=== PATIENT | female | born 1970 | race Hispanic/Latino ===

== ENCOUNTER 2018-01-27 10:06 | Emergency (ER) | payer OTHER ==
--- NOTE | 2018-01-27 11:28 | RAD REPORT ---
EXAM DESCRIPTION: CT - Stone Protocol - 01/27/2018 10:55 am CLINICAL HISTORY: Abdominal pain. Nausea and diarrhea COMPARISON: May 2017 TECHNIQUE: Computed axial tomography of the abdomen pelvis was obtained without oral or IV contrast. Lack of IV and oral contrast limits evaluation of solid organs, bowel, and vessels. Coronal reformat sam images were obtained and reviewed. All CT scans are performed using dose optimization technique as appropriate and may include automated exposure control or mA/KV adjustment according to patient size. FINDINGS: A renal calculus is not seen. An ureteral calculus is not noted. A bladder calculus is not present. The liver, spleen, pancreas and adrenals appear grossly normal Diverticula stem from the colon without evidence of diverticulitis. The appendix appears normal The gallbladder is been removed. A small umbilical hernia is present. IMPRESSION: Negative for a genitourinary calculus
[2018-01-27 11:39] LABS: Absolute Lymphocytes (CBC) 2.1 K/uL (0.7-4.9); Absolute Monocytes 0.5 K/uL (0.1-1.3); Absolute Neutrophil 2.8 K/uL (1.8-8.0); Basophils % 0.9 % (0-1.3); Eosinophils % 1.7 % (0-4.4); Hematocrit 33.9 % (36.0-45.0); Lymphocytes % 37.7 % (15.3-44.8); MCH 27.4 pg (27.0-35.0); MCV 84.6 fL (80-100); MPV 8.9 fL (7.6-11.3); Monocytes % 9.1 % (3.3-12.3); RBC Red Blood Cell Count 4.01 M/uL (3.86-4.86)
[2018-01-27 11:55] LABS: ALT/SGPT 26 IU/L (10-60); AST/SGOT 29 IU/L (10-42); Bicarbonate 28 mEq/L (21-31); Glucose Level 112 mg/dL (65-120); Lipase 29 U/L (22-51); Potassium 3.5 mEq/L (3.6-5.0); Sodium Level 139 mEq/L (135-145)
[2018-01-27 11:58] LABS: Urine Blood 2+ (NEG); Urine Glucose NEGATIVE (NEG); Urine Protein TRACE (NEG); Urine Specific Gravity >1.030 (1.005-1.030); Urine pH 5.5 (5.0-7.0)
[2018-01-27 12:01] LABS: Alkaline Phosphatase 75 IU/L (42-121); BUN Blood Urea Nitrogen 12 mg/dL (6-20); Bilirubin Direct < 0.1 mg/dL (0-0.2); Bilirubin Total 0.6 mg/dL (0.3-1.2); Protein, Total 7.9 g/dL (6.0-8.3)
[2018-01-27 12:09] LABS: Urine Amorphous Sediment 3+ /HPF (NONE SEEN); Urine Bacteria NONE SEEN /HPF (<20); Urine Culture Reflex Order NOT NEEDED; Urine RBC <5 /HPF (NONE SEEN)
[2018-01-27] MEDS ORDERED: NA CHLORIDE 0.9% 1,000 ML ONE (12:20)
--- NOTE | 2018-01-27 13:15 | EDPHYS ---
Physician Documentation [facility] Name: Maria G Ndiaye Age: 47 yrs Sex: Female : 1970 Arrival Date: 01/27/2018 Time: 10:09 Bed 30 Private MD: out of town, doctor ED Physician Jarod Grullon HPI: 01/27 13:59 This 47 yrs old Female presents to ER via Ambulatory with complaints of gs Abdominal Swelling. 13:59 The patient presents with abdominal pain that is diffuse. Onset: The symptoms/episode gs began/occurred 2 day(s) ago. The symptoms do not radiate. Associated signs and symptoms: Pertinent positives: constipation. The symptoms are described as crampy. Modifying factors: The symptoms are alleviated by nothing, the symptoms are aggravated by nothing. Severity of pain: At its worst the pain was moderate in the emergency department the pain has improved mildly. The patient has experienced similar episodes in the past, a few times, and the symptoms today are exactly the same, to when the patient was apparently diagnosed with diverticulitis. 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 - Social history:: Smoking status: Patient/guardian denies using tobacco. - Ebola Screening: : No symptoms or risks identified at this time. ROS: 13:59 Abdomen/GI: Negative for nausea and vomiting. gs 13:59 All other systems are negative. Exam: 13:59 Head/Face: Normocephalic, atraumatic. Eyes: Pupils equal round and reactive to light, gs extra-ocular motions intact. Lids and lashes normal. Conjunctiva and sclera are non-icteric and not injected. Cornea within normal limits. Periorbital areas with no swelling, redness, or edema. ENT: Nares patent. No nasal discharge, no septal abnormalities noted. Tympanic membranes are normal and external auditory canals are clear. Oropharynx with no redness, swelling, or masses, exudates, or evidence of obstruction, uvula midline. Mucous membranes moist. Neck: Trachea midline, no thyromegaly or masses palpated, and no cervical lymphadenopathy. Supple, full range of motion without nuchal rigidity, or vertebral point tenderness. No Meningismus. Chest/axilla: Normal chest wall appearance and motion. Nontender with no deformity. No lesions are appreciated. Cardiovascular: Regular rate and rhythm with a normal S1 and S2. No gallops, murmurs, or rubs. Normal PMI, no JVD. No pulse deficits. Respiratory: Lungs have equal breath sounds bilaterally, clear to auscultation and percussion. No rales, rhonchi or wheezes noted. No increased work of breathing, no retractions or nasal flaring. Back: No spinal tenderness. No costovertebral tenderness. Full range of motion. Skin: Warm, dry with normal turgor. Normal color with no rashes, no lesions, and no evidence of cellulitis. MS/ Extremity: Pulses equal, no cyanosis. Neurovascular intact. Full, normal range of motion. Neuro: Awake and alert, GCS 15, oriented to person, place, time, and situation. Cranial nerves II-XII grossly intact. Motor strength 5/5 in all extremities. Sensory grossly intact. Cerebellar exam normal. Normal gait. 13:59 Constitutional: The patient appears alert, awake. 13:59 Abdomen/GI: Palpation: moderate abdominal tenderness, in all quadrants, rebound tenderness, is not appreciated. 15:30 ECG was reviewed by the Attending Physician. Vital Signs: 10:24 BP 118 / 79; Pulse 79; Resp 18 S; Temp 97.0(TE); Pulse Ox 99% on R/A; Weight 85.28 kg aa5 (R); Height 5 ft. 4 in. (162.56 cm) (R); Pain 0/10; 11:42 BP 142 / 88; Pulse 62; Resp 18; Pulse Ox 100% on R/A; aj 12:55 BP 153 / 86; Pulse 72; Resp 18; Pulse Ox 98% on R/A; aj 10:24 Body Mass Index 32.27 (85.28 kg, 162.56 cm) aa5 MDM: 10:35 Patient medically screened. 13:59 Differential diagnosis: bowel obstruction, diverticulitis, gastritis, non-specific abd gs pain. Data reviewed: vital signs, nurses notes. Response to treatment: the patient's symptoms have markedly improved after treatment, and as a result, I will discharge patient. 01/27 10:40 Order name: Hepatic Function; Complete Time: 12:11 gs 01/27 10:40 Order name: Basic Metabolic Panel; Complete Time: 12:11 gs 01/27 10:40 Order name: CBC with Diff; Complete Time: 12:11 gs 01/27 10:40 Order name: Lipase; Complete Time: 12:11 gs 01/27 10:40 Order name: Urine Microscopic Only; Complete Time: 12:11 gs 01/27 11:55 Order name: Urine Dipstick--Ancillary (enter results); Complete Time: 12:11 bd 01/27 10:40 Order name: IV Saline Lock; Complete Time: 11:30 gs 01/27 10:40 Order name: Labs collected and sent; Complete Time: 11:30 gs 01/27 10:40 Order name: Urine Dipstick-Ancillary (obtain specimen); Complete Time: 11:30 gs 01/27 10:40 Order name: EKG; Complete Time: 10:40 01/27 10:40 Order name: CT Stone Protocol; Complete Time: 11:36 gs 01/27 11:55 Order name: Urine --Ancillary (enter results); Complete Time: 12:11 bd EC:30 Rate is 67 beats/min. Rhythm is regular. CA interval is normal. QRS interval is gs prolonged. T waves are Normal. No ST changes noted. Clinical impression: Abnormal EKG without significant change. Interpreted by me. Administered Medications: 12:30 Drug: NS 0.9% 1000 ml Route: IV; Rate: 1 bolus; Site: right antecubital; juan 13:38 Follow up: Response: No adverse reaction; IV Status: Completed infusion; IV Intake: aj 1000ml Disposition: 01/27/18 13:14 Discharged to Home. Impression: Generalized abdominal pain. - Condition is Stable. - Discharge Instructions: Abdominal Pain, Adult. - Prescriptions for Miralax 17 gram/dose Oral - take 1 packet by ORAL route once daily dilute powder in 8 ounces of water or juice; 1 bottle. - Medication Reconciliation Form, Thank You Letter, Antibiotic Education, Prescription Opioid Use form. - Follow up: Private Physician; When: 2 - 3 days; Reason: Re-evaluation by your physician. Signatures: Dispatcher [employer] Lakia Paulson, RN Desirae Pabon RN RN aa5 Jarod Grullon MD MD gs Corrections: (The following items were deleted from the chart) 13:58 13:14 01/27/2018 13:14 Discharged to Home. Impression: Generalized abdominal pain. aj Condition is Stable. Forms are Medication Reconciliation Form, Thank You Letter, Antibiotic Education, Prescription Opioid Use. Follow up: Private Physician; When: 2 - 3 days; Reason: Re-evaluation by your physician. gs
--- NOTE | 2018-01-27 13:15 | ER ---
Nurse's Notes [facility] Name: Maria G Ndiaye Age: 47 yrs Sex: Female : 1970 Arrival Date: 01/27/2018 Time: 10:09 Bed 30 Private MD: out of town, doctor Diagnosis: Generalized abdominal pain Presentation: 01/27 10:20 Presenting complaint: Patient states: "I feel bloated and I don't know if it's another aa5 diverticulosis attack". Pt states "I also feel short of breath on and off". Pt reports nausea and diarrhea, denies vomiting. Transition of care: patient was not received from another setting of care. Onset of symptoms was January 2018. Risk Assessment: Do you want to hurt yourself or someone else? Patient reports no desire to harm self or others. Initial Sepsis Screen: Does the patient meet any 2 criteria? No. Patient's initial sepsis screen is negative. Does the patient have a suspected source of infection? No. Patient's initial sepsis screen is negative. Care prior to arrival: None. 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 - Social history:: Smoking status: Patient/guardian denies using tobacco. - Ebola Screening: : No symptoms or risks identified at this time. Screenin:14 Abuse screen: Denies threats or abuse. Denies injuries from another. Nutritional aj screening: No deficits noted. Tuberculosis screening: No symptoms or risk factors identified. Fall Risk None identified. Assessment: 11:13 Reassessment: Attempted to assess patient. Patient was speaking on her phone with aj someone, I stated I would return when he finished her conversation. 11:27 General: Appears in no apparent distress. comfortable, Behavior is calm, cooperative, aj appropriate for age. Pain: Denies pain. Neuro: Level of Consciousness is awake, alert, obeys commands, Oriented to person, place, time, situation, Appropriate for age. Respiratory: Airway is patent Respiratory effort is even, unlabored, Respiratory pattern is regular, symmetrical. GI: Abdomen is non-distended, obese, Bowel sounds present X 4 quads. Abd is soft and non tender Reports bloating. Derm: Skin is intact, is healthy with good turgor, Skin is pink, warm \\T\\ dry. normal. 13:37 Reassessment: Patient appears in no apparent distress at this time. No changes from aj previously documented assessment. Patient and/or family updated on plan of care and expected duration. Pain level reassessed. Patient is alert, oriented x 3, equal unlabored respirations, skin warm/dry/pink. Patient states feeling better. Vital Signs: 10:24 BP 118 / 79; Pulse 79; Resp 18 S; Temp 97.0(TE); Pulse Ox 99% on R/A; Weight 85.28 kg aa5 (R); Height 5 ft. 4 in. (162.56 cm) (R); Pain 0/10; 11:42 BP 142 / 88; Pulse 62; Resp 18; Pulse Ox 100% on R/A; aj 12:55 BP 153 / 86; Pulse 72; Resp 18; Pulse Ox 98% on R/A; aj 10:24 Body Mass Index 32.27 (85.28 kg, 162.56 cm) aa5 ED Course: 10:09 Patient arrived in ED. mr 10:09 out of town, doctor is Private Physician. mr 10:21 Triage completed. aa5 10:21 Arm band placed on. aa5 10:29 Jarod Grullon MD is Attending Physician. gs 10:51 CT completed. Patient tolerated procedure well. Patient moved to CT via wheelchair. sw 10:54 CT Stone Protocol In Process Unspecified. EDMS 11:01 Lakia Powell, RN is Primary Nurse. aj 11:27 Patient has correct armband on for positive identification. aj 11:27 Inserted saline lock: 20 gauge in right antecubital area, using aseptic technique. aj Blood collected. 11:46 EKG done, by polysomnographic technologist. reviewed by Jarod Grullon MD. at1 13:37 No provider procedures requiring assistance completed. IV discontinued, intact, aj bleeding controlled, No redness/swelling at site. Pressure dressing applied. Administered Medications: 12:30 Drug: NS 0.9% 1000 ml Route: IV; Rate: 1 bolus; Site: right antecubital; aj 13:38 Follow up: Response: No adverse reaction; IV Status: Completed infusion; IV Intake: aj 1000ml Intake: 13:38 IV: 1000ml; Total: 1000ml. juan Outcome: 13:14 Discharge ordered by . bari 13:37 Discharged to home ambulatory. aj 13:37 Condition: good 13:37 Discharge instructions given to patient, family, Instructed on discharge instructions, follow up and referral plans. medication usage, Demonstrated understanding of instructions, follow-up care, medications, Prescriptions given X 1. 13:58 Patient left the ED. aj Signatures: Dispatcher [employer] EDLakia Lea, RN Dodie Espino Audri, RN RN aa5 Lakia fowler, department operations manager EKG Tat1 Radha Tarango Gregory, MD MD gs
--- NOTE | 2018-01-27 13:41 | EKG ---
Test Date: 2018-01-27 Test Time: 11:32:41 Entry Level Administrative Assistant: EUGENIA MEASUREMENT RESULTS: Intervals: Rate: 67 IL: 142 QRSD: 112 QT: 386 QTc: 407 Wayne: P: 31 IL: 142 QRS: 45 T: 22 INTERPRETIVE STATEMENTS: Normal sinus rhythm Normal ECG Compared to ECG 09/16/2017 21:49:05 Incomplete right bundle-branch block no longer present T-wave abnormality no longer present Electronically Signed On 01-27-18 13:40:30 CDT by Gama Sheldon
== END 2018-01-27 13:58 | disposition home or self-care (01) ==
LOC: ER 10:06
DX: R10.84 Generalized abdominal pain (principal); I10 Essential (primary) hypertension
CPT/HCPCS: 36415; 74176; 76377; 80048; 80076; 81003; 81015; 81025; 83690; 85025; 93005; 96360; 99284; J7030

== ENCOUNTER 2019-10-27 17:16 | Emergency (ER) | payer OTHER, SELFPAY ==
[2019-10-27 18:51] LABS: Absolute Lymphocytes (CBC) 2.4 K/uL (0.7-4.9); Basophils % 0.7 % (0-1.3); Hematocrit 35.2 % (36.0-45.0); MPV 8.5 fL (7.6-11.3)
[2019-10-27 18:55] LABS: Protime INR 0.96
--- NOTE | 2019-10-27 19:09 | RAD REPORT ---
EXAM DESCRIPTION: Jessica Single View10/27/2019 6:58 pm CLINICAL HISTORY: sob COMPARISON: 2018 FINDINGS: The lungs appear clear of acute infiltrate. The heart is normal size IMPRESSION: No acute abnormalities displayed
[2019-10-27 19:10] LABS: ALT/SGPT 31 U/L (12-78); AST/SGOT 17 U/L (15-37); Albumin 3.5 g/dL (3.4-5.0); Alkaline Phosphatase 98 U/L (45-117); BUN Blood Urea Nitrogen 15 mg/dL (7-18); Bicarbonate 28 mmol/L (21-32); Bilirubin Direct < 0.1 mg/dL (0-0.2); Bilirubin Total 0.2 mg/dL (0.2-1.0); Glucose Level 114 mg/dL (74-106); Magnesium 2.3 mg/dL (1.8-2.4); NT PRO-BNP 24 pg/mL (<125); Potassium 3.6 mmol/L (3.5-5.1); Protein, Total 8.2 g/dL (6.4-8.2); Sodium Level 141 mmol/L (136-145); Troponin (Emerg Dept Use Only) < 0.02 ng/mL (0.0-0.045)
--- NOTE | 2019-10-27 19:25 | EDPHYS ---
Physician Documentation [facility] Name: Maria G Ndiaye Age: 48 yrs Sex: Female : 1970 Arrival Date: 10/27/2019 Time: 17:18 Bed 18 Private MD: ED Physician Evert Buitrago HPI: 10/26 20:17 This 48 yrs old Female presents to ER via Ambulatory with complaints of kb Shortness Of Breath. 20:17 The patient has shortness of breath at rest. Onset: The symptoms/episode began/occurred kb 4 week(s) ago. Duration: The symptoms are continuous. The patient's shortness of breath is aggravated by nothing, is alleviated by nothing. Associated signs and symptoms: The patient has no apparent associated signs or symptoms. Severity of symptoms: At their worst the symptoms were mild moderate in the emergency department the symptoms are unchanged. The patient has experienced similar episodes in the past. The patient has not recently seen a physician. Pt reports shortness of breath for 4 weeks. States "I have anxiety so I kept thinking it was due to that.". 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 - Social history:: Smoking status: Patient denies any tobacco usage or history of. ROS: 20:14 Constitutional: Negative for fever, chills, and weight loss, ENT: Negative for injury, kb pain, and discharge, Neck: Negative for injury, pain, and swelling, Cardiovascular: Negative for chest pain, palpitations, and edema, Abdomen/GI: Negative for abdominal pain, nausea, vomiting, diarrhea, and constipation, Back: Negative for injury and pain, : Negative for injury, bleeding, discharge, and swelling, MS/Extremity: Negative for injury and deformity, Skin: Negative for injury, rash, and discoloration, Neuro: Negative for headache, weakness, numbness, tingling, and seizure. 20:14 Respiratory: Positive for shortness of breath. Exam: 20:14 Constitutional: This is a well developed, well nourished patient who is awake, alert, kb and in no acute distress. Head/Face: Normocephalic, atraumatic. ENT: Nares patent. No nasal discharge, no septal abnormalities noted. Tympanic membranes are normal and external auditory canals are clear. Oropharynx with no redness, swelling, or masses, exudates, or evidence of obstruction, uvula midline. Mucous membranes moist. Neck: Trachea midline, no thyromegaly or masses palpated, and no cervical lymphadenopathy. Supple, full range of motion without nuchal rigidity, or vertebral point tenderness. No Meningismus. Chest/axilla: Normal chest wall appearance and motion. Nontender with no deformity. No lesions are appreciated. Cardiovascular: Regular rate and rhythm with a normal S1 and S2. No gallops, murmurs, or rubs. Normal PMI, no JVD. No pulse deficits. Respiratory: Lungs have equal breath sounds bilaterally, clear to auscultation and percussion. No rales, rhonchi or wheezes noted. No increased work of breathing, no retractions or nasal flaring. Abdomen/GI: Soft, non-tender, with normal bowel sounds. No distension or tympany. No guarding or rebound. No evidence of tenderness throughout. Skin: Warm, dry with normal turgor. Normal color with no rashes, no lesions, and no evidence of cellulitis. MS/ Extremity: Pulses equal, no cyanosis. Neurovascular intact. Full, normal range of motion. Neuro: Awake and alert, GCS 15, oriented to person, place, time, and situation. Cranial nerves II-XII grossly intact. Motor strength 5/5 in all extremities. Sensory grossly intact. Cerebellar exam normal. Normal gait. Vital Signs: 17:31 BP 139 / 81; Pulse 79; Resp 19 S; Temp 97.1(O); Pulse Ox 97% on R/A; Weight 94.35 kg ca1 (R); Height 5 ft. 4 in. (162.56 cm) (R); Pain 0/10; 18:49 BP 158 / 87; Pulse 76; Resp 16 S; Pulse Ox 99% on R/A; jl7 17:31 Body Mass Index 35.70 (94.35 kg, 162.56 cm) ca1 MDM: 17:59 Patient medically screened. kb 20:14 Data reviewed: vital signs, nurses notes. Data interpreted: Pulse oximetry: on room air kb is 99 %. Interpretation: normal. Counseling: I had a detailed discussion with the patient and/or guardian regarding: the historical points, exam findings, and any diagnostic results supporting the discharge/admit diagnosis, lab results, radiology results, the need for outpatient follow up, a family practitioner, to return to the emergency department if symptoms worsen or persist or if there are any questions or concerns that arise at home. 10/26 18:38 Order name: Basic Metabolic Panel; Complete Time: 19:12 kb 10/26 18:38 Order name: CBC with Diff; Complete Time: 18:56 kb 10/26 18:38 Order name: LFT's; Complete Time: 19:12 kb 10/26 18:38 Order name: Magnesium; Complete Time: 19:12 kb 10/26 18:38 Order name: NT PRO-BNP; Complete Time: 19:12 kb 10/26 18:38 Order name: PT-INR; Complete Time: 19:12 kb 10/26 18:01 Order name: EKG - Nurse/Tech; Complete Time: 18:01 [facility] 10/26 18:01 Order name: EKG; Complete Time: 18:02 [facility] 10/26 18:38 Order name: Troponin (emerg Dept Use Only); Complete Time: 19:12 kb 10/26 18:38 Order name: XRAY Chest (1 view); Complete Time: 19:12 kb 10/26 18:38 Order name: Cardiac monitoring; Complete Time: 18:49 kb 10/26 18:38 Order name: IV Saline Lock; Complete Time: 18:49 kb 10/26 18:38 Order name: Labs collected and sent; Complete Time: 18:49 kb 10/26 18:38 Order name: Flu; Complete Time: 19:12 kb 10/26 18:38 Order name: O2 Per Protocol; Complete Time: 18:49 kb 10/26 18:38 Order name: O2 Sat Monitoring; Complete Time: 18:49 kb Administered Medications: No medications were administered Disposition: 10/27 10:48 Co-signature as Attending Physician, Evert Buitrago MD I agree with the assessment and kdr plan of care. Disposition: 10/27/19 19:24 Discharged to Home. Impression: Influenza due to certain identified influenza viruses. - Condition is Stable. - Discharge Instructions: Influenza, Adult, [id number]. - Work release form, Medication Reconciliation Form, Thank You Letter, Antibiotic Education, Prescription Opioid Use form. - Follow up: Emergency Department; When: As needed; Reason: Worsening of condition. Follow up: Private Physician; When: 2 - 3 days; Reason: Recheck today's complaints, Continuance of care, Re-evaluation by your physician. Signatures: Dispatcher [employer] EDMS Joselyn Hutchinson, CURBSTONE SETTER-C CURBSTONE SETTER-Evert Castelan MD MD kdr Leal, Jahala RN RN jl7 Sahara Mendez RN RN ea Anna Gordon RN RN ca1 Corrections: (The following items were deleted from the chart) 10/26 19:41 19:24 10/27/2019 19:24 Discharged to Home. Impression: Influenza due to certain ea identified influenza viruses. Condition is Stable. Forms are Medication Reconciliation Form, Thank You Letter, Antibiotic Education, Prescription Opioid Use. Follow up: Emergency Department; When: As needed; Reason: Worsening of condition. Follow up: Private Physician; When: 2 - 3 days; Reason: Recheck today's complaints, Continuance of care, Re-evaluation by your physician. kb
--- NOTE | 2019-10-27 19:25 | ER ---
Nurse's Notes [facility] Name: Maria G Ndiaye Age: 48 yrs Sex: Female : 1970 Arrival Date: 10/27/2019 Time: 17:18 Bed 18 Private MD: Diagnosis: Influenza due to certain identified influenza viruses Presentation: 10/26 17:31 Chief complaint: Patient states: SOB started about an hour ago. Reports SOB for 3-4 ca1 weeks, thought it was just anxiety but today was different. Denies cough and congestion, fever and sore throat. Reports back pains, general body weakness and nausea. Coronavirus screen: The patient has NOT traveled to a country currently being monitored by the [facility] within the last 14 days. The patient has NOT had contact with any known and/or suspected case of coronavirus. Ebola Screen: Patient negative for fever greater than or equal to 101.5 degrees Fahrenheit, and additional compatible Ebola Virus Disease symptoms Patient denies exposure to infectious person. Patient denies travel to an Ebola-affected area in the 21 days before illness onset. No symptoms or risks identified at this time. Initial Sepsis Screen: Does the patient meet any 2 criteria? No. Patient's initial sepsis screen is negative. Does the patient have a suspected source of infection? No. Patient's initial sepsis screen is negative. Risk Assessment: Do you want to hurt yourself or someone else? Patient reports no desire to harm self or others. Onset of symptoms was October 27, 2019. 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 - Social history:: Smoking status: Patient denies any tobacco usage or history of. Screenin:49 Abuse screen: Denies threats or abuse. Denies injuries from another. Nutritional jl7 screening: No deficits noted. Tuberculosis screening: No symptoms or risk factors identified. Fall Risk IV access (20 points). Total Chiu Fall Scale indicates No Risk (0-24 pts). Assessment: 18:00 General: Appears in no apparent distress. uncomfortable, Behavior is calm, cooperative, jl7 appropriate for age. Pain: Complains of pain in sore throat. Neuro: Level of Consciousness is awake, alert, obeys commands, Oriented to person, place, time, situation. Cardiovascular: Patient's skin is warm and dry. Rhythm is sinus rhythm. Respiratory: Airway is patent Respiratory effort is even, unlabored, Respiratory pattern is regular, symmetrical, Breath sounds are clear bilaterally. Derm: Skin is pink, warm \T\ dry. 19:10 General: Appears in no apparent distress. Behavior is calm, cooperative, appropriate ea for age. Pain: Denies pain. Neuro: Level of Consciousness is awake, alert, obeys commands, Oriented to person, place, time, situation. Cardiovascular: Patient's skin is warm and dry. Respiratory: Airway is patent Respiratory effort is even, unlabored, Respiratory pattern is regular, symmetrical. Derm: Skin is pink, warm \T\ dry. Vital Signs: 17:31 BP 139 / 81; Pulse 79; Resp 19 S; Temp 97.1(O); Pulse Ox 97% on R/A; Weight 94.35 kg ca1 (R); Height 5 ft. 4 in. (162.56 cm) (R); Pain 0/10; 18:49 BP 158 / 87; Pulse 76; Resp 16 S; Pulse Ox 99% on R/A; jl7 17:31 Body Mass Index 35.70 (94.35 kg, 162.56 cm) ca1 ED Course: 17:18 Patient arrived in ED. mr 17:34 Triage completed. ca1 17:36 Arm band placed on right wrist. ca1 17:39 Tien Correia, RN is Primary Nurse. jl7 17:44 EKG done, by ED staff, reviewed by Evert Buitrago MD. 3 17:58 Joselyn Hutchinson FNP-C is PHCP. kb 17:58 Evert Buitrago MD is Attending Physician. kb 18:00 Patient has correct armband on for positive identification. Placed in gown. Bed in low jl7 position. Call light in reach. Side rails up X 1. front desk monitor on. Pulse ox on. NIBP on. 18:43 Initial lab(s) drawn, by me, sent to lab. Flu and/or RSV swab sent to lab. Inserted jl7 saline lock: 20 gauge in right antecubital area, using aseptic technique. Blood collected. 18:58 XRAY Chest (1 view) In Process Unspecified. EDMS 19:15 IV discontinued, intact, bleeding controlled, No redness/swelling at site. Pressure ea dressing applied. 19:39 No provider procedures requiring assistance completed. ea Administered Medications: No medications were administered Outcome: 19:24 Discharge ordered by MD. kb 19:40 Discharged to home ambulatory. ea 19:40 Condition: stable 19:40 Discharge instructions given to patient, Instructed on discharge instructions, follow up and referral plans. Demonstrated understanding of instructions, follow-up care. 19:41 Patient left the ED. ea Signatures: Dispatcher [employer] EDMS Joselyn Hutchinson, ASSOCIATE OF SCIENCE IN NURSING-C ASSOCIATE OF SCIENCE IN NURSING-Ckb EnochSruthi CorreiaTien RN RN jl7 Tosha Rivera 3 Sahara Mendez, COLETTE RN Anna Hodges, RN RN ca1
[2019-10-27 20:04] VITALS: TEMP 97.1
[2019-10-27 20:06] VITALS: BP 158/87; O2SAT 99
--- NOTE | 2019-10-28 11:39 | EKG ---
Test Date: 2019-10-27 Test Time: 17:44:28 Test Preparer: ASHLEY MEASUREMENT RESULTS: Intervals: Rate: 77 MN: 142 QRSD: 118 QT: 368 QTc: 416 Leonard: P: 42 MN: 142 QRS: 38 T: 20 INTERPRETIVE STATEMENTS: Normal sinus rhythm Incomplete right bundle branch block Borderline ECG Compared to ECG 01/27/2018 11:32:41 Incomplete right bundle-branch block now present Electronically Signed On 10-28-19 11:36:57 PHYSIOTHERAPY ASSISTANT by Gama Sheldon
== END 2019-10-27 19:41 | disposition home or self-care (01) ==
LOC: ER 17:16
DX: J10.89 Influenza due to other identified influenza virus with other manifestations (principal); I10 Essential (primary) hypertension; F32.9 Major depressive disorder, single episode, unspecified
CPT/HCPCS: 36415; 71045; 80048; 80076; 83735; 83880; 84484; 85025; 85610; 87804; 93005; 99284

== ENCOUNTER 2020-03-20 01:46 | Emergency (ER) | payer SELFPAY ==
--- OUTSIDE RECORDS SUMMARY | 2020-03-20 01:49 | XMS REPORT | Continuity of Care Document ---
:1970 Author Organization [facility] Address [address] [place] [address] Care Team Providers Name Role Phone PHYSICIAN Primary Care Physician Unavailable Allergies, Adverse Reactions, Alerts No allergy information available. Medications Medication Status Dose Units Route Sig Qty Days Start End Instruct ions Date Date Ondansetron Active 1 ORAL Every 6 10 February Hcl Hours As , Needed 2020 as 9:24pm needed for Nausea/V omiting Problems No problem information available. Procedures Procedure Date Performed Status X-ray of chest, single view March 16, 2020 completed Relevant Diagnostic Tests and/or Laboratory Data Laboratory Results Test Date/Time Result Interpretation Reference Result Perfo rming Range Comment Site White Blood Count March 16, 5.9 4.0-11.5 M [facility], 104 2019 5:30pm [facility] [address] Red Blood Count March 16, 4.35 3.80-5.20 [facility], 104 2019 5:30pm [facility] [address] Hemoglobin March 16, 12.3 10.5-15.7 [facility], 10 4 2019 5:30pm [facility] [address] Hematocrit March 16, 38.0 34.0-50.0 [facility], 10 4 2019 5:30pm [facility] [address] Mean Corpuscular March 16, 87.4 86-100 MR , 104 Volume 2019 5:30pm [facility] [address] Mean Corpuscular March 16, 28.3 26.2-33.4 MR , 104 Hemoglobin 2019 5:30pm [facility] [address] Mean Corpuscular March 16, 32.4 30-34 [facility], 104 [facility] Hemoglobin Concent 2019 5:30pm [place] [address] Red Cell March 16, 13.3 12.0-15.5 [facility], 104 Distribution Width 2019 5:30pm [place] [address] Platelet Count March 16, 468 165-450 [facility] , 104 [facility] 2019 5:30pm [place] [address] Mean Platelet March 16, 9.8 9.4-12.6 [facility], 104 [facility] Volume 2020 5:30pm [place] [address] Neutrophils (%) March 16, 57.9 44.4-80.1 [facility], 104 [facility] (Auto) 2019 5:30pm [place] [address] Immature March 16, 0.5 0.0-0.4 [facility], 104 [facility] Granulocyte % 2019 5:30pm [place] [address] (Auto) Lymphocytes (%) March 16, 31.8 10.0-50.0 [facility], 104 [facility] (Auto) 2019 5:30pm [place] [address] Monocytes (%) March 16, 9.0 3.6-12.0 [facility], 104 [facility] (Auto) 2019 5:30pm [place] [address] Eosinophils (%) March 16, 0.5 0.0-5.4 [facility], 104 [facility] (Auto) 2019 5:30pm [place] [address] Basophils (%) March 16, 0.3 0.1-1.2 [facility], 104 [facility] (Auto) 2019 5:30pm [place] [address] Neutrophils # March 16, 3.43 1.56-6.13 [facility], 104 [facility] (Auto) 2020 5:30pm [place] [address] Absolute Immature March 16, 0.0 0.0-0.03 [facility], 104 [facility] Granulocyte (auto 2020 5:30pm [place] [address] Lymphocytes # March 16, 1.9 1.18-3.74 [facility], 104 [facility] (Auto) 2020 5:30pm [place] [address] Monocytes # (Auto) March 16, 0.53 0.24-0.86 [facility], 104 [facility] 2019 5:30pm [place] [address] Eosinophils # March 16, 0.03 0.04-0.36 [facility], 104 (Auto) 2019 5:30pm [place] [address] Basophils # (Auto) March 16, 0.02 0.01-0.08 [facility], 104 2019 5:30pm [place] [address] Nucleated Red March 16, 0 0-0.2 [facility], 104 Blood Cells % 2019 5:30pm [place] [address] Nucleated Red March 16, 0 0 [facility], Blood Cells # 2019 5:30pm [place] [address] Urine Color March 16, YELLOW [facility], 1 04 2019 5:35pm [place] [address] Urine Appearance March 16, CLEAR CLEAR [facility], 104 2019 5:35pm [facility] [address] Urine Glucose (UA) March 16, NEGATIVE NEGATIVE [facility], 104 2019 5:35pm [facility] [address] Urine Bilirubin March 16, NEGATIVE NEGATIVE [facility], 104 2019 5:35pm [facility] [address] Urine Ketones March 16, 2+(MODERA NEGATIVE [facility], 104 2019 5:35pm TE) [facility] [address] Urine Specific March 16, 1.015 1.003-1.03 [facility], 104 2019 5:35pm [address] [facility] [address] Urine Blood March 16, TRACE NEGATIVE [facility], 1 04 2019 5:35pm [facility] [address] Urine pH March 16, 5.500 5-9 [facility], 104 2019 5:35pm [facility] [address] Urine Protein March 16, TRACE NEGATIVE [facility], 104 2019 5:35pm [place] [address] Urine Urobilinogen March 16, 2.0-3.0 0.2-1.0 [facility], 104 2019 5:35pm [facility] [address] Urine Nitrate March 16, NEGATIVE NEGATIVE [facility], 2019 5:35pm [facility] [address] Urine Leukocyte March 16, 2+ NEGATIVE [facility], 104 2019 5:35pm [place] [address] Urine RBC March 16, 1-5 0-5 [facility], 104 2019 5:35pm [place] [address] Urine WBC Maria Guadalupe 23rd, 1-5 0-5 [facility], 104 2019 5:35pm [place] [address] Urine Epithelial March 16, 1-5 0-5 MR , 104 ST Cells 2019 5:35pm [place] [address] Urine Bacteria March 16, None [facility] , 104 2019 5:35pm Detected Detect [facility] [address] Urine Casts March 16, 2-[address] [facility], 1 04 2019 5:35pm Detect [facility] [address] Urine Culture March 16, YES [facility], 104 ST Reflexed 2020 5:35pm [place] [address] Random Glucose March 16, 114 74-106 [facility] , 104 2019 5:30pm [place] [address] Blood Urea March 16, 12 6-20 [facility], 10 4 Nitrogen 2019 5:30pm [facility] [address] Serum Osmolality March 16, 280 280-300 MR , 104 2019 5:30pm [facility] [address] Creatinine March 16, 0.9 0.50-0.90 [facility], 10 4 2019 5:30pm [place] [address] Glomerular March 16, > 60.[address] [facility], 104 Filtration Rate 2020 5:30pm [facility] [address] Calc REPORTED IN mL/min/1.73 m2.Normal GFR: >60mL/minMo derately decreased GFR: 30-59 mL/minSever landy decreased GFR: 15-29 mL/minKidne y Failure (or Dialysis): <15 mL/minThe calculated eGFR is not valid for patients younger than 18 years or older than 75 years. BUN/Creatinine March 16, 13.3 12-20 [facility] , 104 Ratio 2020 5:30pm [place] [address] Sodium Level March 16, 140 135-145 [facility], 104 2019 5:30pm [place] [address] Potassium Level March 16, 3.3 3.5-5.2 [facility] , 104 2019 5:30pm [place] [address] Chloride Level March 16, 102 98-108 [facility] , 104 2019 5:30pm [facility] [address] Carbon Dioxide March 16, 24 21-32 [facility] , 104 Level 2020 5:30pm [place] [address] Anion Gap March 16, 17.3 12-20 [facility], 104 2019 5:30pm [facility] [address] Calcium Level March 16, 9.6 8.6-10.0 [facility], 104 2019 5:30pm [facility] [address] Total Protein March 16, 8.2 6.6-8.7 [facility], 104 2019 5:30pm [facility] [address] Albumin March 16, 4.1 3.5-5.2 [facility], 104 2019 5:30pm [facility] [address] Globulin March 16, 4.1 [facility], 104 2019 5:30pm [facility] [address] Albumin/Globulin March 16, 1.0 >1.0 [facility], 104 Ratio 2020 5:30pm [facility] [address] Total Bilirubin March 16, 0.7 0.0-1.2 [facility], 104 2019 5:30pm [facility] [address] Aspartate Amino March 16, 122 15-32 [facility], 104 Transf (AST/SGOT) 2020 5:30pm [facility] [address] Alanine March 16, 127 0-33 [facility], 104 Aminotransferase 2019 5:30pm [facility] [address] (ALT/SGPT) Lipase March 16, 50 13-60 [facility], 104 2019 5:30pm [facility] [address] Total Alkaline March 16, 140 35-105 [facility] , 104 Phosphatase 2019 5:30pm [facility] [address] Health Concerns Health Concerns may be documented in an alternate section. Chief Complaint and Reason for Visit Chief Complaint Abdominal/GI/Nausea/Vomiting Reason for Visit [id number] Encounters Encounter Location(s) Arrival/Admit Date Discharge/Depart Date Provider(s) Departed [place] March 16, 2020 March 16, 2020 [facility] Emergency Room [facility] 4:41pm 9:50pm BRENTON Harris MD Ctr Assessments No Assessments Information Available Functional Status No Functional Status information available Goals Goals may be documented in an alternate section. Immunizations No Immunization Information Available Mental Status No Mental Status Information Available Medical Equipment No Medical Equipment Information available Insurance Providers Guarantor Maria G Eldridge Address [address] [place] [id number] Contact Info. Home Phone: Payer Policy Id Coverage Id Subscriber's Subscriber Id Effective E xpiration Name Date Date Self Pay Senthil, Maria G Insurance Plan of Treatment stop Tylenol, reeval in 5d by PCP, Rx ondansetron, return for worse SOB, abd or chest pain Future Tests Future scheduled test information is unavailable Pending Tests Test Name Date ordered Urine Culture March 16, 2020 5:35pm Future Visits Future appointment information is unavailable Referrals to Other Providers Reason for Referral Start Provider Provider Contact Provider Address Referral Date Information PHYSICIAN, NO Future Procedures Future procedure information is unavailable Future Medications Future medication information is unavailable Patient Instructions Viral Respiratory Infection, Easy-To-Chelsie d Fatty Liver Disease Social History Smoking Status Status Date of Observation Never smoked tobacco (finding) March 16, 2020 5:03pm Assigned Sex Female Vital Signs Vital Reading Result Collection Date/Time Weight 197 [lb_av] March 16, 2020 5:03 pm BMI (Body Mass Index) 33.8 kg/m2 March 16, 2020 5: 03pm
[2020-03-20 03:47] LABS: Absolute Lymphocytes (CBC) 1.9 K/uL (0.7-4.9); Basophils % 0.9 % (0-1.3); Lymphocytes % 22.7 % (15.3-44.8); RBC Red Blood Cell Count 3.86 M/uL (3.86-4.86)
[2020-03-20 03:51] LABS: Protime INR 0.99
[2020-03-20 04:16] LABS: ALT/SGPT 107 U/L (12-78); AST/SGOT 63 U/L (15-37); Albumin 3.5 g/dL (3.4-5.0); Alkaline Phosphatase 125 U/L (45-117); BUN Blood Urea Nitrogen 8 mg/dL (7-18); Bicarbonate 28 mmol/L (21-32); Bilirubin Direct 0.1 mg/dL (0-0.2); Bilirubin Total 0.5 mg/dL (0.2-1.0); CKMB Creatine Kinase MB < 1.0 ng/mL (0.3-3.6); Creatine Phosphokinase 65 U/L (26-192); Glucose Level 145 mg/dL (74-106); Lipase 259 U/L (73-393); NT PRO-BNP 26 pg/mL (<125); Sodium Level 142 mmol/L (136-145); Troponin (Emerg Dept Use Only) < 0.02 ng/mL (0.0-0.045)
[2020-03-20 04:19] LABS: Potassium 2.7 mmol/L (3.5-5.1)
--- NOTE | 2020-03-20 05:17 | ER ---
Nurse's Notes [facility] Name: Maria G Ndiaye Age: 49 yrs Sex: Female : 1970 Arrival Date: 03/20/2020 Time: 01:47 Bed 17 Private MD: Diagnosis: Coronavirus infection, unspecified Presentation: 03/20 02:28 Chief complaint: Patient states: Tested COVID Positive 03/08/20; States not feeling lp1 better, continued cough, fatigue, pain with breathing. Coronavirus screen: Prior COVID test collected on: 03/08/20. Ebola Screen: No symptoms or risks identified at this time. Initial Sepsis Screen: Does the patient meet any 2 criteria? No. Patient's initial sepsis screen is negative. Does the patient have a suspected source of infection? No. Patient's initial sepsis screen is negative. Risk Assessment: Do you want to hurt yourself or someone else? Patient reports no desire to harm self or others. Onset of symptoms was March 20, 2020. 02:28 Method Of Arrival: Ambulatory lp1 02:28 Acuity: CECILIA 3 lp1 Triage Assessment: 05:00 Respiratory: Onset: The symptoms/episode began/occurred gradually, the patient has mild lp1 shortness of breath. 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 lp1 Historical: - Allergies: 02:32 Ciprofloxacin; lp1 - Home Meds: 02:32 Seroquel 25 mg Oral tab 1 tab daily [Active]; Zoloft 25 mg Oral tab 1 tab once daily lp1 [Active]; Wellbutrin SR 150 mg Oral TbER 1 tab once daily [Active]; omeprazole 20 mg Oral cpDR 1 cap once daily [Active]; losartan 50 mg Oral tab 1 tab once daily [Active]; Flagyl 500 mg Oral tab 1 tab every 6 hours [Active]; azithromycin 500 mg Oral tab 1 tab once daily [Active]; amlodipine 5 mg tab 1 tab once daily [Active]; Albuterol Inhl [Active]; - PMHx: 02:32 Anemia; Depression; Diverticulitis; Hypertension; lp1 - PSHx: 02:32 Tubal ligation; Cholecystectomy; lp1 - Immunization history:: Adult Immunizations up to date. - Social history:: Smoking status: . Screenin:33 Abuse screen: Denies threats or abuse. Denies injuries from another. Nutritional lp1 screening: No deficits noted. Tuberculosis screening: No symptoms or risk factors identified. Fall Risk None identified. Assessment: 03:00 General: Appears in no apparent distress. Behavior is calm, cooperative, appropriate lp1 for age. Pain: Complains of pain in back. Neuro: Level of Consciousness is awake, alert, obeys commands, Oriented to person, place, time, situation. Cardiovascular: Patient's skin is warm and dry. Respiratory: Reports shortness of breath cough that is Airway is patent Respiratory effort is even, unlabored, Breath sounds are clear bilaterally. GI: No signs and/or symptoms were reported involving the gastrointestinal system. : No signs and/or symptoms were reported regarding the genitourinary system. EENT: No signs and/or symptoms were reported regarding the EENT system. Derm: Skin is pink, warm \T\ dry. Musculoskeletal: No deficits noted. 05:34 Reassessment: Verbal order from Dr. Yancey for Xanax 1mg PO. lp1 Vital Signs: 02:28 BP 139 / 75; Pulse 82; Resp 18; Temp 98.3(O); Pulse Ox 100% on R/A; Weight 86.18 kg lp1 (R); Height 5 ft. 4 in. (162.56 cm); 04:00 BP 139 / 75; Pulse 65; Resp 18; Pulse Ox 99% on R/A; lp1 05:18 BP 121 / 68; Pulse 76; Resp 18; Pulse Ox 100% on R/A; ds4 02:28 Body Mass Index 32.61 (86.18 kg, 162.56 cm) lp1 ED Course: 01:47 Patient arrived in ED. ds1 02:19 Isaias Yancey MD is Attending Physician. tw4 02:30 Triage completed. lp1 02:30 Arm band placed on. lp1 02:44 XRAY CXR (1 view) In Process Unspecified. EDMS 03:30 Inserted saline lock: 20 gauge in left antecubital area, using aseptic technique. Blood ds4 collected. 04:00 Patient has correct armband on for positive identification. lp1 04:20 Notified ED physician of a critical lab result(s). potassium of 2.7. jd3 05:18 Blood Culture Adult (2) Sent. ds4 05:33 Ros Buchanan, RN is Primary Nurse. lp1 05:56 No provider procedures requiring assistance completed. IV discontinued, No lp1 redness/swelling at site. Pressure dressing applied. Administered Medications: 05:30 Drug: Decadron - Dexamethasone 10 mg Route: IVP; Site: left antecubital; lp1 05:55 Follow up: Response: No adverse reaction; Medication administered at discharge. lp1 05:30 Drug: AZITHromycin 500 mg Route: PO; lp1 05:55 Follow up: Response: No adverse reaction; Medication administered at discharge. lp1 05:30 Drug: Potassium Effervescent Tablet 50 mEq Route: PO; lp1 05:55 Follow up: Response: No adverse reaction; Medication administered at discharge. lp1 05:45 Drug: XANax Tablet 1 mg Route: PO; lp1 05:55 Follow up: Response: Medication administered at discharge. lp1 Outcome: 05:16 Discharge ordered by . tw4 05:56 Discharged to home ambulatory, with family. lp1 05:56 Condition: good 05:56 Discharge instructions given to patient, Instructed on discharge instructions, follow up and referral plans. medication usage, Demonstrated understanding of instructions, follow-up care, medications, Prescriptions given X 3. 06:01 Patient left the ED. lp1 Signatures: Dispatcher [employer] EDMD GravesMayte pardo ds1 Ros Buchanan, RN RN lp1 Gil Smith ds4 Enio Donato RN RN jIsaias Sosa MD MD tw4
--- NOTE | 2020-03-20 05:17 | EDPHYS ---
Physician Documentation [facility] Name: Maria G Ndiaye Age: 49 yrs Sex: Female : 1970 Arrival Date: 03/20/2020 Time: 01:47 Bed 17 Private MD: ED Physician Isaias Yancey HPI: 03/20 02:53 This 49 yrs old Female presents to ER via Ambulatory with complaints of tw4 Covid+, Breathing Difficulty. 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 lp1 Historical: - Allergies: 02:32 Ciprofloxacin; lp1 - Home Meds: 02:32 Seroquel 25 mg Oral tab 1 tab daily [Active]; Zoloft 25 mg Oral tab 1 tab once daily lp1 [Active]; Wellbutrin SR 150 mg Oral TbER 1 tab once daily [Active]; omeprazole 20 mg Oral cpDR 1 cap once daily [Active]; losartan 50 mg Oral tab 1 tab once daily [Active]; Flagyl 500 mg Oral tab 1 tab every 6 hours [Active]; azithromycin 500 mg Oral tab 1 tab once daily [Active]; amlodipine 5 mg tab 1 tab once daily [Active]; Albuterol Inhl [Active]; - PMHx: 02:32 Anemia; Depression; Diverticulitis; Hypertension; lp1 - PSHx: 02:32 Tubal ligation; Cholecystectomy; lp1 - Immunization history:: Adult Immunizations up to date. - Social history:: Smoking status: . ROS: 05:39 Constitutional: Negative for fever, chills, and weight loss, Eyes: Negative for injury, tw4 pain, redness, and discharge, Cardiovascular: Negative for chest pain, palpitations, and edema, Abdomen/GI: Negative for abdominal pain, nausea, vomiting, diarrhea, and constipation, Back: Negative for injury and pain, MS/Extremity: Negative for injury and deformity, Skin: Negative for injury, rash, and discoloration, Neuro: Negative for headache, weakness, numbness, tingling, and seizure. 05:39 Respiratory: Positive for shortness of breath. Exam: 05:50 Constitutional: This is a well developed, well nourished patient who is awake, alert, tw4 and in no acute distress. Head/Face: Normocephalic, atraumatic. Chest/axilla: Normal chest wall appearance and motion. Nontender with no deformity. No lesions are appreciated. Cardiovascular: Regular rate and rhythm with a normal S1 and S2. No gallops, murmurs, or rubs. Normal PMI, no JVD. No pulse deficits. Respiratory: Lungs have equal breath sounds bilaterally, clear to auscultation and percussion. No rales, rhonchi or wheezes noted. No increased work of breathing, no retractions or nasal flaring. Abdomen/GI: Soft, non-tender, with normal bowel sounds. No distension or tympany. No guarding or rebound. No evidence of tenderness throughout. Back: No spinal tenderness. No costovertebral tenderness. Full range of motion. Skin: Warm, dry with normal turgor. Normal color with no rashes, no lesions, and no evidence of cellulitis. MS/ Extremity: Pulses equal, no cyanosis. Neurovascular intact. Full, normal range of motion. Neuro: Awake and alert, GCS 15, oriented to person, place, time, and situation. Cranial nerves II-XII grossly intact. Motor strength 5/5 in all extremities. Sensory grossly intact. Cerebellar exam normal. Normal gait. Vital Signs: 02:28 BP 139 / 75; Pulse 82; Resp 18; Temp 98.3(O); Pulse Ox 100% on R/A; Weight 86.18 kg lp1 (R); Height 5 ft. 4 in. (162.56 cm); 04:00 BP 139 / 75; Pulse 65; Resp 18; Pulse Ox 99% on R/A; lp1 05:18 BP 121 / 68; Pulse 76; Resp 18; Pulse Ox 100% on R/A; ds4 02:28 Body Mass Index 32.61 (86.18 kg, 162.56 cm) lp1 MDM: 02:26 Patient medically screened. tw4 05:51 Differential diagnosis: Bronchitis CHF exacerbation, pneumonia, pulmonary edema, tw4 reactive airway disease. Antibiotic administration: The patient is discharged and will get outpatient antibiotics. Data reviewed: vital signs, nurses notes. Data reviewed: lab test result(s), cardiac enzymes, CBC, electrolytes, hepatic panel, EKG, radiologic studies, plain films. Data interpreted: Pulse oximetry: Interpretation: normal. Test interpretation: by ED physician or midlevel provider: plain radiologic studies. Counseling: I had a detailed discussion with the patient and/or guardian regarding: the historical points, exam findings, and any diagnostic results supporting the discharge/admit diagnosis. Special discussion: I discussed with the patient/guardian in detail that at this point there is no indication for admission to the hospital. It is understood, however, that if the symptoms persist or worsen the patient needs to return immediately for re-evaluation. 03/20 02:21 Order name: Blood Culture Adult (2) 03/20 02:21 Order name: BMP; Complete Time: 04:20 03/20 04:20 Interpretation: Normal except: K 2.7; GLUC 145; GFR 72. 03/20 02:21 Order name: CBC with Diff; Complete Time: 04:20 03/20 04:21 Interpretation: Normal except: HGB 11.3; HCT 33.0; PLT 540. 03/20 02:21 Order name: Ckmb; Complete Time: 04:20 03/20 04:21 Interpretation: Within normal limits: CKMB < 1.0. 03/20 02:21 Order name: CPK; Complete Time: 04:20 03/20 04:21 Interpretation: Within normal limits: CPK 65. 03/20 02:21 Order name: D-Dimer; Complete Time: 04:20 03/20 04:21 Interpretation: Abnormal: D-DIMER 4014. 03/20 02:21 Order name: XRAY CXR (1 view) 03/20 02:21 Order name: Hepatic Function; Complete Time: 04:20 03/20 04:21 Interpretation: Abnormal: AST 63; ALT 107; ALK 125; GLOB 4.5; A/G 0.8. 03/20 02:21 Order name: Lipase; Complete Time: 04:20 03/20 04:21 Interpretation: Within normal limits: LIP 259. 03/20 02:21 Order name: Magnesium; Complete Time: 04:20 03/20 04:21 Interpretation: Within normal limits: MG 2.0. 03/20 02:21 Order name: NT PRO-BNP; Complete Time: 04:20 03/20 04:21 Interpretation: Within normal limits: NT PRO-BNP 26. 03/20 02:21 Order name: PT-INR; Complete Time: 04:20 03/20 04:22 Interpretation: Within normal limits: PT 11.7. 03/20 02:21 Order name: Ptt, Activated; Complete Time: 04:20 03/20 04:22 Interpretation: Within normal limits: PTT 31.8. 03/20 02:21 Order name: Troponin (emerg Dept Use Only); Complete Time: 04:20 03/20 04:22 Interpretation: Within normal limits: TROPED < 0.02. 03/20 02:21 Order name: EKG; Complete Time: 02:22 03/20 02:21 Order name: Cardiac monitoring; Complete Time: 03:33 03/20 02:21 Order name: EKG - Nurse/Tech; Complete Time: 04:31 03/20 02:21 Order name: IV Saline Lock; Complete Time: 03:33 03/20 02:21 Order name: Labs collected and sent; Complete Time: 03:33 03/20 02:21 Order name: O2 Per Protocol; Complete Time: 03:34 03/20 02:21 Order name: O2 Sat Monitoring; Complete Time: 03:34 EC:50 Rate is 65 beats/min. Rhythm is regular. QRS [place] is Normal. CA interval is normal. QRS tw4 interval is normal. QT interval is normal. No Q waves. T waves are Inverted in leads III, V2, V3. No ST changes noted. Clinical impression: NSR w/ Non-specific ST/T Changes. Interpreted by me. Reviewed by me. Administered Medications: 05:30 Drug: Decadron - Dexamethasone 10 mg Route: IVP; Site: left antecubital; lp1 05:55 Follow up: Response: No adverse reaction; Medication administered at discharge. lp1 05:30 Drug: AZITHromycin 500 mg Route: PO; lp1 05:55 Follow up: Response: No adverse reaction; Medication administered at discharge. lp1 05:30 Drug: Potassium Effervescent Tablet 50 mEq Route: PO; lp1 05:55 Follow up: Response: No adverse reaction; Medication administered at discharge. lp1 05:45 Drug: XANax Tablet 1 mg Route: PO; lp1 05:55 Follow up: Response: Medication administered at discharge. lp1 Disposition: 03/20/20 05:16 Discharged to Home. Impression: Coronavirus infection, unspecified. - Condition is Stable. - Discharge Instructions: Upper Respiratory Infection, Adult. - Prescriptions for Zithromax Z- Adam 250 mg Oral Tablet - take 1 tablet by ORAL route as directed for 5 days Day 1 - take two (2) tablets one time. Day 2, 3, 4 , 5 take one (1) tablet once daily.; 6 tablet. Medrol (Adam) 4 mg Oral Tablets, Dose Pack - take 1 tablet by ORAL route as directed - follow package instructions; 1 packet. Albuterol Sulfate 90 mcg/actuation - inhale 1-2 puff by INHALATION route every 4-6 hours; 1 Inhaler. - Medication Reconciliation Form, Thank You Letter, Antibiotic Education, Prescription Opioid Use form. - Follow up: Private Physician; When: Upon discharge from the Emergency Department; Reason: Recheck today's complaints, Continuance of care, Re-evaluation by your physician. - Problem is new. - Symptoms have improved. Signatures: Dispatcher [employer] EDRos Ling RN RN lp1 Isaias Yancey MD MD tw4 Corrections: (The following items were deleted from the chart) 06:01 05:16 03/20/2020 05:16 Discharged to Home. Impression: Coronavirus infection, lp1 unspecified. Condition is Stable. Forms are Medication Reconciliation Form, Thank You Letter, Antibiotic Education, Prescription Opioid Use. Follow up: Private Physician; When: Upon discharge from the Emergency Department; Reason: Recheck today's complaints, Continuance of care, Re-evaluation by your physician. Problem is new. Symptoms have improved. tw4
[2020-03-20] MEDS ORDERED: POTASSIUM 25 MEQ EFFERV TAB ONE (05:35)
[2020-03-20] MEDS ORDERED: AZITHROMYCIN 250 MG TAB ONE (05:35)
[2020-03-20] MEDS ORDERED: dexAMETHasone 10 MG/ML VIAL ONE (05:35)
[2020-03-20] MEDS ORDERED: ALPRAZOLAM 1 MG TABLET ONE (05:56)
--- NOTE | 2020-03-20 05:56 | EKG ---
Test Date: 2020-03-20 Test Time: 03:47:57 Hand Scraper: SUSHIL MEASUREMENT RESULTS: Intervals: Rate: 65 IN: 134 QRSD: 116 QT: 404 QTc: 420 [place]: P: 11 IN: 134 QRS: 25 T: 5 INTERPRETIVE STATEMENTS: Normal sinus rhythm Nonspecific T wave abnormality Abnormal ECG Compared to ECG 10/27/2019 17:44:28 T-wave abnormality now present Incomplete right bundle-branch block no longer present Electronically Signed On 03-20-20 05:56:22 CDT by Gama Sheldon
[2020-03-20 06:08] VITALS: TEMP 98.3
[2020-03-20 06:11] VITALS: BP 121/68; O2SAT 100
--- NOTE | 2020-03-20 08:19 | RAD REPORT ---
EXAM DESCRIPTION: RAD - Chest Single View - 03/20/2020 2:43 am CLINICAL HISTORY: SOB, positive COVID test March 08, continued cough, fatigue and pain COMPARISON: Portable October 26 TECHNIQUE: AP portable chest image was obtained 03/20/2020 2:43 am . FINDINGS: Lung volumes are slightly decreased from prior imaging. No peripheral airspace opacificati on. No focal consolidation, failure or volume overload finding. Lung parenchyma not clearly different from comparison. Heart and vasculature are normal. No measurable pleural effusion and no pneumothorax. No acute bony abnormality seen. No acute aortic findings suspected. IMPRESSION: No acute cardiopulmonary process. No new or progressive finding from the October 26 comparison study.
== END 2020-03-20 06:01 | disposition home or self-care (01) ==
LOC: ER 01:46
DX: U07.1 COVID-19 (principal); I10 Essential (primary) hypertension; F32.9 Major depressive disorder, single episode, unspecified; Z88.1 Allergy status to other antibiotic agents
CPT/HCPCS: 36415; 71045; 80048; 80076; 82550; 82553; 83690; 83735; 83880; 84484; 85025; 85379; 85610; 85730; 87040; 93005; 96374; 99284; J1100

== ENCOUNTER 2021-03-31 16:50 | Emergency (ER) | payer SELFPAY ==
[2021-03-31 17:51] LABS: Urine Blood Trace-intact (Negative); Urine Glucose Negative (Negative); Urine Protein Negative (Negative); Urine Specific Gravity 1.015 (1.005-1.030)
[2021-03-31 19:00] LABS: Urine Specific Gravity/Preg 1.015 (1.005-1.030)
[2021-03-31 19:35] LABS: Absolute Lymphocytes (CBC) 3.5 K/uL (0.7-4.9); Basophils % 0.8 % (0-1.3); Hematocrit 37.6 % (36.0-45.0); Lymphocytes % 52.5 % (15.3-44.8); MPV 8.8 fL (7.6-11.3)
[2021-03-31 19:53] LABS: ALT/SGPT 30 U/L (12-78); AST/SGOT 19 U/L (15-37); Albumin 3.8 g/dL (3.4-5.0); Alkaline Phosphatase 98 U/L (45-117); BUN Blood Urea Nitrogen 9 mg/dL (7-18); Bicarbonate 29 mmol/L (21-32); Bilirubin Direct 0.1 mg/dL (0-0.2); Bilirubin Total 0.3 mg/dL (0.2-1.0); Glucose Level 90 mg/dL (74-106); Lipase 115 U/L (73-393); Potassium 3.2 mmol/L (3.5-5.1); Protein, Total 8.3 g/dL (6.4-8.2); Sodium Level 143 mmol/L (136-145)
--- NOTE | 2021-03-31 20:19 | RAD REPORT ---
EXAM DESCRIPTION: CTAbdomen Pelvis W Contrast - 03/31/2021 8:11 pm CLINICAL HISTORY: Abdominal pain. PAIN COMPARISON: Abdomen Pelvis W Contrast dated 06/15/2017; Abdomen Pelvis W Contrast dated 7 TECHNIQUE: Biphasic CT imaging of the abdomen and pelvis was performed with 100 ml non-ionic IV cont rast. All CT scans are performed using dose optimization technique as appropriate and may include automated exposure control or mA/KV adjustment according to patient size. FINDINGS: The lung bases are clear. No focal liver lesions are identified. Cholecystectomy. Adrenal glands unremarkable. The pancreas is unremarkable. Subcentimeter right renal lesion which is likely a cyst. No stones or hydronephrosis. D iverticulosis without diverticulitis. Normal appendix. No retroperitoneal lymphadenopathy. No adrenal lesions. No suspicious bony findings. IMPRESSION: No acute intra-abdominal or pelvic finding. Normal appendix. Prior cholecystectomy.
--- NOTE | 2021-03-31 21:06 | EDPHYS ---
Physician Documentation [facility] Name: Maria G Ndiaye Age: 50 yrs Sex: Female : 1970 Arrival Date: 03/31/2021 Time: 16:51 Bed 12 Private MD: ED Physician Michael Garcia HPI: 03/31 20:59 This 50 yrs old Female presents to ER via Ambulatory with complaints of pkl Constipation. 20:59 The patient represents for recheck after previously being evaluated for. pkl 21:00 The patient represents for recheck after previously being evaluated for having pkl difficulty having bowel movement for 1 week. 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 ms4 Historical: - Allergies: 17:00 KNDA; kg - Home Meds: 17:00 Cipro 500 mg Oral tab 1 tab 2 times per day [Active]; metronidazole 500 mg Oral tab 1 kg tab once daily [Active]; losartan 100 mg oral tab 1 tab once daily [Active]; Seroquel 25 mg Oral tab 1 tab daily [Active]; Klonopin 1 mg oral tab 1 tab [Active]; - PMHx: 17:00 Anemia; Depression; Diverticulitis; Hypertension; kg - PSHx: 17:00 Ligation of fallopian tube; Cholecystectomy; kg - Immunization history:: Adult Immunizations up to date, Client reports receiving the 2nd dose of the Covid vaccine, Moderna Client reports receiving the 1st dose of the Covid vaccine, Moderna Client reports receiving the 2nd dose of the Covid vaccine, Date received: December 25, 2020. - Social history:: Smoking status: Patient denies any tobacco usage or history of. ROS: 21:00 Eyes: Negative for injury, pain, redness, and discharge, ENT: Negative for injury, pkl pain, and discharge, Neck: Negative for injury, pain, and swelling, Cardiovascular: Negative for chest pain, palpitations, and edema, Respiratory: Negative for shortness of breath, cough, wheezing, and pleuritic chest pain. 21:00 Abdomen/GI: Positive for difficulty having bowel movement. 21:00 Back: Negative for acute changes. 21:00 : Negative for urinary symptoms. 21:00 MS/extremity: Negative for acute changes. 21:00 Skin: Negative for rash. 21:00 Neuro: Negative for altered mental status, loss of consciousness. Exam: 21:00 Head/Face: Normocephalic, atraumatic. Eyes: Pupils equal round and reactive to light, pkl extra-ocular motions intact. Lids and lashes normal. Conjunctiva and sclera are non-icteric and not injected. Cornea within normal limits. Periorbital areas with no swelling, redness, or edema. ENT: Nares patent. No nasal discharge, no septal abnormalities noted. Tympanic membranes are normal and external auditory canals are clear. Oropharynx with no redness, swelling, or masses, exudates, or evidence of obstruction, uvula midline. Mucous membranes moist. Neck: Trachea midline, no thyromegaly or masses palpated, and no cervical lymphadenopathy. Supple, full range of motion without nuchal rigidity, or vertebral point tenderness. No Meningismus. Chest/axilla: Normal chest wall appearance and motion. Nontender with no deformity. No lesions are appreciated. Cardiovascular: Regular rate and rhythm with a normal S1 and S2. No gallops, murmurs, or rubs. Normal PMI, no JVD. No pulse deficits. Respiratory: Lungs have equal breath sounds bilaterally, clear to auscultation and percussion. No rales, rhonchi or wheezes noted. No increased work of breathing, no retractions or nasal flaring. Abdomen/GI: Soft, non-tender, with normal bowel sounds. No distension or tympany. No guarding or rebound. No evidence of tenderness throughout. Back: No spinal tenderness. No costovertebral tenderness. Full range of motion. Skin: Warm, dry with normal turgor. Normal color with no rashes, no lesions, and no evidence of cellulitis. MS/ Extremity: Pulses equal, no cyanosis. Neurovascular intact. Full, normal range of motion. Neuro: Awake and alert, GCS 15, oriented to person, place, time, and situation. Cranial nerves II-XII grossly intact. Motor strength 5/5 in all extremities. Sensory grossly intact. Cerebellar exam normal. Normal gait. Vital Signs: 17:12 BP 137 / 86; Pulse 75; Resp 20; Temp 97.7(TE); Pulse Ox 100% on R/A; Weight 89.81 kg kg (R); Height 5 ft. 4 in. (162.56 cm) (R); Pain 0/10; 21:14 BP 140 / 77; Pulse 61; Resp 18; Temp 98.1; Pulse Ox 97% ; Pain 2/10; ms4 17:12 Body Mass Index 33.99 (89.81 kg, 162.56 cm) kg MDM: 19:12 Patient medically screened. pkl 21:00 Data reviewed: vital signs, nurses notes, lab test result(s), radiologic studies, CT pkl scan. ED course: Discussed lab and CT Scan results with patient. Advised to follow up with PCP in 2 to 3 days. Patient understood instructions. 03/31 17:51 Order name: Urine Dipstick-Ancillary; Complete Time: 19:27 EDMS 03/31 18:09 Order name: Urine --Ancillary (enter results) eb 03/31 18:10 Order name: Urine --Ancillary; Complete Time: 19:27 EDMS 03/31 19:22 Order name: Basic Metabolic Panel; Complete Time: 20:39 kg 03/31 19:22 Order name: CBC with Diff; Complete Time: 20:39 kg 03/31 19:22 Order name: Hepatic Function; Complete Time: 20:39 kg 03/31 19:22 Order name: Lipase; Complete Time: 20:39 kg 03/31 19:22 Order name: IV Saline Lock; Complete Time: 19:22 kg 03/31 19:22 Order name: Labs collected and sent; Complete Time: 19:22 kg 03/31 19:23 Order name: CT Abd/Pelvis - IV Contrast Only; Complete Time: 20:39 kg Administered Medications: 21:02 Drug: K-Dur (potassium chloride) 40 mEq Route: PO; ms4 21:02 Follow up: Response: No adverse reaction ms4 Disposition Summary: 03/31/21 21:06 Discharge Ordered Location: Home pkl Problem: new pkl Symptoms: are unchanged pkl Condition: Stable pkl Diagnosis - Change in bowel movement habit pkl Followup: pkl - With: Private Physician - When: 2 - 3 days - Reason: Re-evaluation by your physician Forms: - Medication Reconciliation Form pkl - Thank You Letter pkl - Antibiotic Education pkl - Prescription Opioid Use pkl Signatures: Dispatcher [facility] Michael Garcia MD MD pkl Leonora Hernandez, RN RN kg Stevan, Vee, RN RN ms4
--- NOTE | 2021-03-31 21:06 | ER ---
Nurse's Notes [facility] Name: Maria G Ndiaye Age: 50 yrs Sex: Female : 1970 Arrival Date: 03/31/2021 Time: 16:51 Bed 12 Private MD: Diagnosis: Change in bowel movement habit Presentation: 03/31 17:12 Chief complaint: Patient states: Pt stated, "I'm been having diarrhea with the urge to kg push and lots of gas since Friday." Pt had tele doc visit and her Dr. started her on cipro and flagyl since Friday with no relief. Pt stated shes been doing MiraLax and fleet enema as well. Coronavirus screen: Client denies travel out of the [place] in the last 14 days. At this time, unable to obtain information related to travel outside the [place] At this time, the client does not indicate any symptoms associated with coronavirus-19. Ebola Screen: Patient negative for fever greater than or equal to 101.5 degrees Fahrenheit, and additional compatible Ebola Virus Disease symptoms Patient denies exposure to infectious person. Patient denies travel to an Ebola-affected area in the 21 days before illness onset. Initial Sepsis Screen: Does the patient meet any 2 criteria? No. Patient's initial sepsis screen is negative. Does the patient have a suspected source of infection? No. Patient's initial sepsis screen is negative. Risk Assessment: Do you want to hurt yourself or someone else? Patient reports no desire to harm self or others. Onset of symptoms was March 26, 2021. 17:12 Method Of Arrival: Ambulatory kg 17:12 Acuity: CECILIA 3 kg Triage Assessment: 17:00 General: Appears in no apparent distress. distressed, Behavior is calm, cooperative, kg appropriate for age, quiet. Pain: Denies pain. GI: Reports constipation, diarrhea, Pt stated, " I'm having diarrhea with the urge to push since Friday.". 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 ms4 Historical: - Allergies: 17:00 KNDA; kg - Home Meds: 17:00 Cipro 500 mg Oral tab 1 tab 2 times per day [Active]; metronidazole 500 mg Oral tab 1 kg tab once daily [Active]; losartan 100 mg oral tab 1 tab once daily [Active]; Seroquel 25 mg Oral tab 1 tab daily [Active]; Klonopin 1 mg oral tab 1 tab [Active]; - PMHx: 17:00 Anemia; Depression; Diverticulitis; Hypertension; kg - PSHx: 17:00 Ligation of fallopian tube; Cholecystectomy; kg - Immunization history:: Adult Immunizations up to date, Client reports receiving the 2nd dose of the Covid vaccine, Moderna Client reports receiving the 1st dose of the Covid vaccine, Moderna Client reports receiving the 2nd dose of the Covid vaccine, Date received: December 25, 2020. - Social history:: Smoking status: Patient denies any tobacco usage or history of. Screenin:58 Abuse screen: Denies threats or abuse. Denies injuries from another. Nutritional ms4 screening: No deficits noted. Tuberculosis screening: No symptoms or risk factors identified. Fall Risk None identified. Assessment: 20:57 Reassessment: Patient appears in no apparent distress at this time. No changes from ms4 previously documented assessment. Patient and/or family updated on plan of care and expected duration. Pain level reassessed. General: Appears in no apparent distress. Pain: Denies pain. Neuro: No deficits noted. Cardiovascular: No deficits noted. Respiratory: No deficits noted. GI: Bowel sounds present X 4 quads. Abd is soft and non tender X 4 quads. Reports lower abdominal pain, cramping, gaseousness. : No deficits noted. Vital Signs: 17:12 BP 137 / 86; Pulse 75; Resp 20; Temp 97.7(TE); Pulse Ox 100% on R/A; Weight 89.81 kg kg (R); Height 5 ft. 4 in. (162.56 cm) (R); Pain 0/10; 21:14 BP 140 / 77; Pulse 61; Resp 18; Temp 98.1; Pulse Ox 97% ; Pain 2/10; ms4 17:12 Body Mass Index 33.99 (89.81 kg, 162.56 cm) kg ED Course: 16:51 Patient arrived in ED. as 17:16 Triage completed. kg 19:12 Michael Garcia MD is Attending Physician. pkl 20:11 CT Abd/Pelvis - IV Contrast Only In Process Unspecified. EDMS 20:58 No provider procedures requiring assistance completed. ms4 21:15 IV discontinued, intact, bleeding controlled, No redness/swelling at site. ms4 21:15 Patient has correct armband on for positive identification. ms4 21:16 Arm band placed on Patient placed in an exam room. ms4 Administered Medications: 21:02 Drug: K-Dur (potassium chloride) 40 mEq Route: PO; ms4 21:02 Follow up: Response: No adverse reaction ms4 Outcome: 21:06 Discharge ordered by . milady 21:15 Discharged to home ambulatory. ms4 21:15 Condition: stable 21:15 Discharge instructions given to patient, Instructed on discharge instructions, Demonstrated understanding of instructions, follow-up care. 21:16 Patient left the ED. ms4 Signatures: Dispatcher [employer] EDMS Michael Garcia MD MD pkl Martinez, Amelia as Graham, Kristen, RN RN kg Vee Calles RN RN ms4
[2021-03-31] MEDS ORDERED: POTASSIUM CL SA 10 MEQ TAB PO ONE (21:27)
[2021-03-31 21:42] VITALS: BP 140/77; TEMP 98.1; O2SAT 97
== END 2021-03-31 21:16 | disposition home or self-care (01) ==
LOC: ER 16:50
DX: K59.00 Constipation, unspecified (principal); I10 Essential (primary) hypertension; F32.9 Major depressive disorder, single episode, unspecified
CPT/HCPCS: 36415; 74177; 80048; 80076; 81003; 81025; 83690; 85025; 99283; Q9967

== ENCOUNTER 2022-06-22 05:35 | Emergency (ER) | payer SELFPAY ==
--- OUTSIDE RECORDS SUMMARY | 2022-06-22 05:38 | XMS REPORT | Continuity of Care Document ---
:1970 Author Organization [facility] t Address [address] [place] [address] [address]. [address] [place] [address] Care Team Providers Name Role Phone Unavailable Unavailable Unavailable Payers Payer Name Policy Type Policy Number Effective Date Expiration Date S ource SELF-PAY CI [id number] Problems This patient has no known problems. Allergies, Adverse Reactions, Alerts This patient has no known allergies or adverse reactions. Medications This patient has no known medications. Procedures This patient has no known procedures. Encounters Start End Encounter Admission Attending Care Care Encounter Source Date/Time Date/Time Type Type Clinicians Facility Department ID 2021-09-25 Outpatient IBNS IB[facility] [id number] [facility] 12:28:10 [id number] Andrew 2021-09-25 Outpatient IBNS [facility] [id number] [facility] 12:21:21 [id number] Andrew Results This patient has no known results.
[2022-06-22] MEDS ORDERED: ONDANSETRON 4 MG/2 ML VIAL ONE (05:55)
[2022-06-22] MEDS ORDERED: FAMOTIDINE 20 MG/2 ML VIAL IV ONE (05:55)
[2022-06-22] MEDS ORDERED: NA CHLORIDE 0.9% 1,000 ML ONE (05:55)
[2022-06-22 06:02] LABS: Urine Blood 2+ (Negative); Urine Glucose Negative (Negative); Urine Protein 1+ (Negative); Urine Specific Gravity >=1.030 (1.005-1.030)
[2022-06-22 06:17] LABS: Absolute Lymphocytes (CBC) 4.4 K/uL (0.7-4.9); Hematocrit 36.3 % (36.0-45.0); Lymphocytes % 44.8 % (15.3-44.8); MCV 86.9 fL (80-100); MPV 8.1 fL (7.6-11.3); RBC Red Blood Cell Count 4.19 M/uL (3.86-4.86)
[2022-06-22] MEDS ORDERED: MAGNES/ALUMIN/SIMET 30ML UCUP ONE (06:22)
[2022-06-22 06:34] LABS: Albumin 3.8 g/dL (3.4-5.0); Bilirubin Total 0.5 mg/dL (0.2-1.0); Potassium 3.3 mmol/L (3.5-5.1); Protein, Total 8.5 g/dL (6.4-8.2)
--- NOTE | 2022-06-22 07:19 | RAD REPORT ---
EXAM DESCRIPTION: CT - Abdomen Pelvis W Contrast - 06/22/2022 6:57 am CLINICAL HISTORY: Abdominal pain, acute, nonlocalized COMPARISON: Abdomen Pelvis W Contrast dated 03/31/2021 TECHNIQUE: Biphasic, helical CT imaging of the abdomen and pelvis was performed following 100 ml non -ionic IV contrast. No oral contrast given. All CT scans are performed using dose optimization technique as appropriate and may include automated exposure control or mA/KV adjustment according to patient size. FINDINGS: No suspicious findings in the lung bases. The liver, spleen, and pancreas show no suspicious findings. Cholecystectomy clips are present. No bi liary tree dilatation. Symmetric renal function is seen with no hydronephrosis or suspicious renal mass. No pyelonephritis o r acute parenchymal process. No bladder abnormalities. No adrenal abnormalities. Uterus and ovaries s how no suspicious findings. No dilated bowel loops or bowel wall thickening. Patient has a mild victoria diverticulosis more prominent on the left. No acute diverticulitis findings. Mild mucosal level inflammatory changes can be presen t an occult on CT imaging. No free air, free fluid or inflammatory stranding. No hernia, mass or bul ky lymphadenopathy. Disc and bone degenerative changes are present. Disc bulge changes are present at the lower 2 lumbar disc levels. Spinal stenosis is suspected. Follow-up outpatient MRI imaging could be performed if the patient is symptomatic. Facet degenerative changes are also present. IMPRESSION: Contrast enhanced CT abdomen and pelvis showing no acute or emergent finding. Nonacute findings are detailed in the body of the report, not significantly different from prior imag ing.
--- NOTE | 2022-06-22 07:31 | ER ---
Nurse's Notes [facility] Name: Maria G Ndiaye Age: 51 yrs Sex: Female : 1970 Arrival Date: 06/22/2022 Time: 05:39 Bed 18 Private MD: Diagnosis: Upper abdominal pain, unspecified Presentation: 06/22 05:49 Chief complaint: Patient states: I have a sudden ballon like pain, started about 20 aa9 minutes ago. Coronavirus screen: Vaccine status: Patient reports receiving the 2nd dose of the covid vaccine. Ebola Screen: No symptoms or risks identified at this time. Initial Sepsis Screen: Does the patient meet any 2 criteria? No. Patient's initial sepsis screen is negative. Does the patient have a suspected source of infection? No. Patient's initial sepsis screen is negative. Risk Assessment: Do you want to hurt yourself or someone else? Patient reports no desire to harm self or others. Onset of symptoms was June 22, 2022. 05:49 Method Of Arrival: Wheelchair aa9 05:49 Acuity: CECILIA 3 aa9 Triage Assessment: 05:51 General: Appears uncomfortable, obese, Behavior is cooperative, anxious. Pain: aa9 Complains of pain in left upper quadrant Pain does not radiate. Pain currently is 3 out of 10 on a pain scale. Quality of pain is described as "ballon like" Pain began 30 min ago. Noted to be grimacing, moaning. Neuro: Level of Consciousness is awake, alert, obeys commands, Oriented to person, place, time, situation. Cardiovascular: Patient's skin is warm and dry. Respiratory: Airway is patent Trachea midline Respiratory effort is even, unlabored. GI: Abdomen is obese, Bowel sounds present X 4 quads. GI: Patient currently denies diarrhea, nausea, vomiting. : No signs and/or symptoms were reported regarding the genitourinary system. Derm: No signs and/or symptoms reported regarding the dermatologic system. 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 - Social history:: Smoking status: Patient denies any tobacco usage or history of. Screenin:52 Abuse screen: Denies threats or abuse. Denies injuries from another. Nutritional aa9 screening: No deficits noted. Tuberculosis screening: No symptoms or risk factors identified. Fall Risk None identified. Assessment: 06:16 General: Appears uncomfortable, obese, Behavior is calm, cooperative, appropriate for aa9 age. Pain: Complains of pain in left upper quadrant. Neuro: Level of Consciousness is awake, alert, obeys commands, Oriented to person, place, time, situation. Cardiovascular: Patient's skin is warm and dry. Respiratory: Airway is patent Respiratory effort is even, unlabored. GI: Abdomen is obese, Abd is soft and non tender in right upper quadrant, right lower quadrant and left lower quadrant Abdomen is tender to palpation in left upper quadrant. GI: Patient currently denies diarrhea, nausea, vomiting. : No signs and/or symptoms were reported regarding the genitourinary system. EENT: No signs and/or symptoms were reported regarding the EENT system. Derm: No signs and/or symptoms reported regarding the dermatologic system. 07:30 Reassessment: Patient appears in no apparent distress at this time. Patient and/or jl7 family updated on plan of care and expected duration. Pain level reassessed. Patient is alert, oriented x 3, equal unlabored respirations, skin warm/dry/pink. Patient states feeling better. Vital Signs: 05:49 BP 158 / 69; Pulse 70; Resp 18 S; Pulse Ox 97% on R/A; Weight 97.52 kg (R); Height 5 aa9 ft. 5 in. (165.10 cm) (R); Pain 3/10; 06:15 BP 155 / 66; Pulse 72; Resp 18 S; Pulse Ox 97% on R/A; aa9 06:25 BP 160 / 75; Pulse 71; Resp 17 S; Pulse Ox 98% on R/A; aa9 06:40 BP 169 / 77; Pulse 78; Resp 16 S; Temp 97.8(O); Pulse Ox 97% on R/A; aa9 07:40 BP 145 / 74; Pulse 69; Resp 15; Pulse Ox 100% ; jl7 05:49 Body Mass Index 35.78 (97.52 kg, 165.10 cm) aa9 ED Course: 05:39 Patient arrived in ED. bp1 05:40 Tod Valle MD is Attending Physician. bs3 05:41 Marilyn Doss, RN is Primary Nurse. aa9 05:50 Triage completed. aa9 05:52 Arm band placed on. aa9 06:01 Inserted saline lock: 20 gauge in right antecubital area, using aseptic technique. aa9 Blood collected. 06:03 Patient has correct armband on for positive identification. Placed in gown. Bed in low mm9 position. Call light in reach. Side rails up X 1. Warm blanket given. Pulse ox on. NIBP on. 06:04 EKG done, by ED staff, reviewed by Tod Valle MD. mm9 06:14 CBC with Diff Sent. aa9 06:14 CMP Sent. aa9 06:14 Lipase Sent. aa9 06:17 No provider procedures requiring assistance completed. aa9 06:22 CBC with Diff Sent. aa9 06:22 CMP Sent. aa9 06:22 Lipase Sent. aa9 06:56 Attending Physician role handed off by Tod Valle MD kdr 06:56 Evert Buitrago MD is Attending Physician. kdr 06:59 CT Abd/Pelvis - IV Contrast Only In Process Unspecified. EDMS 07:40 IV discontinued, intact, bleeding controlled, No redness/swelling at site. Pressure jl7 dressing applied. Administered Medications: 06:15 Drug: Pepcid (famotidine) 20 mg Route: IVP; Site: right antecubital; aa9 06:24 Follow up: Response: No adverse reaction aa9 06:15 Drug: Zofran (Ondansetron) 4 mg Route: IVP; Site: right antecubital; aa9 06:24 Follow up: Response: No adverse reaction aa9 06:16 Drug: NS 0.9% 1000 ml Route: IV; Rate: 1 bolus; Site: right antecubital; aa9 07:20 Follow up: Response: No adverse reaction; IV Status: Completed infusion; IV Intake: jl7 1000ml 06:24 Drug: Maalox (aluminum hydroxide, magnesium hydroxide, simethicone) Suspension (200 aa9 mg-200 mg-20 mg/5 mL) 30 ml Route: PO; 06:41 Follow up: Response: No adverse reaction aa9 Medication: 06:17 VIS not applicable for this client. aa9 Intake: 07:20 IV: 1000ml; Total: 1000ml. jl7 Outcome: 07:30 Discharge ordered by . kdr 07:40 Discharged to home ambulatory. jl7 07:40 Condition: stable 07:40 Discharge instructions given to patient, Instructed on discharge instructions, follow up and referral plans. medication usage, Demonstrated understanding of instructions, follow-up care, medications, Prescriptions given X 2. 07:42 Patient left the ED. jl7 Signatures: Dispatcher [employer] EDMS Evert Buitrago MD MD kdr Tien Correia RN RN jl7 Randa Lechuga Aylin, RN RN aa9 Tod Valle MD MD bs3 Dodie Shelton mm9 Corrections: (The following items were deleted from the chart) 06:15 06:14 Zofran (Ondansetron) 4 mg IVP in left antecubital aa9 aa9 06:15 06:14 Pepcid (famotidine) 20 mg IVP in left antecubital aa9 aa9 06:15 06:14 NS 0.9% 1000 ml IV at 1 bolus in left antecubital aa9 aa9 06:46 06:40 BP 169 / 77; Pulse 78bpm; Resp 16bpm; Spontaneous; Pulse Ox 97% RA; aa9 aa9
--- NOTE | 2022-06-22 07:31 | EDPHYS ---
Physician Documentation [facility] Name: Maria G Ndiaye Age: 51 yrs Sex: Female : 1970 Arrival Date: 06/22/2022 Time: 05:39 Bed 18 Private MD: ED Physician Evert Buitrago HPI: 06/22 05:49 This 51 yrs old Female presents to ER via Unassigned with complaints of bs3 Abdominal Pain. 05:49 Onset: The symptoms/episode began/occurred acutely, just prior to arrival. The symptoms bs3 do not radiate. Associated signs and symptoms: none. The symptoms are described as sharp. 51yo hx of constipation, diverticultiis, cholecystectomy, tubal ligation, depression pw luq pain, sharp in nature, non radiating for 30 minutes, never had it before, feels like fullness in her abdomen, +flatus, no associated cp, sob, nausea, vomiting, not ripping or tearing, didn't take anything for it. No aggrevating or alleviated factors, moderate in intensity. . 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 - Social history:: Smoking status: Patient denies any tobacco usage or history of. ROS: 05:50 Constitutional: Negative for fever, chills Eyes: Negative for injury, pain, redness, bs3 and discharge. 05:50 All other systems are negative. Exam: 05:50 Constitutional: This is a well developed, well nourished patient who is awake, alert, bs3 and in no acute distress. Head/Face: Normocephalic, atraumatic. Eyes: Pupils equal round and reactive to light, extra-ocular motions intact. Lids and lashes normal. ENT: mmm, no posterior phyarngeal erythema Neck: Trachea midline, no thyromegaly, no neck stiffness Chest/axilla: Normal chest wall appearance and motion. Nontender with no deformity. No lesions are appreciated. Cardiovascular: Regular rate and rhythm with a normal S1 and S2. symmetric pulses in upper extremities Respiratory: Lungs have equal breath sounds bilaterally, clear to auscultation, no respiratory distress Abdomen/GI: soft, non distended, pt points to luq, no peritoneal signs, no guarding Back: No spinal tenderness. No costovertebral tenderness. Full range of motion. Skin: Warm, dry with normal turgor. Normal color with no rashes, no lesions, and no evidence of cellulitis. MS/ Extremity: Pulses equal, no cyanosis. Neurovascular intact. Full, normal range of motion. equal symmetric pulses in b/l upper extremities. Neuro: Awake and alert, GCS 15, oriented to person, place, time, and situation. Cranial nerves II-XII grossly intact. Motor strength 5/5 in all extremities. Sensory grossly intact. Psych: Awake, alert, with orientation to person, place and time. Behavior, mood, and affect are within normal limits. Vital Signs: 05:49 BP 158 / 69; Pulse 70; Resp 18 S; Pulse Ox 97% on R/A; Weight 97.52 kg (R); Height 5 aa9 ft. 5 in. (165.10 cm) (R); Pain 3/10; 06:15 BP 155 / 66; Pulse 72; Resp 18 S; Pulse Ox 97% on R/A; aa9 06:25 BP 160 / 75; Pulse 71; Resp 17 S; Pulse Ox 98% on R/A; aa9 06:40 BP 169 / 77; Pulse 78; Resp 16 S; Temp 97.8(O); Pulse Ox 97% on R/A; aa9 07:40 BP 145 / 74; Pulse 69; Resp 15; Pulse Ox 100% ; jl7 05:49 Body Mass Index 35.78 (97.52 kg, 165.10 cm) aa9 MDM: 05:40 Patient medically screened. bs3 05:52 Data reviewed: vital signs, nurses notes, old medical records. ED course: 51yo f hx of bs3 htn pw LUQ pain for 30min, will eval for sbo, perforation, atypical diverticulitis, pancreatitis, screen for acs with ecg, will tx with gi cocktail, possible pud, gastritis, doubt dissection given pain description, normal symmetric pulses. Will do serial exams. . 06:03 ED course: eccg nsr [address] elevation or depression qtc 438 incomplete rbbb. bs3 06:42 ED course: pt reassessed, feeling better, labs notable for no leukocytosis, normal bs3 lft/lipase, signed out pending reassessment and CT. 06:44 ED course: ua +blood, small leuk, doubt uti, will see large stone with CT with IV bs3 contrast. 07:32 ED course: Patient continues to be pain-free in the ED. I discussed all laboratory kdr results and CT results with her and explained the information provided in that data. We noted that she had some suspicion of possible urinary tract infection with the urine however, she was pain-free and without any symptoms of urinary tract infection. I discussed with her the fact that often times this is a result of skin contamination. Further she should have her urine rechecked in about a week with her primary care physician. We discussed also the need for gastroenterology follow-up. She was given the name of local providers. She was stable and totally comfortable at the time of discharge and was happy with the care provided the plan for discharge and follow-up. 06/22 05:48 Order name: CBC with Diff; Complete Time: 06:33 bs3 06/22 05:48 Order name: CMP; Complete Time: 06:40 bs3 06/22 05:48 Order name: Lipase; Complete Time: 06:40 bs3 06/22 05:48 Order name: CT Abd/Pelvis - IV Contrast Only; Complete Time: 07:21 bs3 06/22 06:03 Order name: Urine Dipstick-Ancillary; Complete Time: 06:22 EDMS 06/22 06:44 Interpretation: UBLD 2+; abnormal blood, leuk. bs3 06/22 05:48 Order name: IV Saline Lock; Complete Time: 06:14 bs3 06/22 05:48 Order name: Labs collected and sent; Complete Time: 06:14 bs3 06/22 05:48 Order name: Urine Dipstick-Ancillary (obtain specimen); Complete Time: 06:01 bs3 06/22 05:48 Order name: EKG - Nurse/Tech; Complete Time: 05:48 bs3 Administered Medications: 06:15 Drug: Pepcid (famotidine) 20 mg Route: IVP; Site: right antecubital; aa9 06:24 Follow up: Response: No adverse reaction aa9 06:15 Drug: Zofran (Ondansetron) 4 mg Route: IVP; Site: right antecubital; aa9 06:24 Follow up: Response: No adverse reaction aa9 06:16 Drug: NS 0.9% 1000 ml Route: IV; Rate: 1 bolus; Site: right antecubital; aa9 07:20 Follow up: Response: No adverse reaction; IV Status: Completed infusion; IV Intake: jl7 1000ml 06:24 Drug: Maalox (aluminum hydroxide, magnesium hydroxide, simethicone) Suspension (200 aa9 mg-200 mg-20 mg/5 mL) 30 ml Route: PO; 06:41 Follow up: Response: No adverse reaction aa9 Disposition Summary: 06/22/22 07:30 Discharge Ordered Location: Home kdr Problem: new kdr Symptoms: are resolved kdr Condition: Stable kdr Diagnosis - Upper abdominal pain, unspecified kdr Followup: bs3 - With: Private Physician - When: 2 - 3 days - Reason: Re-evaluation by your physician Discharge Instructions: - Discharge Summary Sheet bs3 - Abdominal Pain, Adult, [id number] bs3 Forms: - Medication Reconciliation Form kdr - Thank You Letter kdr - Work release form [email or web address] Prescriptions: - Ibuprofen 600 mg Oral Tablet - take 1 tablet by ORAL route every 6 hours As needed take with food; 12 tablet; kdr Refills: 0, Product Selection Permitted - Pepcid 20 mg Oral Tablet - take 1 tablet by ORAL route once daily for 10 days; 10 tablet; Refills: 0, kdr Product Selection Permitted Signatures: Dispatcher [employer] Evert Anand MD MD kdr Marilyn Doss, RN RN aa9 Tod Valle MD MD bs3 Tien Correia RN jl7
[2022-06-22 08:11] VITALS: TEMP 97.8
[2022-06-22 08:12] VITALS: BP 145/74; O2SAT 100
--- NOTE | 2022-06-24 16:04 | EKG ---
Test Date: 2022-06-22 Test Time: 06:01:11 Carroter: SHAKA MEASUREMENT RESULTS: Intervals: Rate: 70 SC: 146 QRSD: 118 QT: 406 QTc: 438 [place]: P: 49 SC: 146 QRS: 53 T: 42 INTERPRETIVE STATEMENTS: Normal sinus rhythm Incomplete right bundle branch block Borderline ECG Compared to ECG 03/20/2020 03:47:57 Incomplete right bundle-branch block now present T-wave abnormality no longer present Electronically Signed On 06-24-22 15:59:14 CDT by Samuel Trujillo
== END 2022-06-22 07:42 | disposition home or self-care (01) ==
LOC: ER 05:35
DX: R10.12 Left upper quadrant pain (principal)
CPT/HCPCS: 36415; 74177; 80053; 81003; 83690; 85025; 93005; 96361; 96374; 96375; 99284; J2405; J7030; Q9967

== ENCOUNTER 2023-03-20 16:12 | Emergency (ER) | payer OTHER, SELFPAY ==
--- OUTSIDE RECORDS SUMMARY | 2023-03-20 16:14 | XMS REPORT | Continuity of Care Document ---
:1970 Author Organization [facility] t Address [address] [place] [address] [address] [place] [address] Care Team Providers Name Role Phone Unavailable Unavailable Unavailable Payers Payer Name Policy Type Policy Number Effective Date Expiration Date S ource SELF-PAY CI [id number] Problems This patient has no known problems. Allergies, Adverse Reactions, Alerts This patient has no known allergies or adverse reactions. Medications This patient has no known medications. Procedures This patient has no known procedures. Encounters Start End Encounter Admission Attending Care Care Encounter Source Date/Time Date/Time Type Type Clinicians Facility Department ID 2021-09-25 Outpatient IBNS IBNS [id number] Pancho 12:28:10 [id number] Andrew 2021-09-25 Outpatient IBNS IBNS [id number]- [facility]ancho 12:21:21 [id number] Andrew Results This patient has no known results.
[2023-03-20 17:26] LABS: Absolute Lymphocytes (CBC) 2.3 K/uL (0.7-4.9); Hematocrit 37.7 % (36.0-45.0); Lymphocytes % 25.5 % (15.3-44.8); MCV 85.8 fL (80-100); MPV 8.6 fL (7.6-11.3); RBC Red Blood Cell Count 4.39 M/uL (3.86-4.86); Specific Gravity 1.008 (1.005-1.030)
[2023-03-20 17:28] LABS: Specific Gravity 1.008 (1.005-1.030); Urine Bacteria None Seen /HPF (<20); Urine Bilirubin NEGATIVE (Negative); Urine Blood 1+ (Negative); Urine Clarity Turbid (Clear); Urine Color Light-Yellow (Yellow); Urine Glucose NEGATIVE (Negative); Urine Mucus 1+ /HPF (None Seen); Urine Protein NEGATIVE (Negative); Urine Urobilinogen Normal (Normal); Urine pH 5.5 (5.0-7.0)
[2023-03-20] MEDS ORDERED: NA CHLORIDE 0.9% 1,000 ML ONE (17:40)
[2023-03-20 17:45] LABS: Albumin 3.7 g/dL (3.4-5.0); Bilirubin Total 0.4 mg/dL (0.2-1.0); Protein, Total 8.4 g/dL (6.4-8.2); Troponin High Sensitivity 6.9 pg/mL (<58.9)
--- NOTE | 2023-03-20 17:52 | RAD REPORT ---
EXAM DESCRIPTION: CTAbdomen Pelvis W Contrast - 03/20/2023 5:28 pm CLINICAL HISTORY: ABD PAIN COMPARISON: Abdomen Pelvis W Contrast dated 06/22/2022; Abdomen Pelvis W Contrast dated 03/31/2021 ; Abdomen Pelvis W Contrast dated 06/15/2017; Abdomen Pelvis W Contrast dated 05/11/2017 TECHNIQUE: CT of the abdomen and pelvis was performed with IV contrast. All CT scans are performed using dose optimization technique as appropriate and may include automated exposure control or mA/KV adjustment according to patient size. FINDINGS: Lower chest: No acute abnormality. Liver: No acute abnormality or suspicious lesions. Biliary: No biliary ductal dilatation. Cholecystectomy. Stomach: No significant focal abnormality. Duodenum: No significant focal abnormality. Pancreas: No significant abnormality. Spleen: No significant abnormality. Adrenal: No suspicious lesions. Kidney/ureter: No hydronephrosis. No renal calculi. Too small to characterize and/or benign appearing renal lesions are noted. Retroperitoneum: No retroperitoneal adenopathy. Vascular: No aneurysm. Bowel: Diverticulosis without diverticulitis. Normal appendix . Peritoneum: No ascites or free air. Bladder: Grossly unremarkable. Reproductive: No adnexal masses. Bones: No acute fracture. Other: n/a IMPRESSION: No acute intra-abdominal or pelvic finding.
--- NOTE | 2023-03-20 18:08 | ER ---
Nurse's Notes [facility] Name: Maria G Ndiaye Age: 52 yrs Sex: Female : 1970 Arrival Date: 03/20/2023 Time: 16:12 Bed 8 Private MD: Diagnosis: Abdominal pain, melena Presentation: 03/20 16:17 Chief complaint: Patient states: upper abd pain, nausea, and constipation x 4 days ago. aa5 Coronavirus screen: nausea. Ebola Screen: Patient denies travel to an Ebola-affected area in the 21 days before illness onset. Initial Sepsis Screen: Does the patient meet any 2 criteria? HR > 90 bpm. Does the patient have a suspected source of infection? No. Patient's initial sepsis screen is negative. Risk Assessment: Do you want to hurt yourself or someone else? Patient reports no desire to harm self or others. Onset of symptoms was February 2023. 16:17 Method Of Arrival: Ambulatory aa5 16:17 Acuity: CECILIA 3 aa5 Triage Assessment: 17:36 General: Appears in no apparent distress. comfortable, Behavior is calm, cooperative. 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 - Social history:: Smoking status: Patient denies any tobacco usage or history of. Screenin:29 [facility] ED Fall Risk Assessment (Adult) History of falling in the last 3 months, cm10 including since admission No falls in past 3 months (0 pts) Confusion or Disorientation No (0 pts) Intoxicated or Sedated No (0 pts) Impaired Gait No (0 pts) Mobility Assist Device Used No (0 pt) Altered Elimination No (0 pt) Score/Fall Risk Level 0 - 2 = Low Risk Oriented to surroundings, Maintained a safe environment, Hourly rounding (assess needs \T\ fall precautionary measures) done. Abuse screen: Denies threats or abuse. Denies injuries from another. Nutritional screening: No deficits noted. Tuberculosis screening: No symptoms or risk factors identified. Assessment: 17:16 Pain: Complains of pain in epigastric area Pain radiates to back Pain currently is 8 cm10 out of 10 on a pain scale. Quality of pain is described as dull, Also complains of constipation, nausea. Neuro: No deficits noted. Level of Consciousness is awake, alert, obeys commands, Oriented to person, place, time, situation. Respiratory: No deficits noted. Airway is patent Respiratory effort is even, unlabored, Respiratory pattern is regular, symmetrical. GI: Bowel sounds Abd is soft and non tender X 4 quads. Vital Signs: 16:17 BP 171 / 84; Pulse 99; Resp 18 S; Temp 97.3(TE); Pulse Ox 98% on R/A; Weight 95.25 kg aa5 (R); Height 5 ft. 4 in. (R); 17:30 BP 158 / 82; Pulse 92; Resp 16; Pulse Ox 98% ; cm10 18:00 BP 153 / 74; Pulse 92; Resp 18; Pulse Ox 99% on R/A; cm10 18:00 BP 165 / 78; Pulse 95; Resp 18; Pulse Ox 99% on R/A; cm10 16:17 Body Mass Index 36.05 (95.25 kg, 162.56 cm) aa5 ED Course: 16:13 Patient arrived in ED. am2 16:16 Aleksandar Dobson MD is Attending Physician. sp3 16:17 Arm band placed on. aa5 16:18 Triage completed. aa5 16:22 Anat Shelton, RN is Primary Nurse. cm10 16:30 Radiology exam delayed due to IV insertion attempt and/or patient not having nj appropriate IV at this time. 16:30 Radiology exam delayed due to lab results not completed at this time. (BUN/Creatinine). nj 16:30 Radiology exam delayed due to Patient in the lobby at this time. nj 16:50 Radiology exam delayed due to lab results not completed at this time. IV insertion jj2 attempt and/or patient not having appropriate IV at this time. 17:13 CBC with Diff Sent. cm10 17:13 CMP Sent. cm10 17:13 Initial lab(s) drawn, by ky, sent to lab. Inserted saline lock: 20 gauge in right cm10 antecubital area, using aseptic technique. Blood collected. 17:13 Inserted Inserted by Anat Shelton RN. cm10 17:14 Lipase Sent. cm10 17:14 Test, Urine Sent. cm10 17:14 Urinalysis w/ reflexes Sent. cm10 17:14 Troponin High Sensitivity Sent. cm10 17:29 Patient has correct armband on for positive identification. Placed in gown. Bed in low cm10 position. Call light in reach. Side rails up X2. Provided Education on: N/A. Pulse ox on. NIBP on. Door closed. Noise minimized. Warm blanket given. 17:30 CT Abd/Pelvis - IV Contrast Only In Process Unspecified. EDMS 18:08 Radha Floyd MD is Referral Physician. sp3 18:52 No provider procedures requiring assistance completed. IV discontinued, intact, cm10 bleeding controlled, No redness/swelling at site. Pressure dressing applied. Administered Medications: 17:35 Drug: NS 0.9% IV 1000 ml Route: IV; Rate: 1 bolus; Site: right antecubital; cm10 18:53 Follow up: Response: No adverse reaction; IV Status: Completed infusion; IV Intake: cm10 500ml Medication: 17:29 VIS not applicable for this client. cm10 Intake: 18:53 IV: 500ml; Total: 500ml. cm10 Outcome: 18:08 Discharge ordered by . sp3 18:53 Discharged to home ambulatory. cm10 18:53 Condition: good 18:53 Discharge instructions given to patient, Instructed on discharge instructions, follow up and referral plans. Demonstrated understanding of instructions, follow-up care. 18:53 Patient left the ED. cm10 Signatures: Dispatcher [employer] EDMA Dorian Fuchs jj2 Desirae Esparza, RN RN aa5 Maciej Koroma Amanda am2 Aleksandar Dobson MD MD sp3 Anat Shelton RN RN cm10 Corrections: (The following items were deleted from the chart) 16:19 16:18 Allergies: KNDA; aa5 aa5 16:19 16:18 Allergies: NKDA; aa5 aa5 16:43 16:42 Radiology exam delayed due to lab results not completed at this time. nj (BUN/Creatinine) in 16:43 16:43 Radiology exam delayed due to IV insertion attempt and/or patient not having nj appropriate IV at this time. nj 17:29 17:13 Initial lab(s) drawn, by me, sent to lab. cm10 cm10
--- NOTE | 2023-03-20 18:09 | EDPHYS ---
Physician Documentation [facility] Name: Maria G Ndiaye Age: 52 yrs Sex: Female : 1970 Arrival Date: 03/20/2023 Time: 16:12 Bed 8 Private MD: ED Physician Aleksandar Dobson HPI: 03/20 16:28 This 52 yrs old Female presents to ER via Ambulatory with complaints of sp3 Abdominal Pain, Nausea, General Weakness, Constipation. 16:28 52-year-old female with history of anemia, prior diverticulitis, status sp3 postcholecystectomy presents to the ED with epigastric pain x2 days extending into the back. Patient had similar symptoms in June for which she had a CT scan of the abdomen pelvis and full lab work which was normal. She has not seen a GI specialist for any endoscopy or colonoscopy in the past. She presents today with the epigastric pain along with generalized weakness. She states that her stools have been "dark". She denies any headache, syncope, chest pain, upper back pain, vomiting or diarrhea, rash, bleeding at any site, travel history, poor food intake, known sick contacts, or any other signs or symptoms on ROS at this time.. 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 - Social history:: Smoking status: Patient denies any tobacco usage or history of. ROS: 16:29 Constitutional: Negative for fever, chills, and weight loss, Eyes: Negative for injury, sp3 pain, redness, and discharge, ENT: Negative for injury, pain, and discharge, Neck: Negative for injury, pain, and swelling, Cardiovascular: Negative for chest pain, palpitations, and edema, Respiratory: Negative for shortness of breath, cough, wheezing, and pleuritic chest pain, Back: Negative for injury and pain, MS/Extremity: Negative for injury and deformity, Skin: Negative for injury, rash, and discoloration, Neuro: Negative for headache, weakness, numbness, tingling, and seizure, Psych: Negative for depression, anxiety, suicide ideation, homicidal ideation, and hallucinations, Allergy/Immunology: Negative for hives, rash, and allergies, Endocrine: Negative for neck swelling, polydipsia, polyuria, polyphagia, and marked weight changes. 16:29 All other systems are negative. Exam: 16:30 Constitutional: This is a well developed, well nourished patient who is awake, alert, sp3 and in no acute distress. Head/Face: Normocephalic, atraumatic. Eyes: Pupils equal round and reactive to light, extra-ocular motions intact. Lids and lashes normal. Conjunctiva and sclera are non-icteric and not injected. Cornea within normal limits. Periorbital areas with no swelling, redness, or edema. Neck: Trachea midline, no thyromegaly or masses palpated, and no cervical lymphadenopathy. Supple, full range of motion without nuchal rigidity, or vertebral point tenderness. No Meningismus. Chest/axilla: Normal chest wall appearance and motion. Nontender with no deformity. No lesions are appreciated. Cardiovascular: Regular rate and rhythm with a normal S1 and S2. No gallops, murmurs, or rubs. Normal PMI, no JVD. No pulse deficits. Respiratory: Lungs have equal breath sounds bilaterally, clear to auscultation and percussion. No rales, rhonchi or wheezes noted. No increased work of breathing, no retractions or nasal flaring. Back: No spinal tenderness. No costovertebral tenderness. Full range of motion. Skin: Warm, dry with normal turgor. Normal color with no rashes, no lesions, and no evidence of cellulitis. MS/ Extremity: Pulses equal, no cyanosis. Neurovascular intact. Full, normal range of motion. Neuro: Awake and alert, GCS 15, oriented to person, place, time, and situation. Cranial nerves II-XII grossly intact. Motor strength 5/5 in all extremities. Sensory grossly intact. Cerebellar exam normal. Normal gait. 16:30 Abdomen/GI: Patient with epigastric pain to palpation mild in nature. There are no peritoneal signs, rebound or guarding. Surgical abdomen is absent.. 18:09 ECG was reviewed by the Attending Physician. EKG demonstrates normal sinus rhythm at 94 sp3 bpm with normal intervals, normal QRS, normal axis, nonspecific diffuse ST/T-segment's without evidence of acute ischemia. Vital Signs: 16:17 BP 171 / 84; Pulse 99; Resp 18 S; Temp 97.3(TE); Pulse Ox 98% on R/A; Weight 95.25 kg aa5 (R); Height 5 ft. 4 in. (R); 17:30 BP 158 / 82; Pulse 92; Resp 16; Pulse Ox 98% ; cm10 18:00 BP 153 / 74; Pulse 92; Resp 18; Pulse Ox 99% on R/A; cm10 18:00 BP 165 / 78; Pulse 95; Resp 18; Pulse Ox 99% on R/A; cm10 16:17 Body Mass Index 36.05 (95.25 kg, 162.56 cm) aa5 MDM: 16:27 Patient medically screened. sp3 16:30 Data reviewed: vital signs, nurses notes, old medical records, lab test result(s), EKG, sp3 radiologic studies. ED course: 52-year-old female with epigastric pain. Differential diagnosis includes gastritis, peptic ulcer disease, pancreatitis, constipation, functional abdominal pain, among others. Clinically I am not highly suspicious for vascular pathology including aortic dissection or aneurysm, COMPLEX COMMERCIAL LITIGATION PARALEGAL pathology, pathology including kidney stone, UTI or pyelonephritis. Will assess patient with laboratory values, urine analysis, CT scan of the abdomen and pelvis and general observation.. 18:07 ED course: Laboratory values all within normal limits including CBC. CT scan sp3 demonstrates no significant findings. We will safely discharge patient home with GI follow-up.. 03/20 16:28 Order name: CBC with Diff; Complete Time: 18:07 3 03/20 16:28 Order name: CMP; Complete Time: 18:07 sp3 03/20 16:28 Order name: Lipase; Complete Time: 18:07 sp3 03/20 16:28 Order name: Test, Urine; Complete Time: 18:07 sp3 03/20 16:28 Order name: Urinalysis w/ reflexes; Complete Time: 18:07 sp3 03/20 16:28 Order name: Troponin High Sensitivity; Complete Time: 18:07 sp3 03/20 16:28 Order name: CT Abd/Pelvis - IV Contrast Only; Complete Time: 18:07 sp3 03/20 16:28 Order name: EKG; Complete Time: 16:28 sp3 03/20 16:28 Order name: IV Saline Lock; Complete Time: 17:14 sp3 03/20 16:28 Order name: Labs collected and sent; Complete Time: 17:14 sp3 03/20 16:28 Order name: EKG - Nurse/Tech; Complete Time: 17:53 sp3 Administered Medications: 17:35 Drug: NS 0.9% IV 1000 ml Route: IV; Rate: 1 bolus; Site: right antecubital; cm10 18:53 Follow up: Response: No adverse reaction; IV Status: Completed infusion; IV Intake: cm10 500ml Disposition Summary: 03/20/23 18:08 Discharge Ordered Location: Home sp3 Condition: Stable sp3 Diagnosis - Abdominal pain, melena sp3 Followup: sp3 - With: Radha Floyd MD - When: Upon discharge from the Emergency Department - Reason: Recheck today's complaints Discharge Instructions: - Discharge Summary Sheet sp3 - Abdominal Pain, Adult sp3 Forms: - Medication Reconciliation Form sp3 - Thank You Letter sp3 - Antibiotic Education sp3 - Prescription Opioid Use sp3 - Patient Portal Instructions sp3 Signatures: Dispatcher [employer] EDMS Desirae Esparza RN RN aa5 Aleksandar Dobson MD MD sp3 Anat Shelton RN RN cm10 Corrections: (The following items were deleted from the chart) 16:19 16:18 Allergies: KNDA; aa5 aa5 16:19 16:18 Allergies: NKDA; aa5 aa5
[2023-03-20 19:16] VITALS: BP 165/78; TEMP 97.3; O2SAT 99
--- NOTE | 2023-03-21 13:25 | EKG ---
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
== END 2023-03-20 18:53 | disposition home or self-care (01) ==
LOC: ER 16:12
DX: R10.13 Epigastric pain (principal); K92.1 Melena; I10 Essential (primary) hypertension; Z88.1 Allergy status to other antibiotic agents
CPT/HCPCS: 93005; 85025; 81001; 36415; 81025; 82565; 84484; 83690; 80053; 74177; 96360; 99284; Q9967; J7030

== ENCOUNTER → 2023-09-29 | Emergency (ER) | payer OTHER ==
[~2023-09-29] MED LIST: DIAZEPAM 5 MG TABLET ONE; HYDROCODONE/APAP 5/325 MG TAB ONE
--- OUTSIDE RECORDS SUMMARY | 2023-09-29 14:24 | XMS REPORT | Continuity of Care Document ---
Author Name Unknown Address [address] [place] [address] [facility] Address [address] [place] [address] Care Team Providers Care Otolaryngology Teacher Name Role Phone PCP, PATIENT DOES NOT HAVE A Primary Care Physic paul Unavailable Hardy Cross NP Attending Clinician [phone] Nicolasa Kay MD Attending Clinician [phone] NICOLASA KAY Attending Clinician Unavailable HARDY CROSS Admitting Clinician Unavailab le Payers Payer Name Policy Type Policy Number Effective Date Expirati on Date Source SELF-PAY CI [id number] Allergies, Adverse Reactions, Alerts Allergy Name Allergy Type Status Severity Reaction(s) Onset Date Inactive Date Treating Clinician Comments Source Cephalex in Propensi ty to adverse reaction s Active Other - See comments 05-12 00:00: 00 Patients states "I feel crazy in the head" [facility] CEPHALEX IN DRUG INGREDI Active Other-Cmnt 05-12 00:00: 00 [facility] NO KNOWN ALLERGIE S Drug Class Active [facility] Social History Social Habit Start Date Stop Date Quantity Comments Source Gender identity [facility] Sex Assigned At 1970 00:00:00 1970 00:00:00 [facility] Smoking Status Start Date Stop Date Source Tobacco smoking consumption unknown [facility] Medications Ordered Medication Name Filled Medication Name Start Date Stop Date Current Medication? Ordering Clinician Indication Dosage Frequency Signature (SIG) Comments Components Source iopamidol (ISOVUE 370-500 mL) injection 80 mL 05-12 09:30: 00 05-12 09:30 :00 No [id number] 80mL 80 mL, Intravenou s, ONCE, 1 dose, On Fri05/12/23 at 0430, Routine [facility] NaCl 0.9% (NS) bolus infusion 1,000 mL 05-12 08:30: 00 05-12 09:48 :00 No 1000mL at 999 mL/hr, 1,000 mL, IV Infusion, ONCE, 1 dose, On Fri05/12/23 at 0330, ARNULFO [facility] Vital Signs Vital Name Observation Time Observation Value Comments S ource Systolic blood pressure 2023-05-12 09:40:00 165 mm[Hg] [facility] Diastolic blood pressure 2023-05-12 09:40:00 90 mm[Hg] [facility] Heart rate 2023-05-12 09:40:00 74 /min [facility] Oxygen saturation in Arterial blood by Pulse oximetry 2023-05-12 09:40:00 98 /min [facility] Respiratory rate 2023-05-12 09:00:00 17 /min [facility] Body temperature 2023-05-12 05:46:[address] [facility] Body height 2023-05-12 05:46:00 162.6 cm [facility] Body weight 2023-05-12 05:46:00 95.255 kg [facility] BMI 2023-05-12 05:46:00 36.05 kg/m2 [facility] Procedures Procedure Date / Time Performed Performing Clinicia n Source URINALYSIS 2023-05-12 08:20:00 Hardy Cross Un [facility] EKG-12 LEAD 2023-05-12 07:45:18 Hardy Cross Un [facility] TROPONIN I 2023-05-12 06:01:00 Hardy Cross Un [facility] COMP. METABOLIC PANEL ([id number]) 2023-05-12 06:01:[address] [facility] CBC WITH DIFF 2023-05-12 06:01:00 [facility] D-DIMER 2023-05-12 06:01:00 Hardy Cross [facility] N-TERMINAL PRO-BNP 2023-05-12 06:01:[address] [facility] COVID-19 (ID NOW RAPID TESTING) 2023-05-12 06:01:[address] [facility] NOTICE OF PRIVACY PRACTICES 2023-05-12 05:39:31 Doctor Unassigned, [place] [facility] CONSENT/REFUSAL FOR DIAGNOSIS AND TREATMENT 2023-05-12 05:38:30 Doctor Unassigned, [place] [facility] Encounters Start Date/Time End Date/Time Encounter Type Admission Type Attending Clinicians Care Facility Care Department Encounter ID Source 2021-09-25 12:28:10 Outpatient IBNS IBNS [id number] - [id number] Pancho Andrew 2021-09-25 12:21:21 Outpatient IBNS IBNS [id number] - [id number] Pancho Andrew 2023-05-12 00:48:00 2023-05-12 04:50:00 Emergency Hardy Cross [place] [facility] [id number] [facility] 2023-05-12 00:48:00 2023-05-12 04:50:00 Emergency X NICOLASA KAY [facility] ERT [id number] [facility] Results Test Description Test Time Test Comments Results Result Co mments Source [facility] [id number] 07:32:05* Test Item Value Reference Range Interpretation Comme nts NT-proBNP (test code = 00474-5) <=125 Lab Interpretation (test cod e = 38380-8) Normal [facility] [id number] 07:26:54* Test Item Value Reference Range Interpretation Comme nts WBC (test code = 6690-2) 10.83 See_Comment [Automated messa ge] The system which generated this result transmitted reference range: 4.30 - 11.10 10*3/?L. The reference range was not used to interpret this result as normal/abnormal. RBC (test code = 789-8) 4.11 See_Comment [Automated messa ge] The system which generated this result transmitted reference range: 3.93 - 5.25 10*6/?L. The reference range was not used to interpret this result as normal/abnormal. HGB (test code = 718-7) 12.1 g/dL 11.6-15.0 HCT (test code = 4544-3) 36.8 % 35.7-45.2 MCV (test code = 787-2) 89.5 fL 80.6-95.5 MCH (test code = 785-6) 29.4 pg 25.9-32.8 MCHC (test code = 786-4) 32.9 g/dL 31.6-35.1 RDW-SD (test code = 19905-2) 43.3 fL 39.0-49.9 RDW-CV (test code = 788-0) 13.3 % 12.0-15.5 PLT (test code = 777-3) 420 See_Comment H [Automated messa ge] The system which generated this result transmitted reference range: 166 - 358 10*3/?L. The reference range was not used to interpret this result as normal/abnormal. MPV (test code = 35765-6) 11.2 fL 9.5-12.9 NRBC/100 WBC (test code = 8000414082) 0.0 See_Comment [Automated me ssage] The system which generated this result transmitted reference range: 0.0 - 10.0 /100 WBCs. The reference range was not used to interpret this result as normal/abnormal. NRBC x10^3 (test code = 4622776688) See_Comment [Automated messa ge] The system which generated this result transmitted reference range: 10*3/?L. The reference range was not used to interpret this result as normal/abnormal. GRAN MAT (NEUT) % (test code = 770-8) 45.6 % IMM GRAN % (test code = 0010342769) 0.40 % LYMPH % (test code = 736-9) 43.7 % MONO % (test code = 5905-5) 7.8 % EOS % (test code = 713-8) 1.9 % BASO % (test code = 706-2) 0.6 % GRAN MAT x10^3(ANC) (test code = 1901634318) 4.95 10*3/uL 1.88-7.09 IMM GRAN x10^3 (test code = 9525366991) 0.04 10*3/uL 0.00-0.06 LYMPH x10^3 (test code = 731-0) 4.73 10*3/uL 1.32-3.29 H MONO x10^3 (test code = 742-7) 0.84 10*3/uL 0.33-0.92 EOS x10^3 (test code = 711-2) 0.21 10*3/uL 0.03-0.39 BASO x10^3 (test code = 704-7) 0.06 10*3/uL 0.01-0.07 Lab Interpretation (test code = 47943-4) Abnormal [facility]JER[facility]ITALNICOLA [id number] 07:09:13* Test Item Value Reference Range Interpretation Comme nts TROPONIN I (test code = 7922070767) 0.003 ng/mL <=0.034 TAMELA (test code = TAMELA) Reference (Normal) Range (defined by the 99th percentile reference limit): <= 0.034 ng/mL Note: Cardiac troponin begins to rise 3-4 hours after the onset of ischemia. Repeat in 4-6 hours if the sample was drawn within 3-4 hours of the onset of the symptom and found normal. Diagnosis of myocardial injury is made with acute changes in cTn concentrations with at least one serial sample above the 99th percentile upper reference limit (URL), taken together with the patient's clinical presentation. Biotin has been reported to cause a negative bias, interpret results relative to patient's use of biotin. Lab Interpretation (test code = 25175-2) Normal [facility]. METABOLIC PANEL (36264)2023-05-12 07:09:12* Test Item Value Reference Range Interpretation Comme nts NA (test code = 2342544270) 140 mmol/L 135-145 K (test code = 9017456275) 3.5 mmol/L 3.5-5.0 CL (test code = 2432400947) 106 mmol/L 98-108 CO2 TOTAL (test code = 2377317446) 27 mmol/L 23-31 AGAP (test code = 5052488657) 7 2-16 BUN (test code = 9753585830) 17 mg/dL 7-23 GLUCOSE (test code = 7284020955) 122 mg/dL 70-110 H CREATININE (test code = 6961918054) 0.62 mg/dL 0.50-1.04 TOTAL BILI (test code = 1210815880) 0.2 mg/dL 0.1-1.1 CALCIUM (test code = 9345364334) 9.2 mg/dL 8.6-10.6 T PROTEIN (test code = 6128444446) 7.8 g/dL 6.3-8.2 ALBUMIN (test code = 4568845288) 4.0 g/dL 3.5-5.0 ALK PHOS (test code = 1694620949) 106 U/L 34-122 ALTv (test code = 1742-6) 28 U/L 5-35 AST(SGOT) (test code = 3223765356) 27 U/L 13-40 eGFR (test code = 4421455211) 100.3 mL/min/1.73m2 TAMELA (test code = TAMELA) Association of Glomerular Filtration Rate (GFR) and Staging of Kidney Disease* + --+ --+ ------+| GFR (mL/min/1.73 m2) ?| With Kidney Damage ?| ?Without Kidney Damage+ --------+ --------+ +| ?>90 ?| ?Stage one ?| ? Normal ?+ ---+ ---+ -------+| ?60-89 ?| ?Stage two ?| ? Decreased GFR ? + --+ --+ ------+| ?30-59 ?| ?Stage three ?| ? Stage three ? + --+ --+ ------+| ?15-29 ?| ?Stage four ? | ? Stage four ?+ ---+ ---+ -------+| ?<15 (or dialysis) ? ?| ?Stage five ? | ? Stage five ?+ ---+ ---+ -------+ *Each stage assumes the associated GFR level has been in effect for at least three months. ?Stages 1 to 5, with or without kidney disease, indicate chronic kidney disease. Notes: Determination of stages one and two (with eGFR >59mL/min/1.73 m2) requires estimation of kidney damage for at least three months as defined by structural or functional abnormalities of the kidney, manifested by either:Pathological abnormalities or Markers of kidney damage (including abnormalities in the composition of the blood or urine or abnormalities in imaging tests). Lab Interpretation (test code = 44818-0) Abnormal [facility] Notes Date/Time Note Provider Source 2023-05-12 04:49:07 uMnP6JyMn1Q7g0QgMsWQ HEQ176dRtxFNgEv MhaNhuypJ3xZbSySfyr3yH03BYfNR8973-9 04:49:07 Awake, alert oriented X4, respiratory even and unlabored,skin w/d color appropriate for race, moves all ext well, pt encouraged to follow up with pcp and or return as neededPt given printed and verbal discharge instructions regarding SOB,Thrombocytosis, thrombocytosis, weakness, Elevated d-dimer, Multinodular thyroid , patient verbralized understanding and signature obtained, patient denies any other concerns. Advised to seek medical attention for new/prolonged/worsening of symptoms, No adverse reaction to meds given in ER noted upon dischargePt [facility] 79928-1Suepzhmdu department GzvtCG1615-67-83P60:50:13[facility] department NoteTXT1.2.840.844118.1.13.104.2.7. 2.318077|[id number] for patient [id number] J Hoot RN[id number] 8BKGWDWJDQEYCITYTRSAVCP2261-86-14Q2 4:50:131.2.840.859438.1.72.3.15|1.2 .840.934767.1.13.104.2.7.2.727879_1 [id number] Vianca Roman RN [facility] 2023-05-12 00:45:55 yS0R6nffaJPDd+chUJAX 9DMAYk2oOpPIWZ6 uK2T67ORU59mEmCjQxSmNo0/vB7Cc1720-1 05-12T00:45:55 Patient arrived ambulatory c/o of shortness of breath that comes and goes the past three weeks with generalized weakness. 71717-3Oxcflqmch department Triage emvnCW3477-53-69L53:47:37[facility] Triage noteTXT1.2.840.338280.1.13.104.2.7. 2.124549|[id number] for patient ywjv21642-0Egiewicoj department Note[id number] 5AAKUFJAWVHBFUPWARZSIGA5526-08-22I9 0:47:371.2.840.966649.1.72.3.15|1.2 .840.545300.1.13.104.2.7.2.727879_1 [id number] [facility]
[2023-09-29 15:02] LABS: Hematocrit 36.6 % (36.0-45.0); Lymphocytes % 32.3 % (15.3-44.8); MCV 87.3 fL (80-100); MPV 8.6 fL (7.6-11.3); Platelets 432 thou/uL (152-406); RBC Red Blood Cell Count 4.19 M/uL (3.86-4.86)
[2023-09-29 15:20] LABS: Magnesium 2.2 mg/dL (1.6-2.4); Potassium 3.6 mEq/L (3.5-5.1); Troponin High Sensitivity 4.6 pg/mL (<58.9)
--- NOTE | 2023-09-29 17:25 | RAD REPORT ---
EXAM DESCRIPTION: CT - Angio Aorta For Dissection - 09/29/2023 3:41 pm CLINICAL HISTORY: back pain COMPARISON: Abdomen Pelvis W Contrast dated 03/20/2023 TECHNIQUE: Thin axial CT images of the chest, abdomen, and pelvis were obtained during administratio n of 150mL Isovue 370 IV contrast. Sagittal and coronal reconstructions as well as maximal intensity projection reconstruction were generated and reviewed per an aortic angiography protocol. All CT scans are performed using dose optimization technique as appropriate and may include automated exposure control or mA/KV adjustment according to patient size. FINDINGS: Aorta is normal in diameter with no dissection or other acute aortic findings. Reconstruct ion images show no significant findings. Pulmonary arteries are normal as well. No mass or infiltrate in the lung parenchyma. No pleural thickening, pleural effusion or pneumothorax . No abnormal mediastinal or hilar mass or lymphadenopathy seen. No chest wall mass or abnormal axillar y lymphadenopathy. Celiac, SMA and renal arteries show no suspicious findings. Status post cholecystectomy. Solid abdomi nal viscera and bowel show no significant findings. No mass or abnormal lymphadenopathy. IMPRESSION: No acute abnormalities on CT angiogram of the aorta. No other significant findings on chest, abdomen, and pelvis examination.
--- NOTE | 2023-09-29 17:27 | RAD REPORT ---
EXAM DESCRIPTION: CHARLIChest Single View09/29/2023 2:42 pm CLINICAL HISTORY: back pain COMPARISON: Chest Single View dated 03/20/2020; Chest Single View dated 10/27/2019; Chest Single View d ated 09/16/2017; Chest Single View dated 09/12/2017 TECHNIQUE: Portable AP view of the chest. FINDINGS: The lungs are clear. No pneumothorax or effusion. The cardiomediastinal contours are unre markable. IMPRESSION: No acute cardiopulmonary process.
--- NOTE | 2023-09-29 18:01 | EDPHYS ---
Physician Documentation [facility] Name: Maria G Ndiaye Age: 52 yrs Sex: Female : 1970 Arrival Date: 09/29/2023 Time: 14:22 Bed 15 Private MD: ED Physician Mani Abdi HPI: 09/29 14:32 This 52 yrs old Female presents to ER via Ambulatory with complaints of Back ms3 Pain. 14:32 52-year-old female with past medical history of anemia, depression, diverticulitis, ms3 hypertension presents to the emergency department for back pain that is been ongoing for months that is rated 8/10. Patient states she has applied heating pad without improvement in her symptoms. Patient endorses urinary frequency, denies dysuria. Patient denies any alleviating or inciting factors. 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 - Social history:: Smoking status: Patient denies any tobacco usage or history of. ROS: 14:32 Constitutional: Negative for fever, and chills. ENT: Negative for injury, pain, and ms3 discharge, Neck: Negative for injury, pain, and swelling, Cardiovascular: Negative for chest pain, and palpitations. Respiratory: Negative for shortness of breath, cough, wheezing, and pleuritic chest pain, Abdomen/GI: Negative for abdominal pain, nausea, vomiting, diarrhea, and constipation, MS/Extremity: Negative for injury and deformity, Skin: Negative for injury, rash, and discoloration, 14:32 Back: Positive for pain, Exam: 14:32 Constitutional: This is a well developed, well nourished patient who is awake, alert, ms3 and in no acute distress. Head/Face: Normocephalic, atraumatic. Neck: Trachea midline, no cervical lymphadenopathy. Supple, full range of motion without nuchal rigidity, or vertebral point tenderness. No Meningismus. Chest/axilla: Normal chest wall appearance and motion. Nontender with no deformity. Cardiovascular: Regular rate and rhythm with a normal S1 and S2. No gallops, murmurs, or rubs. Normal PMI, no JVD. No pulse deficits. Respiratory: Lungs have equal breath sounds bilaterally, clear to auscultation and percussion. No rales, rhonchi or wheezes noted. No increased work of breathing, no retractions or nasal flaring. Abdomen/GI: Soft, non-tender, with normal bowel sounds. No distension or tympany. No guarding or rebound. No evidence of tenderness throughout. Skin: Warm, dry with normal turgor. Normal color with no rashes, no lesions, and no evidence of cellulitis. MS/ Extremity: Pulses equal, no cyanosis. Neurovascular intact. Full, normal range of motion. Neuro: Awake and alert, GCS 15, oriented to person, place, time, and situation. Cranial nerves II-XII grossly intact. Motor strength 5/5 in all extremities. Sensory grossly intact. Cerebellar exam normal. Normal gait. 14:32 Back: Tenderness under bilateral scapula, 14:47 ECG was reviewed by the Attending Physician. ms3 Vital Signs: 14:26 BP 161 / 86; Pulse 88; Resp 18; Temp 97.8; Pulse Ox 100% ; ko1 15:00 BP 156 / 76; Pulse 74; Resp 18; Pulse Ox 98% ; cp4 16:00 BP 151 / 77; Pulse 81; Resp 18; Pulse Ox 98% ; cp4 17:00 BP 150 / 86; Pulse 79; Resp 18; Pulse Ox 100% ; cp4 MDM: 14:31 Patient medically screened. ms3 14:32 Differential diagnosis: sprain, vertebral fracture, Thoracic aneurysm. Data reviewed:. ms3 09/29 14:32 Order name: Basic Metabolic Panel; Complete Time: 15:23 ms3 09/29 14:32 Order name: CBC with Diff; Complete Time: 15:23 ms3 09/29 14:32 Order name: Magnesium; Complete Time: 15:23 ms3 09/29 14:32 Order name: Troponin HS; Complete Time: 15:23 ms3 09/29 14:32 Order name: XRAY Chest (1 view); Complete Time: 17:32 ms3 09/29 15:35 Order name: Angio Aorta For Dissection; Complete Time: 17:32 EDMS 09/29 14:32 Order name: EKG; Complete Time: 14:33 ms3 09/29 14:32 Order name: Cardiac monitoring; Complete Time: 14:50 ms3 09/29 14:32 Order name: EKG - Nurse/Tech; Complete Time: 14:50 ms3 09/29 14:32 Order name: IV Saline Lock; Complete Time: 14:50 ms3 09/29 14:32 Order name: Labs collected and sent; Complete Time: 14:50 ms3 09/29 14:32 Order name: O2 Per Protocol; Complete Time: 14:50 ms3 09/29 14:32 Order name: O2 Sat Monitoring; Complete Time: 14:50 ms3 EC:47 Rate is 84 beats/min. Rhythm is regular. QRS [place] is Normal. CO interval is normal. QRS ms3 interval is prolonged. Clinical impression: NSR w/ Non-specific ST/T Changes. Interpreted by me. Reviewed by me. Administered Medications: 17:48 Drug: HYDROcodone-acetaminophen PO 5 mg-325 mg 1 tabs PO once Route: PO; as6 17:48 Drug: Diazepam PO 5 mg PO once Route: PO; as6 Disposition Summary: 09/29/23 18:01 Discharge Ordered Notes: Location: Home ms3 Condition: Stable ms3 Diagnosis - Back pain ms3 Followup: ms3 - With: Toni Dobson DO - When: 2 - 3 days - Reason: Recheck today's complaints Discharge Instructions: - Discharge Summary Sheet ms3 - Acute Back Pain, Adult ms3 Forms: - Medication Reconciliation Form ms3 - Thank You Letter ms3 - Antibiotic Education ms3 - Prescription Opioid Use ms3 - Patient Portal Instructions ms3 - Leadership Thank You Letter ms3 Prescriptions: - Ibuprofen 600 mg Oral Tablet - take 1 tablet ORAL route every 6 hours As needed take with food; 30 tablet; ms3 Refills: 0, Product Selection Permitted - Cyclobenzaprine 10 mg Oral Tablet - take 1 tablet ORAL route every 8 hours As needed; 30 tablet; Refills: 0, ms3 Product Selection Permitted Signatures: Dispatcher [employer] EDMS Mani Abdi DO DO ms3 Preston Vivar RN RN as6 Kianna Caceres RN RN ko1 Corrections: (The following items were deleted from the chart) 15:35 14:33 Chest Angio+CT.RAD.BRZ ordered. EDMS EDMS
--- NOTE | 2023-09-29 18:01 | ER ---
Nurse's Notes [facility] Name: Maria G Ndiaye Age: 52 yrs Sex: Female : 1970 Arrival Date: 09/29/2023 Time: 14:22 Bed 15 Private MD: Diagnosis: Back pain Presentation: 09/29 14:26 Chief complaint: Patient states: back pain down the middle of my back and felt like my ko1 back was going to break, it feels swollen. Has had back pain for months but worse today. Coronavirus screen: At this time, the client does not indicate any symptoms associated with coronavirus-19. Ebola Screen: No symptoms or risks identified at this time. Initial Sepsis Screen: Does the patient meet any 2 criteria? No. Patient's initial sepsis screen is negative. Does the patient have a suspected source of infection? No. Patient's initial sepsis screen is negative. Risk Assessment: Do you want to hurt yourself or someone else? Patient reports no desire to harm self or others. Onset of symptoms is unknown. 14:26 Method Of Arrival: Ambulatory ko1 14:26 Acuity: CECILIA 3 ko1 Triage Assessment: 14:30 General: Appears distressed, uncomfortable, Behavior is calm, cooperative, appropriate ko1 for age. Pain: Complains of pain in left scapular area and left subscapular area. Musculoskeletal: Circulation, motion, and sensation intact. 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 - Social history:: Smoking status: Patient denies any tobacco usage or history of. Screenin:00 [facility] ED Fall Risk Assessment (Adult) History of falling in the last 3 months, cp4 including since admission No falls in past 3 months (0 pts) Confusion or Disorientation No (0 pts) Intoxicated or Sedated No (0 pts) Impaired Gait No (0 pts) Mobility Assist Device Used No (0 pt) Altered Elimination No (0 pt) Score/Fall Risk Level 0 - 2 = Low Risk Oriented to surroundings, Maintained a safe environment, Educated pt \T\ family on fall prevention, incl call for assistance when getting out of bed, Assessed \T\ reinforced patient's understanding of fall precautions, Provided non-skid footwear, Hourly rounding (assess needs \T\ fall precautionary measures) done. Abuse screen: Denies threats or abuse. Nutritional screening: No deficits noted. Tuberculosis screening: No symptoms or risk factors identified. Assessment: 15:13 Neuro: No deficits noted. cp4 15:13 General: Appears in no apparent distress. Behavior is calm, cooperative, appropriate cp4 for age. Vital Signs: 14:26 BP 161 / 86; Pulse 88; Resp 18; Temp 97.8; Pulse Ox 100% ; ko1 15:00 BP 156 / 76; Pulse 74; Resp 18; Pulse Ox 98% ; cp4 16:00 BP 151 / 77; Pulse 81; Resp 18; Pulse Ox 98% ; cp4 17:00 BP 150 / 86; Pulse 79; Resp 18; Pulse Ox 100% ; cp4 ED Course: 14:24 Patient arrived in ED. mr 14:25 Mani Abdi DO is Attending Physician. ms3 14:30 Triage completed. ko1 14:30 Arm band placed on right wrist. Patient placed in an exam room, on a stretcher, on ko1 hospital monitor, on pulse oximetry, Patient notified of wait time. 14:44 XRAY Chest (1 view) In Process Unspecified. EDMS 14:45 Inserted saline lock: 20 gauge in right antecubital area, using aseptic technique. as6 Blood collected. 14:50 Troponin HS Sent. as6 14:51 Magnesium Sent. as6 14:51 CBC with Diff Sent. as6 14:51 Basic Metabolic Panel Sent. as6 15:00 Placed in gown. Bed in low position. Call light in reach. Side rails up X 1. Provided cp4 Education on: back pain. 15:00 No provider procedures requiring assistance completed. cp4 15:08 Dana Dominguez is Primary Nurse. cp4 15:43 Angio Aorta For Dissection In Process Unspecified. EDMS 18:01 Toni Dobson DO is Referral Physician. ms3 18:13 intact, bleeding controlled, No redness/swelling at site. Pressure dressing applied. cp4 Administered Medications: 17:48 Drug: HYDROcodone-acetaminophen PO 5 mg-325 mg 1 tabs PO once Route: PO; as6 17:48 Drug: Diazepam PO 5 mg PO once Route: PO; as6 Medication: 15:00 VIS not applicable for this client. cp4 Outcome: 18:01 Discharge ordered by . ms3 18:13 Discharged to home ambulatory, cp4 18:13 Condition: stable 18:13 Discharge instructions given to patient, Instructed on discharge instructions, follow up and referral plans. medication usage, Demonstrated understanding of instructions, follow-up care, medications, Prescriptions given X 2, 18:17 Patient left the ED. cp4 Signatures: Dispatcher [employer] EDMS Sruthi Kendall, Reg Reg mr Mani Abdi, DO DO ms3 Preston Vivar, RN RN as6 Kianna Caceres, COLETTE RN [email or web address] Dana Dominguez cp4
[2023-09-30 11:17] VITALS: BP 150/86; TEMP 97.8; O2SAT 100
--- NOTE | 2023-09-30 12:57 | EKG ---
Test Date: 2023-09-29 Test Time: 14:42:03 Customs Broker: ANTONIA MEASUREMENT RESULTS: Intervals: Rate: 84 [place]: 138 QRSD: 112 QT: 372 QTc: 439 [place]: P: 29 [place]: 138 QRS: 56 T: 8 INTERPRETIVE STATEMENTS: Normal sinus rhythm Incomplete right bundle branch block Borderline ECG Compared to ECG 03/20/2023 17:48:55 Incomplete right bundle-branch block now present Intraventricular conduction delay no longer present Electronically Signed On 09-30-23 12:52:59 INPATIENT PHARMACIST by Samuel Trujillo
== END ==
LOC: ER 14:22
DX: M54.9 Dorsalgia, unspecified (principal); I10 Essential (primary) hypertension; Z88.1 Allergy status to other antibiotic agents
CPT/HCPCS: 93005; 85025; 80048; 36415; 83735; 84484; 71275; 74175; 71045; Q9967

== ENCOUNTER 2024-06-03 16:11 | Emergency (ER) | payer OTHER ==
--- OUTSIDE RECORDS SUMMARY | 2024-06-03 16:14 | XMS REPORT | Continuity of Care Document ---
Author Name Unknown Address [address] [facility] [address] [place] [address] [facility] Address [address] [facility] [address] [place] [address] Care Team Providers Care Human Services Manager Name Role Phone PCP, PATIENT DOES NOT HAVE A Primary Care Physic paul Unavailable GC_GCBZW_Matthewa_S Attending Clinician UnavailHERNANDO Guevara Attending Clinician UnavailHardy Trinidad NP Attending Clinician [phone] Nicolasa Ludwig MD Attending Clinician [phone] NICOLASA LUDWIG Attending Clinician Unavailable MICHAEL_GCBZW_Matthewa_S Admitting Clinician HARDY Hines Admitting Clinician Unavailab le Payers Payer Name Policy Type Policy Number Effective Date Expirati on Date Source SELF-PAY CI [id number] [place] FROM [employer] ([facility]) [id number] 2023 00:00:00 Problems Condition Name Condition Details Condition Category Status Onset Date Resolution Date Last Treatment Date Treating Clinician Comments Source Abnormal uterine bleeding Abnormal Uterine Bleeding Problem Active 01-23 00:00: 00 [facility] Endometria l polyp Endometria l Polyp Problem Active 01-23 00:00: 00 [facility] Urgent desire to urinate Urgent Desire to Urinate Problem Active 01-13 00:00: 00 [facility] Polyp of cervix Polyp of Cervix Problem Active 01-13 00:00: 00 [facility] Uterine leiomyoma Uterine Leiomyoma Problem Active 01-13 00:00: 00 [facility] Female stress incontinen ce Female Stress Incontinen ce Problem Active 01-13 00:00: 00 [facility] Postmenopa usal bleeding Postmenopa usal Bleeding Problem Active 01-13 00:00: 00 [facility] Menopausal syndrome Menopausal Syndrome Problem Active 01-13 00:00: 00 [facility] Allergies, Adverse Reactions, Alerts Allergy Name Allergy Type Status Severity Reaction(s) Onset Date Inactive Date Treating Clinician Comments Source Cephalex in Propensi ty to adverse reaction s Active Other - See comments 05-12 00:00: 00 Patients states "I feel crazy in the head" [facility] CEPHALEX IN DRUG INGREDI Active Other-Cmnt 05-12 00:00: 00 [facility] NO KNOWN ALLERGIE S Drug Class Active [facility] Social History Social Habit Start Date Stop Date Quantity Comments Source Gender identity [facility] Sexual orientation U [facility] Sex Assigned At 1970 00:00:00 1970 00:00:00 [facility] Smoking Status Start Date Stop Date Source Tobacco smoking consumption unknown [facility] Never Smoker [facility] Medications Ordered Medication Name Filled Medication Name Start Date Stop Date Current Medication? Ordering Clinician Indication Dosage Frequency Signature (SIG) Comments Components Source ketorolac 30 mg/mL (1 mL) injection solution Inject 1 mL every 6 hours by intramuscul ar route. ketorolac 30 mg/mL (1 mL) injection solution Inject 1 mL every 6 hours by intramuscul ar route. 01-22 13:23: 50 No 1mL Q6H ketorolac 30 mg/mL (1 mL) injection solution Inject 1 mL every 6 hours by intramuscu lar route. [facility] iopamidol (ISOVUE 370-500 mL) injection 80 mL 05-12 09:30: 00 05-12 09:30 :00 No [id number] 80mL 80 mL, Intravenou s, ONCE, 1 dose, On Fri05/12/23 at 0430, Routine [facility] NaCl 0.9% (NS) bolus infusion 1,000 mL 05-12 08:30: 00 05-12 09:48 :00 No 1000mL at 999 mL/hr, 1,000 mL, IV Infusion, ONCE, 1 dose, On Fri05/12/23 at 0330, ARNULFO [facility] amlodipine 10 mg tablet Take 1 tablet every day by oral route. amlodipine 10 mg tablet Take 1 tablet every day by oral route. No 1 Q1D amlodipine 10 mg tablet Take 1 tablet every day by oral route. [facility] losartan 100 mg tablet Take 1 tablet every day by oral route. losartan 100 mg tablet Take 1 tablet every day by oral route. No 1 Q1D losartan 100 mg tablet Take 1 tablet every day by oral route. [facility] metformin 500 mg tablet Take 1 tablet twice a day by oral route. metformin 500 mg tablet Take 1 tablet twice a day by oral route. No 1 BID metformin 500 mg tablet Take 1 tablet twice a day by oral route. [facility] quetiapine 100 mg tablet Take 1 tablet twice a day by oral route. quetiapine 100 mg tablet Take 1 tablet twice a day by oral route. No 1 BID quetiapine 100 mg tablet Take 1 tablet twice a day by oral route. [facility] rosuvastati n 10 mg tablet Take 1 tablet every day by oral route. rosuvastati n 10 mg tablet Take 1 tablet every day by oral route. No 1 Q1D rosuvastat in 10 mg tablet Take 1 tablet every day by oral route. [facility] Vitamin D Vitamin D No Vitamin D [facility] vitamin K2 vitamin K2 No vitamin K2 [facility] Wellbutrin SR 100 mg tablet, 12 hr sustained-r elease Take 1 tablet twice a day by oral route. Wellbutrin SR 100 mg tablet, 12 hr sustained-r elease Take 1 tablet twice a day by oral route. No 1 BID Wellbutrin SR 100 mg tablet, 12 hr sustained- release Take 1 tablet twice a day by oral route. [facility] Celebrex 200 mg capsule Take 1 capsule every day by oral route as directed for 1 day. Celebrex 200 mg capsule Take 1 capsule every day by oral route as directed for 1 day. No 1capsul e(s) Q1D Celebrex 200 mg capsule Take 1 capsule every day by oral route as directed for 1 day. [facility] tramadol 50 mg tablet Take 1 tablet every 6 hours by oral route as directed for 2 days. 1 tablet prior to procedure and then every 6-8 hours after procedure as needed tramadol 50 mg tablet Take 1 tablet every 6 hours by oral route as directed for 2 days. 1 tablet prior to procedure and then every 6-8 hours after procedure as needed No 1 Q6H tramadol 50 mg tablet Take 1 tablet every 6 hours by oral route as directed for 2 days. 1 tablet prior to procedure and then every 6-8 hours after procedure as needed [facility] Valium 10 mg tablet Take 1 tablet as needed by oral route as directed for 2 days. Valium 10 mg tablet Take 1 tablet as needed by oral route as directed for 2 days. No 1 Valium 10 mg tablet Take 1 tablet as needed by oral route as directed for 2 days. [facility] Vital Signs Vital Name Observation Time Observation Value Comments S ource BP Systolic 2024-01-23 00:00:00 150 mm[Hg] [facility] BP Diastolic 2024-01-23 00:00:00 90 mm[Hg] [facility] Height 2024-01-23 00:00:00 64 [in_i] [facility] BMI (Body Mass Index) 2024-01-23 00:00:00 35.9 kg/m2 [facility] Body Weight 2024-01-23 00:00:00 209.2 [lb_av] [facility] Body Weight 2024-01-14 00:00:00 209.2 [lb_av] [facility] BMI (Body Mass Index) 2024-01-14 00:00:00 35.9 kg/m2 [facility] Height 2024-01-14 00:00:00 64 [in_i] [facility] BP Diastolic 2024-01-14 00:00:00 82 mm[Hg] [facility] BP Systolic 2024-01-14 00:00:00 148 mm[Hg] [facility] Systolic blood pressure 2023-05-12 09:40:00 165 mm[Hg] [facility] Diastolic blood pressure 2023-05-12 09:40:00 90 mm[Hg] [facility] Heart rate 2023-05-12 09:40:00 74 /min [facility] Oxygen saturation in Arterial blood by Pulse oximetry 2023-05-12 09:40:00 98 /min [facility] Respiratory rate 2023-05-12 09:00:00 17 /min [facility] Body weight 2023-05-12 05:46:00 95.255 kg [facility] BMI 2023-05-12 05:46:00 36.05 kg/m2 [facility] Body temperature 2023-05-12 05:46:00 37.11 Jania [facility] Body height 2023-05-12 05:46:00 162.6 cm [facility] Procedures Procedure Date / Time Performed Performing Clinician Source URINALYSIS 2023-05-12 08:20:00 Hardy Cross Un [facility] EKG-12 LEAD 2023-05-12 07:45:18 Hardy Cross Un [facility] TROPONIN I 2023-05-12 06:01:00 Hardy Cross Un [facility] COMP. METABOLIC PANEL (75680) 2023-05-12 06:01:00 Hardy Cross [facility] CBC WITH DIFF 2023-05-12 06:01:00 [facility] 2023-05-12 06:01[facility]00 [facility] 2023-05-12 06:01:00 Vinod Cross [facility] COVID-19 (ID NOW RAPID TESTING) 2023-05-12 06:01:00 Hardy Cross [facility] NOTICE OF PRIVACY PRACTICES 2023-05-12 05:39:31 Doctor Unassigned, [place] [facility] CONSENT/REFUSAL FOR DIAGNOSIS AND TREATMENT 2023-05-12 05:38:30 Doctor Unassigned, [place] [facility] Hysterectomy [facility] Cholecystectomy (Gallbladder) [facility] Encounters Start Date/Time End Date/Time Encounter Type Admission Type Attending Clinicians Care Facility Care Department Encounter ID Source 2021-09-25 12:28:10 Outpatient IBNS IB[facility] [id number] - [id number] [facility] 2021-09-25 12:21:21 Outpatient IBNS IBNS [id number] - [id number] [facility] 2024-05-27 00:00:00 2024-05-27 00:00:00 MEGAN Sosa: [address], [place] [phone] , Ph. [facility] GC_GCBZW_Gertrude Hutchinson* [id number] [facility] 2024-01-23 00:00:00 2024-01-23 00:00:00 Renae Reese MD: [address], [place] [phone] , Ph. [facility] GC_GCBZW_Gertrude Hutchinson* [id number] [facility] 2024-01-14 00:00:00 2024-01-14 00:00:00 Renae Reese MD: [address], [place] [phone] , Ph. [facility] GC_GCBZW_Gertrude Hutchinson* [id number] [facility] 2023-11-03 00:00:00 2023-11-03 00:00:00 Outpatient GC_GCBZW_Ka diyala_S [facility] [id number] [facility] 2023-10-29 00:00:00 2023-10-29 00:00:00 Outpatient GC_GCBZW_Ka diyala_S [facility] [id number] [facility] 2023-10-19 16:51:00 2023-10-19 21:23:00 Emergency HERNANDO KENT [facility] [id number] [facility] 2023-05-12 00:48:00 2023-05-12 04:50:00 Emergency [place] Nicolasa Silva [facility] [id number] [facility] 2023-05-12 00:48:00 2023-05-12 04:50:00 Emergency X NICOLASA LUDWIG [facility] ERT [id number] [facility] Results Test Description Test Time Test Comments Results Result Co mments Source [facility] [id number] 07:32:05* Test Item Value Reference Range Interpretation Comme nts NT-proBNP (test code = 98570-6) <=125 Lab Interpretation (test cod e = 67491-4) [facility] [id number] 07:26:54* Test Item Value Reference Range Interpretation [...] 32.9 g/dL 31.6-35.1 RDW-SD (test code = 87343-9) 43.3 fL 39.0-49.9 RDW-CV (test code = 788-0) 13.3 % 12.0-15.5 PLT (test code = 777-3) 420 See_Comment H [Automated messa ge] The system which generated this result transmitted reference range: 166 - 358 10*3/?L. The reference range was not used to interpret this result as normal/abnormal. MPV (test code = 49655-4) 11.2 fL 9.5-12.9 NRBC/100 WBC (test code = 3141856354) 0.0 See_Comment [Automated me ssage] The system which generated this result transmitted reference range: 0.0 - 10.0 /100 WBCs. The reference range was not used to interpret this result as normal/abnormal. NRBC x10^3 (test code = 9934538372) See_Comment [Automated messa ge] The system which generated this result transmitted reference range: 10*3/?L. The reference range was not used to interpret this result as normal/abnormal. GRAN MAT (NEUT) % (test code = 770-8) 45.6 % IMM GRAN % (test code = 9318968651) 0.40 % LYMPH % (test code = 736-9) 43.7 % MONO % (test code = 5905-5) 7.8 % EOS % (test code = 713-8) 1.9 % BASO % (test code = 706-2) 0.6 % GRAN MAT x10^3(ANC) (test code = 2016703000) 4.95 10*3/uL 1.88-7.09 IMM GRAN x10^3 (test code = 3824966655) 0.04 10*3/uL 0.00-0.06 LYMPH x10^3 (test code = 731-0) 4.73 10*3/uL 1.32-3.29 H MONO x10^3 (test code = 742-7) 0.84 10*3/uL 0.33-0.92 EOS x10^3 (test code = 711-2) 0.21 10*3/uL 0.03-0.39 BASO x10^3 (test code = 704-7) 0.06 10*3/uL 0.01-0.07 Lab Interpretation (test code = 91658-8) [facility]normal [facility] [id number] 07:09:13* Test Item Value Reference Range Interpretation Comme nts TROPONIN I (test code = 5680791569) 0.003 ng/mL <=0.034 TAMELA (test code = [...] of biotin. Lab Interpretation (test code = 20761-2) [facility] (49511)2023-05-12 07:09:12* Test Item Value Reference Range Interpretation Comme nts NA (test code = 6167003277) 140 mmol/L 135-145 K (test code = 7865363749) 3.5 mmol/L 3.5-5.0 CL (test code = 6360725815) 106 mmol/L 98-108 CO2 TOTAL (test code = 7655153826) 27 mmol/L 23-31 AGAP (test code = 2701160250) 7 2-16 BUN (test code = 1942034405) 17 mg/dL 7-23 GLUCOSE (test code = 7293728502) 122 mg/dL 70-110 H CREATININE (test code = 8022628047) 0.62 mg/dL 0.50-1.04 TOTAL BILI (test code = 1776442161) 0.2 mg/dL 0.1-1.1 CALCIUM (test code = 8677880662) 9.2 mg/dL 8.6-10.6 T PROTEIN (test code = 8635566698) 7.8 g/dL 6.3-8.2 ALBUMIN (test code = 5428244637) 4.0 g/dL 3.5-5.0 ALK PHOS (test code = 7386390697) 106 U/L 34-122 ALTv (test code = 1742-6) 28 U/L 5-35 AST(SGOT) (test code = 0217764680) 27 U/L 13-40 eGFR (test code = 9005794769) 100.3 mL/min/1.73m2 TAMELA (test code = TAMELA) [...] imaging tests). Lab Interpretation (test code = 48068-2) Abnormal [facility] Notes Date/Time Note Provider Source 2023-05-12 04:49:07 Formatting of this n ote might be different from the original. Awake, alert oriented X4, respiratory even and unlabored,skin w/d color appropriate for race, moves all ext well, pt encouraged to follow up with pcp and or return as needed Pt given printed and verbal discharge instructions regarding SOB,Thrombocytosis, thrombocytosis, weakness, Elevated d-dimer, Multinodular thyroid , patient verbralized understanding and signature obtained, patient denies any other concerns. Advised to seek medical attention for new/prolonged/worsening of symptoms, No adverse reaction to meds given in ER noted upon discharge Pt ambulated to the lobby with steady gait Vianca Roman RN [facility] [employer] 2023-05-12 00:45:55 Formatting of this n ote might be different from the original. Patient arrived ambulatory c/o of shortness of breath that comes and goes the past three weeks with generalized weakness. T [facility] [employer]
[2024-06-03] MEDS ORDERED: METRONIDAZOLE 500mg IVPB 500 MG/100 ML BAG IV ONE (16:41)
[2024-06-03 16:46] LABS: Absolute Basophils 0.1 K/uL (0-0.5); Absolute Eosinophils 0.2 K/uL (0-0.5); Absolute Lymphocytes (CBC) 3.7 K/uL (0.7-4.9); Absolute Monocytes 0.7 K/uL (0.1-1.3); Absolute Neutrophil 5.6 K/uL (1.8-8.0); Eosinophils % 2.2 % (0-4.4); Hematocrit 36.5 % (36.0-45.0); Hemoglobin 12.5 g/dL (12.0-15.0); MCHC 34.4 g/dL (32.0-36.0); MCV 87.1 fL (80-100); Monocytes % 6.9 % (3.3-12.3); Neutrophils % 53.9 % (41.7-73.7); Nucleated Red Blood Cells % 0.1 % (0-0); Platelets 443 thou/uL (152-406); RBC Red Blood Cell Count 4.18 M/uL (3.86-4.86); Red Cell Distribution Width 13.4 % (12.1-15.2)
[2024-06-03 16:58] LABS: PT Prothrombin Time 11.3 SECONDS (9.4-12.5); PTT, Activated Partial Thromb 34.3 SECONDS (24.3-36.9); Protime INR 1.01
[2024-06-03 17:03] LABS: Albumin 3.5 g/dL (3.4-5.0); Albumin/Globulin Ratio 0.8 (1.1-1.8); Anion Gap 9.5 mEq/L (5.0-15.0); Bilirubin Total 0.5 mg/dL (0.2-1.0); Globulin 4.5 g/dL (2.3-3.5); Potassium 3.5 mEq/L (3.5-5.1)
[2024-06-03] MEDS ORDERED: Ciprofloxacin 200mg IV 400 MG/200 ML IV.SOLN. IV ONE (17:36)
--- NOTE | 2024-06-03 18:44 | RAD REPORT ---
EXAMINATION: CT ABDOMEN AND PELVIS WITH CONTRAST CLINICAL INDICATION: Female, 53 years old.ABD PAIN TECHNIQUE: CT abdomen and pelvis was performed, after the administration of IV contrast, as per [facility]. Axial, sagittal and coronal reconstructions were obtained. One or more of the following dose reduction techniques were used: Automated exposure control, adjustment of the mA and/o r kV according to patient size, and/or iterative reconstruction. Unless otherwise specified, incidental findings do not require dedicated imaging follow-up. [id number]. COMPARISON: No prior exam. FINDINGS: LOWER CHEST: The visualized lung bases are clear. LIVER: Normal in size and contour. No focal lesion. GALLBLADDER/BILE DUCT: No biliary ductal dilatation.?Cholecystectomy. PANCREAS: No significant abnormality. SPLEEN: Normal size. No focal lesion. ADRENALS: Normal; no mass. KIDNEYS AND URETERS: Normal size and contour. No hydronephrosis. GASTROINTESTINAL TRACT: Stomach is non-dilated. Small bowel has normal course and caliber. No colonic wall thickening or pericolonic inflammatory changes. Diverticulosis without diverticulitis. PERITONEUM: No ascites. Small fat-containing umbilical hernia. LYMPH NODES: No lymphadenopathy. ABDOMINAL AORTA AND OTHER VESSELS: Normal caliber aorta and IVC. URINARY BLADDER: Normal contour. REPRODUCTIVE ORGANS: No pathologic process MUSCULOSKELETAL: No acute or suspicious osseous abnormality. ADDITIONAL FINDINGS: None. IMPRESSION: No acute or significant abnormalities seen in the abdomen or pelvis.
--- NOTE | 2024-06-03 18:52 | ER ---
Nurse's Notes [facility] Name: Maria G Ndiaye Age: 53 yrs Sex: Female : 1970 Arrival Date: 06/03/2024 Time: 16:11 Bed 14 Private MD: Diagnosis: Abdominal pain, unspecified Presentation: 06/03 16:17 Chief complaint: Patient states: I think im having a diverticulitis attack, loose ko1 bloody stools and abdominal pain for 1 week. Coronavirus screen: At this time, the client does not indicate any symptoms associated with coronavirus-19. Ebola Screen: No symptoms or risks identified at this time. Initial Sepsis Screen: Does the patient meet any 2 criteria? No. Patient's initial sepsis screen is negative. Does the patient have a suspected source of infection? No. Patient's initial sepsis screen is negative. Risk Assessment: Do you want to hurt yourself or someone else? Patient reports no desire to harm self or others. Onset of symptoms was June 03, 2024. 16:17 Method Of Arrival: Ambulatory ko1 16:17 Acuity: CECILIA 3 ko1 Triage Assessment: 16:20 General: Appears in no apparent distress. Behavior is calm, cooperative, appropriate ko1 for age. Pain: Complains of pain in abdomen. GI: Reports cramping, rectal bleeding. 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 - Infectious Disease History:: Denies. - Social history:: Smoking status: Patient denies any tobacco usage or history of. - Family history:: not pertinent. - Hospitalizations: : No recent hospitalization is reported. Screenin:30 [facility] ED Fall Risk Assessment (Adult) History of falling in the last 3 months, me1 including since admission No falls in past 3 months (0 pts) Confusion or Disorientation No (0 pts) Intoxicated or Sedated No (0 pts) Impaired Gait No (0 pts) Mobility Assist Device Used No (0 pt) Altered Elimination No (0 pt) Score/Fall Risk Level 0 - 2 = Low Risk Maintained a safe environment, Provided non-skid footwear, Hourly rounding (assess needs \T\ fall precautionary measures) done. Abuse screen: Denies threats or abuse. Nutritional screening: No deficits noted. Tuberculosis screening: No symptoms or risk factors identified. Assessment: 16:30 General: Appears ill, well groomed, well developed, well nourished, Behavior is calm, me1 cooperative, appropriate for age, Reports I think im having a diverticulitis attack, loose bloody stools and abdominal pain for 1 week. Pain: Complains of pain in abdomen Pain does not radiate. Pain currently is 4 out of 10 on a pain scale. Quality of pain is described as crampy, Pain began gradually, about a week ago. Neuro: Level of Consciousness is awake, alert, obeys commands, Oriented to person, place, time, situation, Appropriate for age. Cardiovascular: Patient's skin is warm and dry. Respiratory: Airway is patent Respiratory effort is even, unlabored, Respiratory pattern is regular, symmetrical. GI: Abdomen is round non-distended, Bowel sounds present X 4 quads. Abd is soft X 4 quads. GI: Reports lower abdominal pain, rectal bleeding, nausea. : No signs and/or symptoms were reported regarding the genitourinary system. EENT: No signs and/or symptoms were reported regarding the EENT system. Derm: Skin is intact, is healthy with good turgor, Skin is pink, warm \T\ dry. Musculoskeletal: No signs and/or symptoms reported regarding the musculoskeletal system. Vital Signs: 16:17 BP 151 / 95; Pulse 74; Resp 15; Temp 97.4; Pulse Ox 99% ; ko1 17:00 BP 136 / 63; Pulse 68; Resp 16; Pulse Ox 99% ; me1 18:00 BP 145 / 84; Pulse 72; Resp 17; Pulse Ox 97% ; me1 19:00 BP 154 / 86; Pulse 66; Resp 17; Temp 98.5; Pulse Ox 98% ; me1 ED Course: 16:14 Patient arrived in ED. im 16:15 Avila Bernard MD is Attending Physician. rn 16:20 Triage completed. ko1 16:20 Arm band placed on right wrist. Patient placed in an exam room, on a stretcher, on ko1 pulse oximetry, Patient notified of wait time. 16:28 Sis Varela, RN is Primary Nurse. me1 16:30 Patient has correct armband on for positive identification. Bed in low position. Call me1 light in reach. Side rails up X2. Provided Education on: POC. Verbalized understanding. . Client placed on continuous cardiac and pulse oximetry monitoring. NIBP monitoring applied. Pulse ox on. NIBP on. 16:30 No provider procedures requiring assistance completed. ky1 16:37 CBC with Diff Sent. me1 16:37 CMP Sent. me1 16:37 Lipase Sent. me1 16:37 Ptt, Activated Sent. me1 16:37 Protime (+inr) Sent. me1 16:38 Initial lab(s) drawn, by ky, sent to lab. Inserted saline lock: 22 gauge in right me1 antecubital area, using aseptic technique. 18:12 CT Abd/Pelvis - IV Contrast Only In Process Unspecified. EDMS 19:27 IV discontinued, intact, bleeding controlled, No redness/swelling at site. Pressure ky1 dressing applied. Administered Medications: 16:43 Drug: metroNIDAZOLE IVPB 500 mg 100 ml IVPB at 200 ml/hr once over 30 mins Volume: 100 me1 ml; Route: IVPB; Rate: 200 ml/hr; Infused Over: 30 mins; Site: right antecubital; 17:41 Follow up: Response: No adverse reaction; IV Status: Completed infusion; IV Intake: me1 100ml 17:46 Drug: Ciprofloxacin IVPB 400 mg 200 ml IVPB once over 60 mins Volume: 200 ml; Route: me1 IVPB; Infused Over: 60 mins; Site: right antecubital; 19:15 Follow up: Response: No adverse reaction; IV Status: Completed infusion; IV Intake: me1 200ml Medication: 16:30 VIS not applicable for this client. me1 Intake: 17:41 IV: 100ml; Total: 100ml. me1 19:15 IV: 200ml; Total: 300ml. me1 Outcome: 18:52 Discharge ordered by . rn 19:32 Discharged to home ambulatory, with significant other, me1 19:32 Condition: stable 19:32 Discharge instructions given to patient, significant other, Instructed on discharge instructions, follow up and referral plans. medication usage, Demonstrated understanding of instructions, follow-up care, medications, Prescriptions given X 4, 19:33 Patient left the ED. me1 Signatures: Dispatcher [employer] EDAvila Mcdonald MD MD rn Oliver, Kathy, RN RN ko1 Ghada Subramanian Michelle, RN RN me1 Corrections: (The following items were deleted from the chart) 17:46 16:17 Chief complaint: Patient states: I think im having a diverticulitis attack, loose me1 bloody stools and abdominal pain for 1 week ko1
--- NOTE | 2024-06-03 18:52 | EDPHYS ---
Physician Documentation [facility] Name: Maria G Ndiaye Age: 53 yrs Sex: Female : 1970 Arrival Date: 06/03/2024 Time: 16:11 Bed 14 Private MD: ED Physician Avila Bernard HPI: 06/03 16:28 This 53 yrs old Female presents to ER via Ambulatory with complaints of rn Abdominal Pain, Rectal Bleeding. 16:28 The patient presents with abdominal pain in the left lower quadrant. Onset: The rn symptoms/episode began/occurred 4 day(s) ago. The symptoms do not radiate. Associated signs and symptoms: Pertinent positives: blood in stools, Pertinent negatives: chest pain, constipation, fever. The symptoms are described as sharp, stabbing. Modifying factors: The symptoms are alleviated by nothing, the symptoms are aggravated by movement, touching the area. Severity of pain: At its worst the pain was mild in the emergency department the pain is unchanged. The patient has experienced similar episodes in the past. Patient reports left lower quadrant abdominal pain and bloody diarrhea for 4 days. No fever or chills. Feels identical to previous episodes of diverticulitis. Has never had a perforation or required surgical intervention.. 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 - Infectious Disease History:: Denies. - Social history:: Smoking status: Patient denies any tobacco usage or history of. - Family history:: not pertinent. - Hospitalizations: : No recent hospitalization is reported. ROS: 16:28 Constitutional: Negative for fever, chills, and weight loss, Cardiovascular: Negative rn for chest pain, palpitations, and edema, Respiratory: Negative for shortness of breath, cough, wheezing, and pleuritic chest pain, Abdomen/GI: Positive for abdominal pain with nausea and diarrhea Back: Negative for injury and pain, : Negative for injury, bleeding, discharge, and swelling, MS/Extremity: Negative for injury and deformity, Neuro: Negative for headache, weakness, numbness, tingling, and seizure, Exam: 16:28 Constitutional: This is a well developed, well nourished patient who is awake, alert, rn and in no acute distress. Ambulatory to room without difficulty or assistance Cardiovascular: Regular rate and rhythm. No pulse deficits. Abdomen/GI: Soft, mild left lower quadrant and left upper quadrant tenderness, no peritoneal signs or distention Vital Signs: 16:17 BP 151 / 95; Pulse 74; Resp 15; Temp 97.4; Pulse Ox 99% ; ko1 17:00 BP 136 / 63; Pulse 68; Resp 16; Pulse Ox 99% ; me1 18:00 BP 145 / 84; Pulse 72; Resp 17; Pulse Ox 97% ; me1 19:00 BP 154 / 86; Pulse 66; Resp 17; Temp 98.5; Pulse Ox 98% ; me1 MDM: 16:15 Patient medically screened. rn 18:49 Differential diagnosis: bowel obstruction, diverticulitis, GI Bleed, non-specific abd rn pain, pancreatitis, Peptic Ulcer Disease, Perf. Duodenal Ulcer. Data reviewed: vital signs, nurses notes, lab test result(s), radiologic studies, CT scan, and as a result, I will discharge patient. Counseling: I had a detailed discussion with the patient and/or guardian regarding the historical points, exam findings, and any diagnostic results supporting the discharge/admit diagnosis, lab results, radiology results, the need for outpatient follow up, to return to the emergency department if symptoms worsen or persist or if there are any questions or concerns that arise at home. Special discussion: I discussed with the patient/guardian in detail that at this point there is no indication for admission to the hospital. It is understood, however, that if the symptoms persist or worsen the patient needs to return immediately for re-evaluation. ED course: No acute findings and workup today. No indication for emergent admission. Will still treat as possible diverticulitis given recurrent episodes and story consistent with early diverticulitis. No evidence of perforation. Return precautions given and understood. Patient states she is going to follow-up with GI.. 06/03 16:16 Order name: CBC with Diff; Complete Time: 17: rn 06/03 16:16 Order name: CMP; Complete Time: : rn 06/03 16:16 Order name: Lipase; Complete Time: : rn 06/03 16:16 Order name: Protime (+inr); Complete Time: 17: rn 06/03 16:16 Order name: Ptt, Activated; Complete Time: 17: rn 06/03 16:16 Order name: CT Abd/Pelvis - IV Contrast Only; Complete Time: 18:45 rn 06/03 16:16 Order name: IV Saline Lock; Complete Time: 16:37 rn 06/03 16:16 Order name: Labs collected and sent; Complete Time: 16:37 rn Administered Medications: 16:43 Drug: metroNIDAZOLE IVPB 500 mg 100 ml IVPB at 200 ml/hr once over 30 mins Volume: 100 me1 ml; Route: IVPB; Rate: 200 ml/hr; Infused Over: 30 mins; Site: right antecubital; 17:41 Follow up: Response: No adverse reaction; IV Status: Completed infusion; IV Intake: me1 100ml 17:46 Drug: Ciprofloxacin IVPB 400 mg 200 ml IVPB once over 60 mins Volume: 200 ml; Route: me1 IVPB; Infused Over: 60 mins; Site: right antecubital; 19:15 Follow up: Response: No adverse reaction; IV Status: Completed infusion; IV Intake: me1 200ml Disposition Summary: 06/03/24 18:52 Discharge Ordered Notes: Location: Home rn Problem: new rn Symptoms: have improved rn Condition: Stable rn Diagnosis - Abdominal pain, unspecified rn Followup: rn - With: Private Physician - When: As needed - Reason: Recheck today's complaints, Re-evaluation by your physician Discharge Instructions: - Discharge Summary Sheet rn - Abdominal Pain, Adult rn Forms: - Medication Reconciliation Form rn - 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 Opioid Use rn - Patient Portal Instructions rn - Leadership Thank You Letter rn Prescriptions: - ondansetron 4 mg Oral Tablet,disintegrating - take 1 tablet ORAL route every 8 hours As needed; 14 tablet; Refills: 0, rn Product Selection Permitted - Flagyl 500 mg Oral Tablet - take 1 tablet ORAL route every 12 hours for 7 days; 14 tablet; Refills: 0, rn Product Selection Permitted - Cipro 500 mg Oral Tablet - take 1 tablet ORAL route every 12 hours for 7 days; 14 tablet; Refills: 0, rn Product Selection Permitted - Tramadol 50 mg Oral Tablet - take 1 tablet ORAL route every 8 hours as needed; 12 tablet; Refills: 0, rn Product Selection Permitted Signatures: Dispatcher [employer] Avila Catalan MD MD rn Kianna Caceres RN RN ko1 Sis Varela RN RN me1
[2024-06-03 20:00] VITALS: BP 154/86; TEMP 98.5; O2SAT 98
== END 2024-06-03 19:33 | disposition home or self-care (01) ==
LOC: ER 16:11
DX: R10.32 Left lower quadrant pain (principal); K92.1 Melena; I10 Essential (primary) hypertension
CPT/HCPCS: 85025; 36415; 85610; 85730; 83690; 80053; 74177; Q9967; J0744; 96365; 96367; 99284

== ENCOUNTER 2024-07-15 08:51 | Day surgery (SDC) | payer OTHER ==
[2024-07-12 16:25] LABS: Absolute Eosinophils 0.2 K/uL (0-0.5); Absolute Monocytes 0.5 K/uL (0.1-1.3); Absolute Neutrophil 3.7 K/uL (1.8-8.0); Basophils % 0.5 % (0-1.3); Hematocrit 36.3 % (36.0-45.0); Hemoglobin 12.2 g/dL (12.0-15.0); Lymphocytes % 40.5 % (15.3-44.8); MCH 29.9 pg (27.0-35.0); MCHC 33.7 g/dL (32.0-36.0); MCV 88.6 fL (80-100); MPV 9.1 fL (7.6-11.3); Monocytes % 6.9 % (3.3-12.3); Neutrophils % 50.1 % (41.7-73.7); Platelets 405 thou/uL (152-406); Red Cell Distribution Width 14.1 % (12.1-15.2)
[2024-07-12 16:33] LABS: Anion Gap 8.8 mEq/L (5.0-15.0); Potassium 3.8 mEq/L (3.5-5.1)
--- NOTE | 2024-07-14 11:49 | EKG ---
Test Date: 2024-07-12 Test Time: 16:29:56 Director Of Research And Development: CHAR MEASUREMENT RESULTS: Intervals: Rate: 63 MN: 144 QRSD: 116 QT: 360 QTc: 368 [place]: P: 61 MN: 144 QRS: 67 T: 54 INTERPRETIVE STATEMENTS: Normal sinus rhythm Incomplete right bundle branch block Nonspecific T wave abnormality Abnormal ECG Compared to ECG 09/29/2023 14:42:03 T-wave abnormality now present Electronically Signed On 07-14-24 11:48:04 MANUFACTURING MANAGER by Philipp Browning
[2024-07-15] MEDS: NA CHLORIDE 0.9% 1,000 ML ONE (09:20)
[2024-07-15] MEDS ORDERED: dexAMETHasone 10 MG/ML VIAL ONE (10:02)
[2024-07-15] MEDS ORDERED: MIDAZOLAM HCL 2 MG/2 ML INJ ONE (10:02)
[2024-07-15] MEDS ORDERED: FENTANYL CITR 100 MCG/2 ML ONE (10:02)
[2024-07-15] MEDS ORDERED: ONDANSETRON 4 MG/2 ML VIAL ONE (10:02)
[2024-07-15] MEDS ORDERED: LIDOCAINE 2% MPF 5 ML VIAL ONE (10:02)
[2024-07-15] MEDS ORDERED: propofoL 200 MG/20 ML VIAL IV ONE (10:02)
[2024-07-15] MEDS ORDERED: KETOROLAC 30 MG/ML INJ ONE (10:02)
[2024-07-15] MEDS: LIDOCAINE HCL/EPINEPHRINE 20 ML MDV ONE (10:55)
[2024-07-15] MEDS ORDERED: NA CHLORIDE 0.9% 1,000 ML ONE (11:43)
[2024-07-15 13:16] VITALS: BP 126/62; TEMP 97.6; O2SAT 100
--- NOTE | 2024-07-15 21:55 | OP ---
Date of Procedure: 07/15/2024 Surgeon: Renae Reese MD Human Resources Records Clerk: No administrative support assistant. Preoperative Diagnoses: Postmenopausal bleeding and endometrial polyps. Postoperative Diagnoses: Postmenopausal bleeding and endometrial polyps. Procedures Performed: Operative hysteroscopy, polypectomy x3, and dilatation and curettage. Anesthesia: MAC plus paracervical block. Complications: No complications. Drains: No drains. Specimens: Endometrial curettings and polyps. Estimated Blood Loss: Minimal. Condition: Stable. Findings: Endometrial polyps x3, the largest was sessile and on the fundus and right lateral wall po lyp was the second largest and the third smallest was in the distal portion of the posterior wall jus t above the internal os. All these were cut at the base and removed with scissors and polyp forceps which were all hysteroscopic instruments. The endometrial cavity appeared to be unremarkable and distorted. Endometrium appeared to be mostly unremarkable. Indication: The patient is a 53-year-old presenting with postmenopausal bleeding. On transvaginal u ltrasound, she had endometrial thickening. On diagnostic office hysteroscopy, polyps were noted. So , she was consented for a hysteroscopic polypectomy and D and C for sampling to rule out atypia, isai gnancy, and removal of polyps. Description Of Procedure: She was consented in the preoperative area again, taken back to the OR, pl aced in a supine fashion on the operating table. After MAC was given, she was placed in a dorsal lit hotomy position. Vulva and vagina were prepped and draped in a sterile fashion. Speculum was placed to expose the cervix. Anterior lip had an ectocervical growth that is benign appearing. Paracervic al block was given with 1% lidocaine mixed with 1:100,000 epinephrine 5 cc at the 12 o'clock position on the cervix and at 4 and 8 o'clock positions on the cervicovaginal junction. The rest was divided . Using a diagnostic SlimLine hysteroscope, the cervical canal was traversed under direct vision and the uterine cavity was entered. The polyps were noted as dictated above. So the scope was removed. Operative sheath was placed and the scissors were introduced through the sheath and the right later al wall polyp was cut at the base and removed with the hysteroscopic polyp forceps followed by the fu ndal polyp and then the posterior wall polyp. All were removed. Once all instruments were removed, the curettings were performed with a 0 curette and these were scant. All the specimens were placed i n 1 jar to be sent to permanent pathology. All instruments were removed. Instrument and sponge coun ts were correct. At the end of the case, patient was recovered from anesthesia and taken to PACU in stable condition. Was taken to Day surgery in stable condition. She will follow up in 1 week, 5 wor gigi days, for pathology report. HENRIQUE/JENNIFER Voice ID: [id number] Report ID: [id number]
== END 2024-07-15 12:20 | disposition home or self-care (01) ==
LOC: OR 08:51
PROVIDERS: ATTEND Obstetrics & Gynecology
PROC: 0UB98ZZ Excision of Uterus, Via Natural or Artificial Opening Endoscopic (ICD-10-PCS; principal; 2024-07-15 10:30)
DX: N95.0 Postmenopausal bleeding (principal); N84.0 Polyp of corpus uteri; I10 Essential (primary) hypertension
CPT/HCPCS: 93005; 85025; 80048; 36415; 82947; 88305; 58558; J2704; J2003; J2250; J3010; J1100; J2405; J7030 ×2

== ENCOUNTER 2024-10-16 14:49 | Emergency (ER) | payer BC ==
--- OUTSIDE RECORDS SUMMARY | 2024-10-16 14:52 | XMS REPORT | Continuity of Care Document ---
Author Name Unknown Address [address] [facility] [place] [address] [facility] Address [address] [facility] [address] [place] [address] Care Team Providers Care Press Tender Smoke Signal Name Role Phone PCP, PATIENT DOES NOT HAVE A Primary Care Physic paul Unavailable GC_GCBZW_Matthewa_S Attending Clinician HERNANDO Lynch Attending Clinician UnavailHardy Trinidad NP Attending Clinician [phone] Nicolasa Ludwig MD Attending Clinician [phone] NICOLASA LUDWIG Attending Clinician Unavailable MICHAEL_GCBZW_Matthewa_S Admitting Clinician HARDY Hines Admitting Clinician Unavailab le Payers Payer Name Policy Type Policy Number Effective Date Expirati on Date Source SELF-PAY CI [id number] [place] FROM [employer] ([facility]) [id number] 2023 00:00:00 Problems Condition Name Condition Details Condition Category Status Onset Date Resolution Date Last Treatment Date Treating Clinician Comments Source Essential hypertensi on Essential Hypertensi on Problem Active 2023-08 00:00: 00 [facility] Cystocele Cystocele Problem Active 2023-08 00:00: 00 [facility] Endometria l polyp Endometria l Polyp Problem Active 01-23 00:00: 00 [facility] Abnormal uterine bleeding Abnormal Uterine Bleeding Problem [...] states "I feel crazy in the head" [facility] CEPHALEX IN DRUG INGREDI Active Other-Cmnt 05-12 00:00: 00 [facility] NO KNOWN ALLERGIE S Drug Class Active [facility] Social History Social Habit Start Date Stop Date Quantity Comments Source Gender identity [facility] Sexual orientation U [facility] Sex Assigned At 1970 00:00:00 1970 00:00:00 [facility] Smoking Status Start Date Stop Date Source Never Smoker [facility] Tobacco smoking consumption unknown [facility] Medications Ordered Medication Name Filled Medication Name Start Date Stop Date Current Medication? Ordering Clinician Indication Dosage Frequency Signature (SIG) Comments Components Source iopamidol (ISOVUE 370-500 mL) injection 80 mL 05-12 09:30: 00 05-12 09:30 :00 No [id number] 80mL 80 mL, Intravenou s, ONCE, 1 dose, On Fri05/12/23 at 0430, Routine [facility] NaCl 0.9% (NS) bolus infusion 1,000 mL 05-12 08:30: 00 05-12 09:48 :00 No 1000mL at 999 mL/hr, 1,000 mL, IV Infusion, ONCE, 1 dose, On Fri05/12/23 at 0330, ARNULFO [facility] amlodipine 10 mg tablet Take 1 tablet every day by oral route. amlodipine 10 mg tablet Take 1 tablet every day by oral route. No 1 Q1D amlodipine 10 mg tablet Take 1 tablet every day by oral route. [facility] losartan 100 mg tablet Take 1 tablet every day by oral route. losartan 100 mg tablet Take 1 tablet every day by oral route. No 1 Q1D losartan 100 mg tablet Take 1 tablet every day by oral route. [facility] metformin 500 mg tablet Take 1 tablet twice a day by oral route. metformin 500 mg tablet Take 1 tablet twice a day by oral route. No 1 BID metformin 500 mg tablet Take 1 tablet twice a day by oral route. [facility] quetiapine 100 mg tablet Take 1 tablet twice a day by oral route. quetiapine 100 mg tablet Take 1 tablet twice a day by oral route. No 1 BID quetiapine 100 mg tablet Take 1 tablet twice a day by oral route. [facility] Vitamin D Vitamin D No Vitamin D [facility] vitamin K2 vitamin K2 No vitamin K2 [facility] Wellbutrin SR 100 mg tablet, 12 hr sustained-r elease Take 1 tablet twice a day by oral route. Wellbutrin SR 100 mg tablet, 12 hr sustained-r elease Take 1 tablet twice a day by oral route. No 1 BID Wellbutrin SR 100 mg tablet, 12 hr sustained- release Take 1 tablet twice a day by oral route. [facility] Vital Signs Vital Name Observation Time Observation Value Comments S ource BP Diastolic 2024-07-26 00:00:00 85 mm[Hg] [facility] Body Weight 2024-07-26 00:00:00 204.2 [lb_av] [facility] Height 2024-07-26 00:00:00 64 [in_i] [facility] BP Systolic 2024-07-26 00:00:00 160 mm[Hg] [facility] BMI (Body Mass Index) 2024-07-26 00:00:00 35.1 kg/m2 [facility] Height 2024-07-01 00:00:00 64 [in_i] [facility] BMI (Body Mass Index) 2024-07-01 00:00:00 35.1 kg/m2 [facility] Body Weight 2024-07-01 00:00:00 204.2 [lb_av] [facility] BP Diastolic 2024-07-01 00:00:00 79 mm[Hg] [facility] BP Systolic 2024-07-01 00:00:00 138 mm[Hg] [facility] BP Systolic 2024-01-23 00:00:00 150 mm[Hg] [facility] [...] Systolic blood pressure 2023-05-12 09:40:00 165 mm[Hg] [facility] Diastolic blood pressure 2023-05-12 09:40:00 90 mm[Hg] [facility] Heart rate 2023-05-12 09:40:00 74 /min [facility] Oxygen saturation in Arterial blood by Pulse oximetry 2023-05-12 09:40:00 98 /min [facility] Respiratory rate 2023-05-12 09:00:00 17 /min [facility] Body temperature 2023-05-12 05:46:00 37.11 Jania [facility] Body height 2023-05-12 05:46:00 162.6 cm [facility] Body weight 2023-05-12 05:46:00 95.255 kg [facility] BMI 2023-05-12 05:46:00 36.05 kg/m2 [facility] Procedures Procedure Date / Time Performed Performing Clinician Source Hysteroscopy 2024-07-15 00:00:00 Charles Vera edical URINALYSIS 2023-05-12 08:20:00 Hardy Cross Un [facility] EKG-12 LEAD 2023-05-12 07:45:18 Hardy Cross Un [facility] TROPONIN I 2023-05-12 06:01:00 Hardy Cross Un [facility] COMP. METABOLIC PANEL (61102) 2023-05-12 06:01:00 Hardy Cross [facility] CBC WITH DIFF 2023-05-12 06:01:00 [facility] 2023-05-12 06:01:00 Hardy Cross Un [facility] N-TERMINAL PRO-BNP 2023-05-12 06:01:00 Vinod Cross [facility] COVID-19 (ID NOW RAPID TESTING) 2023-05-12 06:01:00 Hardy Cross [facility] NOTICE OF PRIVACY PRACTICES 2023-05-12 05:39:31 Doctor Unassigned, [place] [facility] CONSENT/REFUSAL FOR DIAGNOSIS AND TREATMENT 2023-05-12 05:38:30 Doctor Unassigned, [place] [facility] Hysterectomy [facility] Cholecystectomy (Gallbladder) [facility] Medical Encounters Start Date/Time End Date/Time Encounter Type Admission Type Attending [facility] Facility Care Department Encounter ID Source 2021-09-25 12:28:10 Outpatient IBNS IBNS [id number] - [id number] [facility] 2021-09-25 12:21:21 Outpatient IBNS IBNS [id number] - [id number] [facility] 2024-07-26 00:00:00 2024-07-26 00:00:00 MEGAN Sosa: [address], [address], [place] [address] , Ph. [facility] - GC_GCBZW_Gertrude Hutchinson* [id number] [facility] 2024-07-01 00:00:00 2024-07-01 00:00:00 TOMA Roblero: [address], [address], [place] [address] , Ph. [facility] GC_GCBZW_Gertrude Hutchinson* [id number] [facility] 2024-05-27 00:00:00 2024-05-27 00:00:00 MEGAN Sosa: [address], [place] [address] , Ph. [facility] GC_GCBZW_Gertrude Hutchinson* [id number] [facility] 2024-01-23 00:00:00 2024-01-23 00:00:00 Renae Reese MD: [address], [place] [address] , Ph. [facility] - GC_GCBZW_Gertrude Hutchinson* [id number] [facility] 2024-01-14 00:00:00 2024-01-14 00:00:00 Renae Reese MD: [address], [place] [address] , Ph. [facility] - GC_GCBZW_Gertrude Hutchinson* [id number] [facility] 2023-11-03 00:00:00 2023-11-03 00:00:00 Outpatient GC_GCBZW_Ka dikarela_S [facility] [id number] [facility] 2023-10-29 00:00:00 2023-10-29 00:00:00 Outpatient GC_GCBZW_Ka diyala_S [facility] [id number] [facility] 2023-10-19 16:51:00 2023-10-19 21:23:00 Emergency Gildardo KELLIE HERNANDO [facility] [id number] [facility] 2023-05-12 00:48:00 2023-05-12 04:50:00 Emergency Hardy Cross Wakili S [facility] [id number] [facility] 2023-05-12 00:48:00 2023-05-12 04:50:00 Emergency X NICOLASA LUDWIG [facility] ERT [id number] [facility] Results Test Description Test Time Test Comments Results Result Co mments Source [facility] [id number] 07:32:05* Test Item Value Reference Range Interpretation Comme nts NT-proBNP (test code = 76003-8) <=125 Lab Interpretation (test cod e = 02944-8) Normal [facility] WITH [id number] 07:26:54* Test Item Value Reference Range Interpretation [...] 32.9 g/dL 31.6-35.1 RDW-SD (test code = 22504-5) 43.3 fL 39.0-49.9 RDW-CV (test code = 788-0) 13.3 % 12.0-15.5 PLT (test code = 777-3) 420 See_Comment H [Automated messa ge] The system which generated this result transmitted reference range: 166 - 358 10*3/?L. The reference range was not used to interpret this result as normal/abnormal. MPV (test code = 38701-3) 11.2 fL 9.5-12.9 NRBC/100 WBC (test code = 8508250110) 0.0 See_Comment [Automated Tintri ssage] The system which generated this result transmitted reference range: 0.0 - 10.0 /100 WBCs. The reference range was not used to interpret this result as normal/abnormal. NRBC x10^3 (test code = 9095443869) See_Comment [Automated messa ge] The system which generated this result transmitted reference range: 10*3/?L. The reference range was not used to interpret this result as normal/abnormal. GRAN MAT (NEUT) % (test code = 770-8) 45.6 % IMM GRAN % (test code = 7163716325) 0.40 % LYMPH % (test code = 736-9) 43.7 % MONO % (test code = 5905-5) 7.8 % EOS % (test code = 713-8) 1.9 % BASO % (test code = 706-2) 0.6 % GRAN MAT x10^3(ANC) (test code = 8983594967) 4.95 10*3/uL 1.88-7.09 IMM GRAN x10^3 (test code = 6782793086) 0.04 10*3/uL 0.00-0.06 LYMPH x10^3 (test code = 731-0) 4.73 10*3/uL 1.32-3.29 H MONO x10^3 (test code = 742-7) 0.84 10*3/uL 0.33-0.92 EOS x10^3 (test code = 711-2) 0.21 10*3/uL 0.03-0.39 BASO x10^3 (test code = 704-7) 0.06 10*3/uL 0.01-0.07 Lab Interpretation (test code = 92685-1) Abnormal [facility] [id number] 07:09:13* Test Item Value Reference Range Interpretation Comme nts TROPONIN I (test code = 5733940368) 0.003 ng/mL <=0.034 TAMELA (test code = [...] of biotin. Lab Interpretation (test code = 10749-4) Normal [facility] (26890)2023-05-12 07:09:12* Test Item Value Reference Range Interpretation Comme nts NA (test code = 0893672818) 140 mmol/L 135-145 K (test code = 1154147452) 3.5 mmol/L 3.5-5.0 CL (test code = 5789953971) 106 mmol/L 98-108 CO2 TOTAL (test code = 7196190266) 27 mmol/L 23-31 AGAP (test code = 6043538313) 7 2-16 BUN (test code = 0802822602) 17 mg/dL 7-23 GLUCOSE (test code = 1805762230) 122 mg/dL 70-110 H CREATININE (test code = 9750930042) 0.62 mg/dL 0.50-1.04 TOTAL BILI (test code = 8169983414) 0.2 mg/dL 0.1-1.1 CALCIUM (test code = 7067834605) 9.2 mg/dL 8.6-10.6 T PROTEIN (test code = 4853032957) 7.8 g/dL 6.3-8.2 ALBUMIN (test code = 6876098305) 4.0 g/dL 3.5-5.0 ALK PHOS (test code = 5478647617) 106 U/L 34-122 ALTv (test code = 1742-6) 28 U/L 5-35 AST(SGOT) (test code = 5725424185) 27 U/L 13-40 eGFR (test code = 0638615276) 100.3 mL/min/1.73m2 TAMELA (test code = TAMELA) [...] imaging tests). Lab Interpretation (test code = 42296-0) Abnormal [facility] Notes Date/Time Note Provider Source 2023-05-12 04:49:07 [...] noted upon discharge Pt ambulated to the [facility] with steady gait [facility] Vianca Roman RN [facility] 2023-05-12 00:45:55 Formatting of this n ote might be different from the original. Patient arrived ambulatory c/o of shortness of breath that comes and goes the past three weeks with generalized weakness. [facility]
--- NOTE | 2024-10-16 17:28 | RAD REPORT ---
EXAMINATION: US LEFT LOWER EXTREMITY VENOUS DOPPLER CLINICAL INDICATION: HS MAIN posterior thigh PAIN Bed: Y TECHNIQUE: Complete bilateral duplex sonography of the LEFT lower extremity veins was performed. The examination included compression for vein patency, color Doppler imaging and flow augmentation in response to distal compression of the distal external iliac, common femoral, femoral, popliteal, tibi al, and great and small saphenous veins. COMPARISON: No prior exam. FINDINGS: Duplex sonography testing of the veins of the LEFT lower extremity was performed. Color flow imaging shows all veins to be compressible with dawb-sj-yhma color filling. Pulsatile and phasic flow is present within all lower extremity deep and superficial veins examined. IMPRESSION: No evidence of deep venous thrombosis.
--- NOTE | 2024-10-16 17:36 | ER ---
Nurse's Notes [facility] Name: Maria G Ndiaye Age: 53 yrs Sex: Female : 1970 Arrival Date: 10/16/2024 Time: 14:49 Bed 4 Private MD: Diagnosis: Pain in left leg Presentation: 10/16 14:55 Chief complaint: Patient states: she has been having right upper leg pain and swelling ap3 that started yesterday. patient currently rates her pain as a 4/10 on the pain scale. Coronavirus screen: At this time, the client does not indicate any symptoms associated with coronavirus-19. Ebola Screen: No symptoms or risks identified at this time. Initial Sepsis Screen: Does the patient meet any 2 criteria? No. Patient's initial sepsis screen is negative. Does the patient have a suspected source of infection? No. Patient's initial sepsis screen is negative. Risk Assessment: Do you want to hurt yourself or someone else? Patient reports no desire to harm self or others. Onset of symptoms was October 15, 2023. 14:55 Method Of Arrival: Ambulatory ap3 14:55 Acuity: CECILIA 3 ap3 Triage Assessment: 14:58 General: Appears in no apparent distress. Behavior is calm, cooperative, appropriate ap3 for age. Pain: Complains of pain in left hamstring Pain currently is 4 out of 10 on a pain scale. Neuro: Level of Consciousness is awake, alert, obeys commands, Oriented to person, place, time, situation, Appropriate for age. Cardiovascular: Patient's skin is warm and dry. Respiratory: Airway is patent Respiratory effort is even, unlabored, Respiratory pattern is regular, symmetrical. 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 Flu vaccine is not up to date. - Infectious Disease History:: Denies. - Social history:: Smoking status: Patient denies any tobacco usage or history of. Screenin:58 [facility] ED Fall Risk Assessment (Adult) History of falling in the last 3 months, ap3 including since admission No falls in past 3 months (0 pts) Confusion or Disorientation No (0 pts) Intoxicated or Sedated No (0 pts) Impaired Gait No (0 pts) Mobility Assist Device Used No (0 pt) Altered Elimination No (0 pt) Score/Fall Risk Level 0 - 2 = Low Risk Oriented to surroundings, Maintained a safe environment, Educated pt \T\ family on fall prevention, incl call for assistance when getting out of bed, Assessed \T\ reinforced patient's understanding of fall precautions, Hourly rounding (assess needs \T\ fall precautionary measures) done, Used ambulatory aids as needed (educated on \T\ assisted with). Abuse screen: Denies threats or abuse. Nutritional screening: No deficits noted. Tuberculosis screening: No symptoms or risk factors identified. Assessment: 17:21 General: Appears in no apparent distress. Behavior is calm, cooperative. Pain: iw Complains of pain in left leg and left hamstring. Neuro: Level of Consciousness is awake, alert, obeys commands, Oriented to person, place, time, situation, Moves all extremities. Full function. Cardiovascular: Patient's skin is warm and dry. Respiratory: Respiratory effort is even, unlabored, Respiratory pattern is regular. Derm: Musculoskeletal: Swelling present in left leg. Vital Signs: 14:55 BP 150 / 91; Pulse 77; Resp 17; Temp 98; Pulse Ox 98% ; Weight 95.25 kg; Height 5 ft. 4 ap3 in. ; Pain 4/10; 17:21 BP 179 / 90; Pulse 77; Resp 16; Temp 98.1; Pulse Ox 100% on R/A; iw 14:55 Body Mass Index 36.05 (95.25 kg, 162.56 cm) ap3 14:55 Pain Scale: Adult ap3 ED Course: 14:51 Patient arrived in ED. im 14:52 Joselyn Hutchinson FNP-C is PHCP. kb 14:52 Flex Lujan MD is Attending Physician. kb 14:57 Triage completed. ap3 14:58 Arm band placed on right wrist. ap3 16:34 US Extremity Venous Unilateral Ltd In Process Unspecified. EDMS 18:17 Leilani Trujillo, COLETTE is Primary Nurse. iw 18:17 No provider procedures requiring assistance completed. Patient did not have IV access iw during this emergency room visit. Administered Medications: No medications were administered Medication: 17:21 VIS not applicable for this client. iw Outcome: 17:36 Discharge ordered by . juvencio 18:18 Patient left the ED. sb4 18:18 Discharged to home ambulatory, iw 18:18 Condition: good iw 18:18 Discharge instructions given to patient, Instructed on discharge instructions, follow up and referral plans. medication usage, Demonstrated understanding of instructions, follow-up care, medications, Prescriptions given X 2, Signatures: Dispatcher [employer] EDJoselyn Veras, SHOT TUBE MACHINE TENDER-C SHOT TUBE MACHINE TENDER-Leilani Suero, RN RN Lakia Rucker RN RN Georgia Goodrich, PA-C PA-C sb4 Ghada Subramanian
--- NOTE | 2024-10-16 17:36 | EDPHYS ---
Physician Documentation [facility] Name: Maria G Ndiaye Age: 53 yrs Sex: Female : 1970 Arrival Date: 10/16/2024 Time: 14:49 Bed 4 Private MD: VAL Physician Flex Lujan HPI: 10/16 17:39 This 53 yrs old Female presents to ER via Ambulatory with complaints of Leg kb Pain, Leg Swelling. 17:39 PT is a 53 year old female who presents for pain to posterior left thigh that started a kb couple of days ago. Eber worse when she stands from sitting position. 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 Flu vaccine is not up to date. - Infectious Disease History:: Denies. - Social history:: Smoking status: Patient denies any tobacco usage or history of. ROS: 17:39 Constitutional: As per HPI kb Exam: 17:39 Constitutional: This is a well developed, well nourished patient who is awake, alert, kb and in no acute distress. Head/Face: Normocephalic, atraumatic. ENT: Moist Mucous membranes Cardiovascular: Regular rate Respiratory: Respirations even and unlabored. No increased work of breathing. Talking in full sentences Skin: Warm, dry with normal turgor. Normal color. MS/ Extremity: Pulses equal, no cyanosis. Neurovascular intact. Full, normal range of motion. Neuro: Awake and alert, GCS 15, oriented to person, place, time, and situation. Vital Signs: 14:55 BP 150 / 91; Pulse 77; Resp 17; Temp 98; Pulse Ox 98% ; Weight 95.25 kg; Height 5 ft. 4 ap3 in. ; Pain 4/10; 17:21 BP 179 / 90; Pulse 77; Resp 16; Temp 98.1; Pulse Ox 100% on R/A; iw 14:55 Body Mass Index 36.05 (95.25 kg, 162.56 cm) ap3 14:55 Pain Scale: Adult ap3 MDM: 14:52 Medical Screening Exam initiated kb 17:39 Differential diagnosis: dvt, strain. Data reviewed:. Test considered but Not performed: kb X-ray: xray considered but pt has no tenderness, ambulating with steady gait, no known injury. Counseling: I had a detailed discussion with the patient and/or guardian regarding the historical points, exam findings, and any diagnostic results supporting the discharge/admit diagnosis, radiology results, the need for outpatient follow up, a family practitioner, to return to the emergency department if symptoms worsen or persist or if there are any questions or concerns that arise at home. 10/16 14:55 Order name: US Extremity Venous Unilateral Ltd; Complete Time: 17:29 kb Administered Medications: No medications were administered Disposition Summary: 10/16/24 17:36 Discharge Ordered Notes: Location: Home kb Condition: Stable kb Diagnosis - Pain in left leg kb Followup: kb - With: Emergency Department - When: As needed - Reason: Worsening of condition Followup: kb - With: Private Physician - When: 2 - 3 days - Reason: Recheck today's complaints, Continuance of care, Re-evaluation by your physician Discharge Instructions: - Discharge Summary Sheet kb - Musculoskeletal Pain kb - Muscle Strain, [id number]-bg-[id number] kb Forms: - Medication Reconciliation Form kb - Antibiotic Education kb - Prescription Opioid Use kb - Patient Portal Instructions kb - Leadership Thank You Letter Prescriptions: - Diclofenac Sodium 75 mg Oral tablet, delayed release (enteric coated) - take 1 tablet ORAL route 2 times per day As needed; 30 tablet; Refills: 0, kb Product Selection Permitted - orphenadrine citrate 100 mg Oral Tablet Sustained Release - take 1 tablet ORAL route 2 times per day As needed; 20 tablet; Refills: 0, kb Product Selection Permitted Addendum: 10/18/2024 12:44 Co-signature as Attending Physician, Flex Lujan MD I agree with the assessment and c dumont plan of care. Signatures: Dispatcher [employer] Joselyn Giles, DYE PENETRANT TESTING TECHNICIAN-C DYE PENETRANT TESTING TECHNICIAN-Flex iDaz MD MD cha Prokisch, Amanda, RN RN ap3
[2024-10-16 19:41] VITALS: BP 179/90; TEMP 98.1; O2SAT 100
== END 2024-10-16 18:18 | disposition home or self-care (01) ==
LOC: ER 14:49
DX: M79.605 Pain in left leg (principal)
CPT/HCPCS: 93971; 99283

== ENCOUNTER 2024-10-22 17:16 | Emergency (ER) | payer BC ==
--- OUTSIDE RECORDS SUMMARY | 2024-10-22 17:19 | XMS REPORT | Continuity of Care Document ---
Author Name Unknown Address [address] [facility]. [address] [place] [address] [facility]ions hospital[facility] Address [address] [facility] [address] [place] [address] Care Team Providers Care Head Rigger Name Role Phone PCP, PATIENT DOES NOT HAVE A Primary Care Physic paul Unavailable GC_GCBZW_Matthewa_S Attending Clinician HERNANDO Lynch Attending Clinician UnavailHardy Trinidad NP Attending Clinician [phone] Nicolasa Ludwig MD Attending Clinician [phone] NICOLASA LUDWIG Attending Clinician Unavailable MICHAEL_GCBZW_Matthewa_S Admitting Clinician HARDY Hines Admitting Clinician Unavailab le Payers Payer Name Policy Type Policy Number Effective Date Expirati on Date Source SELF-PAY CI [id number] [place] FROM [employer] ([facility]) [id number] 2023 00:00:00 Problems Condition Name Condition Details Condition Category Status Onset Date Resolution Date Last Treatment Date Treating Clinician Comments Source Essential hypertensi on Essential Hypertensi on Problem Active 2023-08 00:00: 00 [facility] Cystocele Cystocele Problem Active 2023-08 00:00: 00 [facility] Abnormal uterine bleeding Abnormal Uterine Bleeding Problem Active 01-23 00:00: 00 [facility] Endometria l polyp Endometria l Polyp Problem Active 01-23 00:00: 00 [facility] Female stress incontinen ce Female Stress Incontinen ce Problem Active 01-13 00:00: 00 [facility] Postmenopa usal bleeding Postmenopa usal Bleeding Problem Active 01-13 00:00: 00 [facility] Menopausal syndrome Menopausal Syndrome Problem Active 01-13 00:00: 00 [facility] Urgent desire to [...] states "I feel crazy in the head" [facility] CEPHALEX IN DRUG INGREDI Active Other-Cmnt 05-12 00:00: 00 [facility] NO KNOWN ALLERGIE S Drug Class Active [facility] Social History Social Habit Start Date Stop Date Quantity Comments Source Gender identity [facility] Sexual orientation [facility] Sex Assigned At 1970 00:00:00 1970 00:00:00 [facility] Smoking Status Start Date Stop Date Source Never Smoker [facility] Tobacco smoking consumption unknown [facility] Medications Ordered Medication Name Filled Medication Name Start Date Stop Date Current Medication? Ordering Clinician Indication Dosage Frequency Signature (SIG) Comments Components Source iopamidol (ISOVUE 370-500 mL) injection 80 mL 05-12 09:30: 00 05-12 09:30 :00 No [id number] 80mL 80 mL, Intravenou s, ONCE, 1 dose, On Fri05/12/23 at 0430, Routine [facility] NaCl 0.9% (NS) bolus infusion 1,000 mL 05-12 08:30: 00 05-12 09:48 :00 No 1000mL at 999 mL/hr, 1,000 mL, IV Infusion, ONCE, 1 dose, On Fri05/12/23 at 0330, ARNULFO [facility] amlodipine 10 mg tablet Take 1 tablet every day by oral route. amlodipine 10 mg tablet Take 1 tablet every day by oral route. No 1 Q1D amlodipine 10 mg tablet Take 1 tablet every day by oral route. [facility] losartan 100 mg tablet Take 1 tablet every day by oral route. losartan 100 mg tablet Take 1 tablet every day by oral route. No 1 Q1D losartan 100 mg tablet Take 1 tablet every day by oral route. [facility] metformin 500 mg tablet Take 1 tablet twice a day by oral route. metformin 500 mg tablet Take 1 tablet twice a day by oral route. No 1 BID metformin 500 mg tablet Take 1 tablet twice a day by oral route. [facility] quetiapine 100 mg tablet Take 1 tablet twice a day by oral route. quetiapine 100 mg tablet Take 1 tablet twice a day by oral route. No 1 BID quetiapine 100 mg tablet Take 1 tablet twice a day by oral route. [facility] Vitamin D Vitamin D No Vitamin D [facility] vitamin K2 vitamin K2 No vitamin K2 [facility] Wellbutrin SR 100 mg tablet, 12 hr sustained-r elease Take 1 tablet twice a day by oral route. Wellbutrin SR 100 mg tablet, 12 hr sustained-r elease Take 1 tablet twice a day by oral route. No 1 BID Wellbutrin SR 100 mg tablet, 12 hr sustained- release Take 1 tablet twice a day by oral route. [facility] Vital Signs Vital Name Observation Time Observation Value Comments S ource BP Diastolic 2024-07-26 00:00:00 85 mm[Hg] [facility] Weight 2024-07-26 00:00:00 204.2 [...] Systolic blood pressure 2023-05-12 09:40:00 165 mm[Hg] [facility] Diastolic blood pressure 2023-05-12 09:40:00 90 mm[Hg] [facility] Heart rate 2023-05-12 09:40:00 74 /min [facility] Oxygen saturation in Arterial blood by Pulse oximetry 2023-05-12 09:40:00 98 /min [facility] Respiratory rate 2023-05-12 09:00:00 17 /min [facility] Body temperature 2023-05-12 05:46:00 37.11 Jania [facility] Body height 2023-05-12 05:46:00 162.6 cm [facility] Body weight 2023-05-12 05:46:00 95.255 kg [facility] BMI 2023-05-12 05:46:00 36.05 kg/m2 [facility] Procedures Procedure Date / Time Performed Performing Clinician Source Hysteroscopy 2024-07-15 00:00:00 Charles Vera edical URINALYSIS 2023-05-12 08:20:00 Hardy Cross Un [facility] EKG-12 LEAD 2023-05-12 07:45:18 Hardy Cross Un [facility] TROPONIN I 2023-05-12 06:01:00 Hardy Cross Un [facility] COMP. METABOLIC PANEL (74690) 2023-05-12 06:01:00 Hardy Cross [facility] CBC WITH DIFF 2023-05-12 06:01:00 [facility] 2023-05-12 06:01:00 Hardy Cross Un [facility] N-TERMINAL PRO-BNP 2023-05-12 06:01:00 Vinod Cross [facility] COVID-19 (ID NOW RAPID TESTING) 2023-05-12 06:01:00 Hardy Cross [facility] NOTICE OF PRIVACY PRACTICES 2023-05-12 05:39:31 Doctor Unassigned, [place] [facility] CONSENT/REFUSAL FOR DIAGNOSIS AND TREATMENT 2023-05-12 05:38:30 Doctor Unassigned, [place] [facility] Hysterectomy [facility] Cholecystectomy (Gallbladder) [facility] Medical Encounters Start Date/Time End Date/Time Encounter Type Admission Type Attending [facility] Care Department Encounter ID Source 2021-09-25 12:28:10 Outpatient IBNS IBNS [id number] - [id number] [facility] 2021-09-25 12:21:21 Outpatient IBNS IBNS [id number] - [id number] [facility] 2024-07-26 00:00:00 2024-07-26 00:00:00 MEGAN Sosa: [address], [place] [address] , Ph. [facility]ly [facility] - GC_GCBZW_Gertrude Hutchinson* [id number] [facility] 2024-07-01 00:00:00 2024-07-01 00:00:00 TOMA Roblero: [address], [address], [place] [address] , Ph. [facility] GC_GCBZW_Gertrude Hutchinson* [id number] [facility] 2024-05-27 00:00:00 2024-05-27 00:00:00 MEGAN Sosa: [address], [place] [address] , Ph. [facility] GC_GCBZW_Gertrude Hutchinson* [id number] [facility] 2024-01-23 00:00:00 2024-01-23 00:00:00 Renae Reese MD: [address], [address], [place] [address] , Ph. [facility] - GC_GCBZW_Gertrude Hutchinson* [id number] [facility] 2024-01-14 00:00:00 2024-01-14 00:00:00 Renae Reese MD: [address], [address], [place] [address] , Ph. [facility] - GC_GCBZW_Gertrude Hutchinson* [id number] [facility] 2023-11-03 00:00:00 2023-11-03 00:00:00 Outpatient GC_GCBZW_Ka dikarela_S [facility] [id number] [facility] 2023-10-29 00:00:00 2023-10-29 00:00:00 Outpatient GC_GCBZW_Ka diyala_S [facility] [id number] [facility] 2023-10-19 16:51:00 2023-10-19 21:23:00 Emergency Gildardo KELLIE HERNANDO [facility] [id number] [facility] 2023-05-12 00:48:00 2023-05-12 04:50:00 Emergency Hardy Cross Wakili S [facility] [id number] [facility] 2023-05-12 00:48:00 2023-05-12 04:50:00 Emergency X NICOLASA LUDWIG RUST ERT [id number] [facility] Results Test Description Test Time Test Comments Results Result Co mments Source [facility] [id number] 07:32:05* Test Item Value Reference Range Interpretation Comme nts NT-proBNP (test code = 84009-0) <=125 Lab Interpretation (test cod e = 21048-3) Normal [facility] WITH [id number] 07:26:54* Test Item Value Reference Range Interpretation [...] 32.9 g/dL 31.6-35.1 RDW-SD (test code = 00434-4) 43.3 fL 39.0-49.9 RDW-CV (test code = 788-0) 13.3 % 12.0-15.5 PLT (test code = 777-3) 420 See_Comment H [Automated messa ge] The system which generated this result transmitted reference range: 166 - 358 10*3/?L. The reference range was not used to interpret this result as normal/abnormal. MPV (test code = 34137-2) 11.2 fL 9.5-12.9 NRBC/100 WBC (test code = 0958578351) 0.0 See_Comment [Automated [employer] ssage] The system which generated this result transmitted reference range: 0.0 - 10.0 /100 WBCs. The reference range was not used to interpret this result as normal/abnormal. NRBC x10^3 (test code = 2191760925) See_Comment [Automated messa ge] The system which generated this result transmitted reference range: 10*3/?L. The reference range was not used to interpret this result as normal/abnormal. GRAN MAT (NEUT) % (test code = 770-8) 45.6 % IMM GRAN % (test code = 9916476486) 0.40 % LYMPH % (test code = 736-9) 43.7 % MONO % (test code = 5905-5) 7.8 % EOS % (test code = 713-8) 1.9 % BASO % (test code = 706-2) 0.6 % GRAN MAT x10^3(ANC) (test code = 4189463119) 4.95 10*3/uL 1.88-7.09 IMM GRAN x10^3 (test code = 5245753459) 0.04 10*3/uL 0.00-0.06 LYMPH x10^3 (test code = 731-0) 4.73 10*3/uL 1.32-3.29 H MONO x10^3 (test code = 742-7) 0.84 10*3/uL 0.33-0.92 EOS x10^3 (test code = 711-2) 0.21 10*3/uL 0.03-0.39 BASO x10^3 (test code = 704-7) 0.06 10*3/uL 0.01-0.07 Lab Interpretation (test code = 49625-5) Abnormal [facility] [id number] 07:09:13* Test Item Value Reference Range Interpretation Comme nts TROPONIN I (test code = 4438226285) 0.003 ng/mL <=0.034 TAMELA (test code = [...] of biotin. Lab Interpretation (test code = 26008-0) Normal [facility]OLIC PANEL (38773)2023-05-12 07:09:12* Test Item Value Reference Range Interpretation Comme nts NA (test code = 7583540772) 140 mmol/L 135-145 K (test code = 9171014141) 3.5 mmol/L 3.5-5.0 CL (test code = 5695444454) 106 mmol/L 98-108 CO2 TOTAL (test code = 9216394520) 27 mmol/L 23-31 AGAP (test code = 1823365841) 7 2-16 BUN (test code = 5521585498) 17 mg/dL 7-23 GLUCOSE (test code = 2794304952) 122 mg/dL 70-110 H CREATININE (test code = 6196605944) 0.62 mg/dL 0.50-1.04 TOTAL BILI (test code = 5249902140) 0.2 mg/dL 0.1-1.1 CALCIUM (test code = 7138857704) 9.2 mg/dL 8.6-10.6 T PROTEIN (test code = 5961765050) 7.8 g/dL 6.3-8.2 ALBUMIN (test code = 8869880109) 4.0 g/dL 3.5-5.0 ALK PHOS (test code = 9982283563) 106 U/L 34-122 ALTv (test code = 1742-6) 28 U/L 5-35 AST(SGOT) (test code = 5583213103) 27 U/L 13-40 eGFR (test code = 0980419788) 100.3 mL/min/1.73m2 TAMELA (test code = TAMELA) [...] imaging tests). Lab Interpretation (test code = 98028-5) Abnormal [facility] Notes Date/Time Note Provider Source 2023-05-12 04:49:07 [...] noted upon discharge Pt ambulated to the [facility] with steady gait [facility] Vianca Roman RN [facility] 2023-05-12 00:45:55 Formatting of this n ote might be different from the original. Patient arrived ambulatory c/o of shortness of breath that comes and goes the past three weeks with generalized weakness. [facility]
[2024-10-22] MEDS ORDERED: MORPHINE 4 MG/ML SYR ONE ×2 (17:57→19:41)
[2024-10-22] MEDS ORDERED: ONDANSETRON 4 MG/2 ML VIAL ONE (17:57)
[2024-10-22] MEDS ORDERED: NA CHLORIDE 0.9% 1,000 ML ONE (17:57)
[2024-10-22 18:17] LABS: Sqamous Epithelial <5 /HPF (None Seen); Urine Bacteria None Seen /HPF (<20); Urine Bilirubin NEGATIVE (Negative); Urine Blood 1+ (Negative); Urine Clarity Clear (Clear); Urine Color Light-Yellow (Yellow); Urine Crystals Unidentified Few /HPF (None Seen); Urine Culture Reflex Order NOT NEEDED; Urine Glucose NEGATIVE (Negative); Urine Ketones NEGATIVE (Negative); Urine Microscopic Reflex YN ORDER UMIC; Urine Mucus Slight /HPF (None Seen); Urine Nitrite NEGATIVE (Negative); Urine Protein NEGATIVE (Negative); Urine RBC <5 /HPF (None Seen); Urine Urobilinogen Normal (Normal); Urine WBC <5 /HPF (<5); Urine pH 5.5 (5.0-7.0)
[2024-10-22 18:31] LABS: Absolute Basophils 0.1 K/uL (0-0.5); Absolute Eosinophils 0.2 K/uL (0-0.5); Absolute Lymphocytes (CBC) 3.8 K/uL (0.7-4.9); Absolute Monocytes 0.6 K/uL (0.1-1.3); Albumin 3.6 g/dL (3.4-5.0); Albumin/Globulin Ratio 0.8 (1.1-1.8); Anion Gap 6.6 mEq/L (5.0-15.0); Basophils % 0.7 % (0-1.3); Bilirubin Total 0.4 mg/dL (0.2-1.0); Eosinophils % 2.2 % (0-4.4); Globulin 4.7 g/dL (2.3-3.5); Hematocrit 37.5 % (36.0-45.0); Hemoglobin 12.5 g/dL (12.0-15.0); Lymphocytes % 49.4 % (15.3-44.8); MCH 29.1 pg (27.0-35.0); MCHC 33.3 g/dL (32.0-36.0); MCV 87.4 fL (80-100); MPV 8.2 fL (7.6-11.3); Monocytes % 8.1 % (3.3-12.3); Neutrophils % 39.6 % (41.7-73.7); Nucleated Red Blood Cells % 0.2 % (0-0); Platelets 458 thou/uL (152-406); Potassium 3.6 mEq/L (3.5-5.1); Protein, Total 8.3 g/dL (6.4-8.2); Red Cell Distribution Width 14.1 % (12.1-15.2)
--- NOTE | 2024-10-22 19:36 | RAD REPORT ---
EXAMINATION: CT ABDOMEN AND PELVIS WITH CONTRAST CLINICAL INDICATION: Female, 53 years old.ABD PAIN TECHNIQUE: CT abdomen and pelvis was performed, after the administration of IV contrast, as per [facility] protocol. Axial, sagittal and coronal reconstructions were obtained. One or more of the following dose reduction techniques were used: Automated exposure control, adjustment of the mA and/o r kV according to patient size, and/or iterative reconstruction. Unless otherwise specified, incidental findings do not require dedicated imaging follow-up. [id number]. COMPARISON: 06/03/2024 FINDINGS: LOWER CHEST: No acute process identified.No significant pericardial effusion. UPPER GI: No significant abnormality. LIVER: Minimal intrahepatic biliary duct dilatation. No focal mass. GALLBLADDER/BILE DUCTS: Cholecystectomy. Mild extra-hepatic biliary ductal dilatation is likely relat ed to the post-cholecystectomy state. Consider correlating with LFT's.? PANCREAS: No mass, ductal dilation, or pete-pancreatic fluid. SPLEEN: Unremarkable. ADRENALS: No adrenal masses. KIDNEYS AND URETERS: No hydronephrosis.No suspicious renal mass.No renal calculi. ABDOMINAL AORTA AND OTHER VESSELS: Normal caliber aorta and IVC. PERITONEUM: No abnormal free fluid. No free air. Small low-density cystic structure along the right u pper quadrant at the omentum measures 2.1 cm and is unchanged. This is of doubtful significance. LYMPH NODES: No pathologic lymphadenopathy. ABDOMINAL WALL: Small fat containing umbilical hernia. SMALL BOWEL/COLON: Small bowel has normal course and caliber. No colonic wall thickening or pericolon ic inflammatory changes.Normal appendix. Moderate diverticulosis without diverticulitis. Nonspecific fluid present within the small bowel which can represent a mild gastroenteritis. URINARY BLADDER: Underdistended but grossly unremarkable. REPRODUCTIVE ORGANS: No pathologic process. MUSCULOSKELETAL: No acute or suspicious osseous abnormality. ADDITIONAL FINDINGS: None. IMPRESSION: No definite acute findings within the abdomen or pelvis. Mild distal small bowel fluid can be seen wi th a gastroenteritis.
--- NOTE | 2024-10-22 19:39 | ER ---
Nurse's Notes [facility] Name: Maria G Ndiaye Age: 53 yrs Sex: Female : 1970 Arrival Date: 10/22/2024 Time: 17:16 Bed 12 Private MD: Diagnosis: Abdominal pain Presentation: 10/22 17:30 Chief complaint: Patient states: RUQ abdominal pain, vomiting and bright red blood in cm10 stools onset 1 week. Coronavirus screen: Client denies travel out of the [place] in the last 14 days. Ebola Screen: Patient denies travel to an Ebola-affected area in the 21 days before illness onset. Initial Sepsis Screen: Does the patient meet any 2 criteria? No. Patient's initial sepsis screen is negative. Does the patient have a suspected source of infection? No. Patient's initial sepsis screen is negative. Risk Assessment: Do you want to hurt yourself or someone else? Patient reports no desire to harm self or others. Onset of symptoms was October 15, 2024. 17:30 Method Of Arrival: Ambulatory cm10 17:30 Acuity: CECILIA 3 cm10 Triage Assessment: 17:32 General: Appears in no apparent distress. comfortable, Behavior is calm, cooperative. cm10 Pain: Complains of pain in right upper quadrant Pain currently is 7 out of 10 on a pain scale. Neuro: No deficits noted. Level of Consciousness is awake, alert, obeys commands, Oriented to person, place, time, situation, Appropriate for age. Respiratory: No deficits noted. Airway is patent Respiratory effort is even, unlabored, Respiratory pattern is regular, symmetrical. 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 - Infectious Disease History:: Denies. - Social history:: Smoking status: Patient denies any tobacco usage or history of. Screenin:56 [facility] ED Fall Risk Assessment (Adult) History of falling in the last 3 months, me1 including since admission No falls in past 3 months (0 pts) Confusion or Disorientation No (0 pts) Intoxicated or Sedated No (0 pts) Impaired Gait No (0 pts) Mobility Assist Device Used No (0 pt) Altered Elimination No (0 pt) Score/Fall Risk Level 0 - 2 = Low Risk Maintained a safe environment, Provided non-skid footwear, Hourly rounding (assess needs \T\ fall precautionary measures) done. Abuse screen: Denies threats or abuse. Nutritional screening: No deficits noted. Tuberculosis screening: No symptoms or risk factors identified. Assessment: 18:56 General: Appears uncomfortable, well groomed, well developed, well nourished, Behavior me1 is calm, cooperative, appropriate for age, Reports RUQ abdominal pain, vomiting and bright red blood in stools onset 1 week. Pain: Complains of pain in right upper quadrant Pain does not radiate. Pain currently is 7 out of 10 on a pain scale. Quality of pain is described as sharp, Pain began one week ago. Neuro: Level of Consciousness is awake, alert, obeys commands, Oriented to person, place, time, situation, Appropriate for age. Cardiovascular: Patient's skin is warm and dry. Respiratory: Airway is patent Respiratory effort is even, unlabored, Respiratory pattern is regular, symmetrical. GI: Abdomen is round Bowel sounds present X 4 quads. Abd is soft X 4 quads Reports upper abdominal pain, bloody stool, nausea, vomiting, since one week ago. : No signs and/or symptoms were reported regarding the genitourinary system. EENT: No signs and/or symptoms were reported regarding the EENT system. Derm: Skin is intact, is healthy with good turgor, Skin is pink, warm \T\ dry. Musculoskeletal: No signs and/or symptoms reported regarding the musculoskeletal system. Vital Signs: 17:32 BP 147 / 74; Pulse 73; Resp 16; Temp 97.9(O); Pulse Ox 97% on R/A; Weight 95.25 kg; cm10 Height 5 ft. 4 in. ; Pain 7/10; 18:00 BP 143 / 84; Pulse 67; Resp 16; Pulse Ox 98% ; me1 19:00 BP 160 / 84; Pulse 87; Resp 16; Pulse Ox 100% ; me1 19:30 BP 167 / 82; Pulse 79; Resp 16; Pulse Ox 100% ; me1 17:32 Body Mass Index 36.05 (95.25 kg, 162.56 cm) cm10 17:32 Pain Scale: Adult cm10 ED Course: 17:18 Patient arrived in ED. im 17:22 Aleksandar Dobson MD is Attending Physician. sp3 17:31 Triage completed. cm10 17:31 Arm band placed on left wrist. Patient placed in an exam room, on a stretcher. cm10 17:59 Sis Varela, RN is Primary Nurse. me1 18:09 Initial lab(s) drawn, by me, sent to lab. Urine collected: clean catch specimen. cm10 Inserted saline lock: 20 gauge in right antecubital area, using aseptic technique. Blood collected. Flushed with 10 mL NS. 18:09 CBC with Diff Sent. cm10 18:09 CMP Sent. cm10 18:09 Urinalysis w/ reflexes Sent. cm10 18:55 CT Abd/Pelvis - IV Contrast Only In Process Unspecified. EDMS 18:56 Patient has correct armband on for positive identification. Bed in low position. Call me1 light in reach. Side rails up X2. Provided Education on: POC. Verbalized understanding.. Client placed on continuous cardiac and pulse oximetry monitoring. NIBP monitoring applied. Pulse ox on. NIBP on. 18:56 No provider procedures requiring assistance completed. me1 19:53 IV discontinued, intact, bleeding controlled, No redness/swelling at site. Pressure me1 dressing applied. Administered Medications: 18:09 Drug: Ondansetron IVP 4 mg IVP once; over 2 minutes Route: IVP; Site: right antecubital;cm10 19:22 Follow up: Response: No adverse reaction; Nausea is decreased me1 18:09 Drug: NS 0.9% IV 1000 ml IV at 1 bolus Per protocol; to be given as a bolus over 60 cm10 minutes Route: IV; Rate: 1 bolus; Site: right antecubital; 19:22 Follow up: Response: No adverse reaction; IV Status: Completed infusion; IV Intake: me1 1000ml 18:10 Drug: morphine IVP or IV 4 mg IVP once over 4 mins Route: IVP; Infused Over: 4 mins; cm10 Site: right antecubital; 19:22 Follow up: Response: No adverse reaction; Pain is decreased me1 19:49 Drug: morphine IVP or IV 4 mg IVP once over 4 mins Route: IVP; Infused Over: 4 mins; me1 Site: right antecubital; 19:49 Follow up: Response: No adverse reaction; Pain is decreased me1 Medication: 18:56 VIS not applicable for this client. me1 Intake: 19:22 IV: 1000ml; Total: 1000ml. me1 Outcome: 19:39 Discharge ordered by . sp3 19:53 Discharged to home ambulatory, with significant other, me1 19:53 Condition: stable 19:53 Discharge instructions given to patient, significant other, Instructed on discharge instructions, follow up and referral plans. medication usage, Demonstrated understanding of instructions, follow-up care, medications, Prescriptions given X 3, 19:54 Patient left the ED. me1 Signatures: Dispatcher [employer] EDMS Aleksandar Dobson MD MD sp3 Ghada Subramanian Clarissa, RN RN cm10 Sis Varela RN RN me1 Corrections: (The following items were deleted from the chart) 18:55 17:30 Chief complaint: Patient states: RUQ abdominal pain, vomiting and bright red me1 blood in stools onset 1 week. cm10 18:56 17:30 Chief complaint: Patient states: RUQ abdominal pain, vomiting and bright red me1 blood in stools onset 1 week. me1
--- NOTE | 2024-10-22 19:40 | EDPHYS ---
Physician Documentation [facility] Name: Maria G Ndiaye Age: 53 yrs Sex: Female : 1970 Arrival Date: 10/22/2024 Time: 17:16 Bed 12 Private MD: ED Physician Aleksandar Dobson HPI: 10/22 18:56 This 53 yrs old Female presents to ER via Ambulatory with complaints of sp3 Abdominal Pain. 18:56 52-year-old female with history of anemia, prior diverticulitis, status sp3 postcholecystectomy presents to the ED with epigastric pain x2 days similar to her prior abdominal pain episodes in the past. She also states she has had bright red blood mild mixed with stool for 2 days. She denies any vomiting or diarrhea or fever. Review systems negative for headache, URI symptoms, chest pain, shortness of breath, symptoms, PHYSIOTHERAPY PRACTICE MANAGER symptoms, rash, or any other signs or symptoms on ROS at this time.. 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 - Infectious Disease History:: Denies. - Social history:: Smoking status: Patient denies any tobacco usage or history of. ROS: 18:57 Constitutional: Negative for fever, chills, and weight loss, Eyes: Negative for injury, sp3 pain, redness, and discharge, ENT: Negative for injury, pain, and discharge, Neck: Negative for injury, pain, and swelling, Cardiovascular: Negative for chest pain, palpitations, and edema, Respiratory: Negative for shortness of breath, cough, wheezing, and pleuritic chest pain, Back: Negative for injury and pain, MS/Extremity: Negative for injury and deformity, Skin: Negative for injury, rash, and discoloration, Neuro: Negative for headache, weakness, numbness, tingling, and seizure, Psych: Negative for depression, anxiety, suicide ideation, homicidal ideation, and hallucinations, Allergy/Immunology: Negative for hives, rash, and allergies, Endocrine: Negative for neck swelling, polydipsia, polyuria, polyphagia, and marked weight changes, 18:57 All other systems are negative, Exam: 18:58 Constitutional: This is a well developed, well nourished patient who is awake, alert, sp3 and in no acute distress. Head/Face: Normocephalic, atraumatic. Eyes: Pupils equal round and reactive to light, extra-ocular motions intact. Lids and lashes normal. Conjunctiva and sclera are non-icteric and not injected. Cornea within normal limits. Periorbital areas with no swelling, redness, or edema. ENT: Nares patent. No nasal discharge, no septal abnormalities noted. External auditory canals are clear. Oropharynx with no redness, swelling, or masses, exudates, or evidence of obstruction, uvula midline. Mucous membranes moist. Neck: Trachea midline, no thyromegaly or masses palpated, and no cervical lymphadenopathy. Supple, full range of motion without nuchal rigidity, or vertebral point tenderness. No Meningismus. Chest/axilla: Normal chest wall appearance and motion. Nontender with no deformity. No lesions are appreciated. Cardiovascular: Regular rate and rhythm with a normal S1 and S2. No gallops, murmurs, or rubs. Normal PMI, no JVD. No pulse deficits. Respiratory: Lungs have equal breath sounds bilaterally, clear to auscultation and percussion. No rales, rhonchi or wheezes noted. No increased work of breathing, no retractions or nasal flaring. Back: No spinal tenderness. No costovertebral tenderness. Full range of motion. Skin: Warm, dry with normal turgor. Normal color with no rashes, no lesions, and no evidence of cellulitis. MS/ Extremity: Pulses equal, no cyanosis. Neurovascular intact. Full, normal range of motion. Neuro: Awake and alert, GCS 15, oriented to person, place, time, and situation. Cranial nerves II-XII grossly intact. Motor strength 5/5 in all extremities. Sensory grossly intact. Cerebellar exam normal. Normal gait. Psych: Awake, alert, with orientation to person, place and time. Behavior, mood, and affect are within normal limits. 18:58 Abdomen/GI: Patient with diffuse abdominal pain without peritoneal signs, rebound or guarding. Vital signs are normal., Vital Signs: 17:32 BP 147 / 74; Pulse 73; Resp 16; Temp 97.9(O); Pulse Ox 97% on R/A; Weight 95.25 kg; cm10 Height 5 ft. 4 in. ; Pain 7/10; 18:00 BP 143 / 84; Pulse 67; Resp 16; Pulse Ox 98% ; me1 19:00 BP 160 / 84; Pulse 87; Resp 16; Pulse Ox 100% ; me1 19:30 BP 167 / 82; Pulse 79; Resp 16; Pulse Ox 100% ; me1 17:32 Body Mass Index 36.05 (95.25 kg, 162.56 cm) cm10 17:32 Pain Scale: Adult cm10 MDM: 17:40 Medical Screening Exam initiated sp3 18:59 Data reviewed: vital signs, nurses notes, old medical records, lab test result(s), sp3 radiologic studies. ED course: 53-year-old female with multiple Sujit pain episodes in the past, diverticulitis hypertension now with epigastric and diffuse abdominal pain without peritoneal signs. Differential diagnosis includes functional abdominal pain, gastritis, pancreatitis, colitis, UTI, pyelonephritis, among others. I am not highly suspicious of aortic pathology, PHYSIOTHERAPY PRACTICE MANAGER pathology or any other critical process including sepsis and shock. Laboratory values are all within normal limits including UA. CT scan of the abdomen pelvis is pending. IV morphine and ondansetron and normal saline for symptomatic control. If workup negative we will safely discharge patient home with PCP follow-up.. 19:39 ED course: CT scan also negative. We will safely discharge patient home on Bentyl sp3 ondansetron and tramadol.. 10/22 17:41 Order name: CBC with Diff; Complete Time: 18:33 sp3 10/22 17:41 Order name: CMP; Complete Time: 18:33 sp3 10/22 17:41 Order name: Lipase; Complete Time: 18:33 sp3 10/22 17:41 Order name: Urinalysis w/ reflexes; Complete Time: 18:33 sp3 10/22 17:41 Order name: CT Abd/Pelvis - IV Contrast Only; Complete Time: 19:39 sp3 10/22 17:41 Order name: IV Saline Lock; Complete Time: 18:09 sp3 10/22 17:41 Order name: Labs collected and sent; Complete Time: 18:09 sp3 Administered Medications: 18:09 Drug: Ondansetron IVP 4 mg IVP once; over 2 minutes Route: IVP; Site: right antecubital;cm10 19:22 Follow up: Response: No adverse reaction; Nausea is decreased me1 18:09 Drug: NS 0.9% IV 1000 ml IV at 1 bolus Per protocol; to be given as a bolus over 60 cm10 minutes Route: IV; Rate: 1 bolus; Site: right antecubital; 19:22 Follow up: Response: No adverse reaction; IV Status: Completed infusion; IV Intake: me1 1000ml 18:10 Drug: morphine IVP or IV 4 mg IVP once over 4 mins Route: IVP; Infused Over: 4 mins; cm10 Site: right antecubital; 19:22 Follow up: Response: No adverse reaction; Pain is decreased me1 19:49 Drug: morphine IVP or IV 4 mg IVP once over 4 mins Route: IVP; Infused Over: 4 mins; me1 Site: right antecubital; 19:49 Follow up: Response: No adverse reaction; Pain is decreased me1 Disposition Summary: 10/22/24 19:39 Discharge Ordered Notes: Location: Home sp3 Condition: Stable sp3 Diagnosis - Abdominal pain sp3 Followup: sp3 - With: Private Physician - When: Upon discharge from the Emergency Department - Reason: Continuance of care Discharge Instructions: - Discharge Summary Sheet sp3 - Abdominal Pain, Adult sp3 Forms: - Medication Reconciliation Form sp3 - Antibiotic Education sp3 - Prescription Opioid Use sp3 - Patient Portal Instructions sp3 - Leadership Thank You Letter sp3 Prescriptions: - Tramadol 50 mg Oral Tablet - take 1 tablet ORAL route every 8 hours as needed; 12 tablet; Refills: 0, sp3 Product Selection Permitted - dicyclomine 10 mg Oral capsule - take 2 capsules ORAL route 3 times per day; 20 capsule; Refills: 0, Product sp3 Selection Permitted - ondansetron 8 mg Oral Tablet,disintegrating - take 1 tablet ORAL route every 12 hours; 15 tablet; Refills: 0, Product sp3 Selection Permitted Signatures: Dispatcher [employer] Aleksandar Kim MD MD sp3 Anat Shelton RN RN cm10 Sis Varela RN RN me1 Corrections: (The following items were deleted from the chart) 17:42 17:42 CBC+H.LAB.BRZ ordered. EDMS EDMS 17:42 17:42 COMPREHENSIVE METABOLIC PANEL+C.LAB.BRZ ordered. EDMS EDMS 17:42 17:42 LIPASE+C.LAB.BRZ ordered. EDMS EDMS 17:42 17:42 Urinalysis+U.LAB.BRZ ordered. EDMS EDMS 17:42 17:42 Abdomen Pelvis W Con+CT.RAD.BRZ ordered. EDMS EDMS 18:57 18:56 52-year-old female with history of anemia, prior diverticulitis, status sp3 postcholecystectomy presents to the ED with epigastric pain x2 days similar to her prior abdominal pain episodes in the past. She denies any vomiting or diarrhea or fever. Review systems negative for headache, URI symptoms, chest pain, shortness of breath, symptoms, PHYSIOTHERAPY PRACTICE MANAGER symptoms, rash, bleeding or any other signs or symptoms on ROS at this time.. sp3
[2024-10-22 20:27] VITALS: TEMP 97.9
[2024-10-22 20:30] VITALS: O2SAT 100
[2024-10-22 20:32] VITALS: BP 167/82
== END 2024-10-22 19:54 | disposition home or self-care (01) ==
LOC: ER 17:16
DX: R10.9 Unspecified abdominal pain (principal); I10 Essential (primary) hypertension; Z88.8 Allergy status to other drugs, medicaments and biological substances
CPT/HCPCS: 96361; 85025; 81001; 36415; 83690; 80053; 74177; 96375; 96374; 99284; Q9967; J2405; J7030

== ENCOUNTER 2025-06-04 09:43 | Emergency (ER) | payer BC ==
[2025-06-04 10:14] LABS: Absolute Lymphocytes (CBC) 2.7 K/uL (0.7-4.9); Hematocrit 34.7 % (36.0-45.0); Hemoglobin 11.5 g/dL (12.0-15.0); MCH 28.1 pg (27.0-35.0); MCHC 33.1 g/dL (32.0-36.0); MCV 84.9 fL (80-100); MPV 8.4 fL (7.6-11.3); Nucleated RBC Absolute Count 0.0 (0-0); Nucleated Red Blood Cells % 0.0 % (0-0); RBC Red Blood Cell Count 4.09 M/uL (3.86-4.86); White Blood Count 8.90 thou/uL (4.3-10.9)
--- NOTE | 2025-06-04 10:17 | RAD REPORT ---
EXAMINATION: ONE VIEW CHEST XR CLINICAL INDICATION: DYSPNEA TECHNIQUE: Frontal chest projection is submitted. Examination is limited by patient positioning and t echnique. COMPARISON: 09/29/2023 FINDINGS: Mild interstitial prominence, similar to prior study. The heart is mildly enlarged in size. No displa augustin fractures identified. IMPRESSION: No acute intrathoracic abnormalities.
[2025-06-04 10:31] LABS: Anion Gap 8.6 mEq/L (5.0-15.0); BUN Blood Urea Nitrogen 12.0 mg/dL (7-18); Glucose Level 113.0 mg/dL (74-106); NT PRO-BNP 23.0 pg/mL (<125); Potassium 3.6 mEq/L (3.5-5.1); Troponin High Sensitivity 3.9 pg/mL (<58.9)
--- NOTE | 2025-06-04 11:01 | RAD REPORT ---
EXAMINATION: CTA CHEST PE CLINICAL INDICATION: DYSPNEA TECHNIQUE: This examination was performed according to an angiographic protocol with 3D post-processi ng. This involves 3D reconstructions, MIPs, volume rendered images and/or shaded surface rendering. One or more of the following dose reduction techniques were used: Automated exposure control, adjustm ent of the mA and/or kV according to patient size, and/or iterative reconstruction. Unless otherwise specified, incidental findings do not require dedicated imaging follow-up. COMPARISON: 09/12/2017 FINDINGS: Small nodules are present in the thyroid gland. PULMONARY ARTERIES: Normal caliber. No evidence of pulmonary emboli to the subsegmental level. THORACIC AORTA: Normal caliber and configuration. LUNGS: Mild interstitial pulmonary edema is possible. No focal consolidation. PLEURA: No pleural effusion. No pneumothorax. MEDIASTINUM AND LYMPH NODES: No mediastinal mass or fluid collection. Normal size mediastinal, hilar, and axillary lymph nodes. OSSEOUS STRUCTURES AND CHEST WALL: Intact. UPPER ABDOMEN: Cholecystomy. IMPRESSION: No evidence of pulmonary emboli to the subsegmental level. Mild interstitial pulmonary edema is possible.
--- OUTSIDE RECORDS SUMMARY | 2025-06-04 11:02 | XMS REPORT | Continuity of Care Document ---
Author Name Unknown Address [address] [place] [address] [address] [place] [address] [facility] Address [address] [place] [address] [address] [place] [address] Care Team Providers Care Director Of Grants Name Role Phone PCP, PATIENT DOES NOT HAVE A Primary Care Physic paul Unavailable HERNANDO HOPKINS Attending Clinician Unavaila Hardy Younger NP Attending Clinician [phone] Nicolasa Ludwig MD Attending Clinician [phone] NICOLASA LUDWIG Attending Clinician Unavailable HARDY CROSS Admitting Clinician Unavailab le Payers Payer Name Policy Type Policy Number Effective Date Expirati on Date Source SELF-PAY CI [id number] Problems Condition Name Condition Details Condition Category [...] states "I feel crazy in the head" [facility] CEPHALEX IN DRUG INGREDI Active Other-Cmnt 05-12 00:00: 00 [facility] NO KNOWN ALLERGIE S Drug Class Active [facility] Social History Social Habit Start Date Stop Date Quantity Comments Source Gender identity [facility] Sexual orientation U [facility] Sex Assigned At 1970 00:00:00 1970 00:00:00 [facility] Smoking Status Start Date Stop Date Source Tobacco smoking consumption unknown [facility] Never Smoker [facility] Medical Medications Ordered Medication Name Filled Medication Name Start Date Stop Date Current Medication? Ordering Clinician Indication Dosage Frequency Signature (SIG) Comments Components Source iopamidol (ISOVUE 370-500 mL) injection 80 mL 05-12 09:30: 00 05-12 09:30 :00 No [id number] 80mL 80 mL, Intravenou s, ONCE, 1 dose, On Fri05/12/23 at 0430, Routine [facility] NaCl 0.9% (NS) bolus infusion 1,000 mL 05-12 08:30: 00 05-12 09:48 :00 No 1000mL at 999 mL/hr, 1,000 mL, IV Infusion, ONCE, 1 dose, On Fri05/12/23 at 0330, ARNULFO [facility] amlodipine 10 mg tablet Take 1 tablet every day by oral route. amlodipine 10 mg tablet Take 1 tablet every day by oral route. No 1 Q1D amlodipine 10 mg tablet Take 1 tablet every day by oral route. [facility] losartan 100 mg tablet Take 1 tablet every day by oral route. losartan 100 mg tablet Take 1 tablet every day by oral route. No 1 Q1D losartan 100 mg tablet Take 1 tablet every day by oral route. [facility] metformin 500 mg tablet Take 1 tablet twice a day by oral route. metformin 500 mg tablet Take 1 tablet twice a day by oral route. No 1 BID metformin 500 mg tablet Take 1 tablet twice a day by oral route. [facility] quetiapine 100 mg tablet Take 1 tablet twice a day by oral route. quetiapine 100 mg tablet Take 1 tablet twice a day by oral route. No 1 BID quetiapine 100 mg tablet Take 1 tablet twice a day by oral route. [facility] Vitamin D Vitamin D No Vitamin D [facility] vitamin K2 vitamin K2 No vitamin K2 [facility] Wellbutrin SR 100 mg tablet, 12 hr sustained-r elease Take 1 tablet twice a day by oral route. Wellbutrin SR 100 mg tablet, 12 hr sustained-r elease Take 1 tablet twice a day by oral route. No 1 BID Wellbutrin SR 100 mg tablet, 12 hr sustained- release Take 1 tablet twice a day by oral route. [facility] Vital Signs Vital Name Observation Time [...] Systolic blood pressure 2023-05-12 09:40:00 165 mm[Hg] [facility] Diastolic blood pressure 2023-05-12 09:40:00 90 mm[Hg] [facility] Heart rate 2023-05-12 09:40:00 74 /min [facility] Oxygen saturation in Arterial blood by Pulse oximetry 2023-05-12 09:40:00 98 /min [place] [facility] Respiratory rate 2023-05-12 09:00:00 17 /min [facility] Body temperature 2023-05-12 05:46:00 37.11 Jania [facility] Body height 2023-05-12 05:46:00 162.6 cm [facility] Body weight 2023-05-12 05:46:00 95.255 kg [facility] BMI 2023-05-12 05:46:00 36.05 kg/m2 [facility] Procedures Procedure Date / Time Performed Performing Clinician Source Hysteroscopy 2024-07-15 00:00:00 Charles M edical URINALYSIS 2023-05-12 08:20:00 [facility] 2023-05-12 07:45:18 Hardy Cross Un [facility] TROPONIN I 2023-05-12 06:01:00 Hardy Cross Un [facility] COMP. METABOLIC PANEL ([id number]) 2023-05-12 06:01:00 Hardy Cross [facility] CBC WITH DIFF 2023-05-12 06:01:00 [facility] D-DIMER 2023-05-12 06:01:00 Hardy Cross [facility] N-TERMINAL PRO-BNP 2023-05-12 06:01:00 Vinod Cross [facility] COVID-19 (ID NOW RAPID TESTING) 2023-05-12 06:01:00 Hardy Cross [facility] NOTICE OF PRIVACY PRACTICES 2023-05-12 05:39:31 Doctor Unassigned, [place] [facility] CONSENT/REFUSAL FOR DIAGNOSIS AND TREATMENT 2023-05-12 05:38:30 Doctor Unassigned, [place] [facility] Hysterectomy [facility] Cholecystectomy (Gallbladder) [facility] Encounters Start Date/Time End Date/Time Encounter Type Admission Type Attending Clinicians Care Facility Care Department Encounter ID Source 2021-09-25 12:28:10 Outpatient IBNS IBNS [id number] - [id number] [facility] 2021-09-25 12:21:21 Outpatient IBNS IBNS [id number] - [id number] [facility] 2024-07-26 00:00:00 2024-07-26 00:00:00 Arminda Gramajo PA: [address], [address], [place] [id number] , Ph. Replaced by [facility] - GC_GCBZW_Gertrude Hutchinson* [id number] [facility] 2024-07-01 00:00:00 2024-07-01 00:00:00 TOMA Roblero: [address], [address], [place] [id number] , Ph. Replaced by [facility] - GC_GCBZW_[facility]ude [facility]* [id number] [facility] 2024-05-27 00:00:00 2024-05-27 00:00:00 MEGAN Sosa: [address], [address], [place] [id number] , Ph. Replaced by [facility] - GC_GCBZW_[facility]* [id number] [facility] 2024-01-23 00:00:00 2024-01-23 00:00:00 Renae Reese MD: [address], [address], [place] [id number] , Ph. Replaced by [facility] - GC_GCBZW_[facility]* [id number] [facility] 2024-01-14 00:00:00 2024-01-14 00:00:00 Renae Reese MD: [address], [address], [place] [id number] , Ph. Replaced by [facility] - GC_GCBZW_Gertrude [facility]* [id number] [facility] 2023-10-19 16:51:00 2023-10-19 21:23:00 Emergency HERNANDO [facility]ENT [facility] [id number] 2023-05-12 00:48:00 2023-05-12 04:50:00 Emergency Hardy Cross [place] [facility] [id number] [facility] 2023-05-12 00:48:00 2023-05-12 04:50:00 Emergency X NICOLASA LUDWIG [facility] ERT [id number] [facility] Results Test Description Test Time Test Comments Results Result Co mments Source [facility] [id number] 07:32:05* Test Item Value Reference Range Interpretation Comme nts NT-proBNP (test code = 43355-7) <=125 Lab Interpretation (test cod e = 11693-8) [facility] WITH [id number] 07:26:54* Test Item Value Reference Range Interpretation Comme nts WBC (test code = 6690-2) 10.83 See_Comment [Automated [employer]] The system which generated this result transmitted reference range: 4.30 - 11.10 10*3/?L. The reference range was not used to interpret this result as normal/abnormal. RBC (test code = 789-8) 4.11 See_Comment [Automated [employer]] The system which generated this result transmitted [...] 32.9 g/dL 31.6-35.1 RDW-SD (test code = 79279-3) 43.3 fL 39.0-49.9 RDW-CV (test code = 788-0) 13.3 % 12.0-15.5 PLT (test code = 777-3) 420 See_Comment H [Automated messa ge] The system which generated this result transmitted reference range: 166 - 358 10*3/?L. The reference range was not used to interpret this result as normal/abnormal. MPV (test code = 82623-1) 11.2 fL 9.5-12.9 NRBC/100 WBC (test code = 4458786751) 0.0 See_Comment [Automated me ssage] The system which generated this result transmitted reference range: 0.0 - 10.0 /100 WBCs. The reference range was not used to interpret this result as normal/abnormal. NRBC x10^3 (test code = 8169890619) See_Comment [Automated messa ge] The system which generated this result transmitted reference range: 10*3/?L. The reference range was not used to interpret this result as normal/abnormal. GRAN MAT (NEUT) % (test code = 770-8) 45.6 % IMM GRAN % (test code = 7840690715) 0.40 % LYMPH % (test code = 736-9) 43.7 % MONO % (test code = 5905-5) 7.8 % EOS % (test code = 713-8) 1.9 % BASO % (test code = 706-2) 0.6 % GRAN MAT x10^3(ANC) (test code = 4781939967) 4.95 10*3/uL 1.88-7.09 IMM GRAN x10^3 (test code = 1741953549) 0.04 10*3/uL 0.00-0.06 LYMPH x10^3 (test code = 731-0) 4.73 10*3/uL 1.32-3.29 H MONO x10^3 (test code = 742-7) 0.84 10*3/uL 0.33-0.92 EOS x10^3 (test code = 711-2) 0.21 10*3/uL 0.03-0.39 BASO x10^3 (test code = 704-7) 0.06 10*3/uL 0.01-0.07 Lab Interpretation (test code = 87677-6) Abnormal [facility] [id number] 07:09:13* Test Item Value Reference Range Interpretation Comme nts TROPONIN I (test code = 0094198242) 0.003 ng/mL <=0.034 TAMELA (test code = [...] of biotin. Lab Interpretation (test code = 96313-1) Normal [facility] (15638)2023-05-12 07:09:12* Test Item Value Reference Range Interpretation Comme nts NA (test code = 7669534505) 140 mmol/L 135-145 K (test code = 4135222710) 3.5 mmol/L 3.5-5.0 CL (test code = 1526734625) 106 mmol/L 98-108 CO2 TOTAL (test code = 1703669865) 27 mmol/L 23-31 AGAP (test code = 2048751472) 7 2-16 BUN (test code = 9715882675) 17 mg/dL 7-23 GLUCOSE (test code = 7497318866) 122 mg/dL 70-110 H CREATININE (test code = 8275376921) 0.62 mg/dL 0.50-1.04 TOTAL BILI (test code = 3987178099) 0.2 mg/dL 0.1-1.1 CALCIUM (test code = 2721016472) 9.2 mg/dL 8.6-10.6 T PROTEIN (test code = 2316828408) 7.8 g/dL 6.3-8.2 ALBUMIN (test code = 3642295669) 4.0 g/dL 3.5-5.0 ALK PHOS (test code = 9325534205) 106 U/L 34-122 ALTv (test code = 1742-6) 28 U/L 5-35 AST(SGOT) (test code = 6221155536) 27 U/L 13-40 eGFR (test code = 8788907818) 100.3 mL/min/1.73m2 TAMELA (test code = TAMELA) [...] imaging tests). Lab Interpretation (test code = 33282-0) Abnormal [facility] Notes Date/Time Note Provider Source 2023-05-12 04:49:07 [...] ambulated to the lobby with steady gait T Vianca Roman RN [facility] 2023-05-12 00:45:55 Formatting of this n ote might be different from the original. Patient arrived ambulatory c/o of shortness of breath that comes and goes the past three weeks with generalized weakness. [facility]
--- NOTE | 2025-06-04 11:11 | ER ---
Nurse's Notes [facility] Name: Maria G Ndiaye Age: 54 yrs Sex: Female : 1970 Arrival Date: 06/04/2025 Time: 09:43 Bed 19 Private MD: Diagnosis: Acute pulmonary edema;Dyspnea, unspecified;Palpitations Presentation: 06/04 09:53 Chief complaint: Patient states: SOB with palpitations for 1 month, got worse last ll1 night. Coronavirus screen: Client denies travel out of the [place] in the last 14 days. At this time, the client does not indicate any symptoms associated with coronavirus-19. Ebola Screen: Patient denies travel to an Ebola-affected area in the 21 days before illness onset. Initial Sepsis Screen: Does the patient meet any 2 criteria? No. Patient's initial sepsis screen is negative. Does the patient have a suspected source of infection? No. Patient's initial sepsis screen is negative. Risk Assessment: Do you want to hurt yourself or someone else? Patient reports no desire to harm self or others. Onset of symptoms was May 05, 2025. 09:53 Method Of Arrival: Ambulatory ll1 09:53 Acuity: CECILIA 3 ll1 Historical: - Allergies: 09:48 Cephalexin; jb4 09:48 z-pack; jb4 09:48 Latex, Natural Rubber; jb4 - PMHx: 09:48 Anemia; Depression; Diverticulitis; Hypertension; jb4 - PSHx: 09:48 Cholecystectomy; Ligation of fallopian tube; jb4 - Immunization history:: Adult Immunizations up to date. - Social history:: Smoking status: Patient denies any tobacco usage or history of. - Family history:: not pertinent. - Hospitalizations: : No recent hospitalization is reported. Screenin:00 [facility] ED Fall Risk Assessment (Adult) History of falling in the last 3 months, jb4 including since admission No falls in past 3 months (0 pts) Confusion or Disorientation No (0 pts) Intoxicated or Sedated No (0 pts) Impaired Gait No (0 pts) Mobility Assist Device Used No (0 pt) Altered Elimination No (0 pt) Score/Fall Risk Level 0 - 2 = Low Risk Oriented to surroundings, Maintained a safe environment. Abuse screen: Denies threats or abuse. Nutritional screening: No deficits noted. Tuberculosis screening: No symptoms or risk factors identified. Assessment: 10:00 General: Appears in no apparent distress. uncomfortable, Behavior is calm, cooperative, jb4 appropriate for age. Pain: Denies pain. Neuro: Level of Consciousness is awake, alert, obeys commands, Oriented to person, place, time, situation. Cardiovascular: Patient's skin is warm and dry. Rhythm is sinus rhythm. Respiratory: Airway is patent Respiratory effort is even, unlabored, Respiratory pattern is regular, symmetrical. GI: Reports nausea. Derm: Skin is intact, Skin is pink, warm \T\ dry. Musculoskeletal: Circulation, motion, and sensation intact. Range of motion: intact in all extremities. 11:30 Reassessment: Patient appears in no apparent distress at this time. Patient and/or jb4 family updated on plan of care and expected duration. Pain level reassessed. Patient is alert, oriented x 3, equal unlabored respirations, skin warm/dry/pink. Vital Signs: 09:53 BP 174 / 96; Pulse 71; Resp 18; Temp 97.6; Pulse Ox 100% on R/A; Weight 94.8 kg; Height ll1 5 ft. 4 in. ; Pain 0/10; 10:45 BP 127 / 68; Pulse 69; Resp 16; Pulse Ox 97% on R/A; jb4 09:53 Body Mass Index 35.87 (94.80 kg, 162.56 cm) ll1 09:53 Pain Scale: Adult ll1 ED Course: 09:45 Patient arrived in ED. im 09:47 Avila Bernard MD is Attending Physician. rn 09:48 Arm band placed on Patient placed in an exam room, on a stretcher. jb4 09:53 Triage completed. ll1 10:00 Patient has correct armband on for positive identification. Bed in low position. Call jb4 light in reach. Side rails up X 1. Provided Education on: plan of care. 10:00 No provider procedures requiring assistance completed. Inserted saline lock: 18 gauge jb4 in right antecubital area, using aseptic technique. Blood collected. 10:03 XRAY Chest (1 view) In Process Unspecified. EDMS 10:04 Basic Metabolic Panel Sent. jb4 10:04 CBC with Diff Sent. jb4 10:04 NT PRO-BNP Sent. jb4 10:04 Troponin HS Sent. jb4 10:16 EKG done, by ED staff, reviewed by Avila Bernard MD. em1 10:54 CT Chest For PE Angio In Process Unspecified. EDMS 11:31 IV discontinued, intact, bleeding controlled, No redness/swelling at site. Pressure jb4 dressing applied. Administered Medications: 11:30 Drug: Furosemide IVP 20 mg IVP once; give over 2 minutes Route: IVP; Site: right jb4 antecubital; 11:30 Follow up: Response: Medication administered at discharge. jb4 Medication: 10:00 VIS not applicable for this client. jb4 Outcome: 11:10 Discharge ordered by . rn 11:31 Discharged to home ambulatory, with family, jb4 11:31 Condition: stable 11:31 Discharge instructions given to patient, Instructed on discharge instructions, follow up and referral plans. medication usage, Demonstrated understanding of instructions, follow-up care, medications, Prescriptions given X 1, 11:32 Patient left the ED. jb4 Signatures: Dispatcher [employer] EDMS Avila Bernard MD MD rn Martinez, Eric em1 Gregory Mayen RN RN jb4 Vazquez Robert RN RN ll1 Ghada Subramanian Corrections: (The following items were deleted from the chart) 10:05 09:53 94.8 kg; Height 5 ft. 4 in.; BMI: 35.8; Pain 0/10, Adult; ll1 ll1 11:31 10:45 IV discontinued, intact, bleeding controlled, No redness/swelling at site. jb4 Pressure dressing applied, jb4
--- NOTE | 2025-06-04 11:11 | EDPHYS ---
Physician Documentation [facility] Name: Maria G Ndiaye Age: 54 yrs Sex: Female : 1970 Arrival Date: 06/04/2025 Time: 09:43 Bed 19 Private MD: ED Physician Avila Bernard HPI: 06/04 10:00 This 54 yrs old Female presents to ER via Ambulatory with complaints of rn Palpitations, Shortness Of Breath. 10:00 The patient presents with a history of irregular heart beat. Patient reports rn palpitations and mild shortness of breath. Has been having palpitations for 1 month. Started on Nebivolol. No history of heart arrhythmia. Not having chest pain. Reports intermittent episodes that last for few minutes associated with intermittent episodes of shortness of breath. Denies fever chills or productive cough. No abdominal pain. Started Ozempic recently as well.. Historical: - Allergies: 09:48 Cephalexin; jb4 09:48 z-pack; jb4 09:48 Latex, Natural Rubber; jb4 - PMHx: 09:48 Anemia; Depression; Diverticulitis; Hypertension; jb4 - PSHx: 09:48 Cholecystectomy; Ligation of fallopian tube; jb4 - Immunization history:: Adult Immunizations up to date. - Social history:: Smoking status: Patient denies any tobacco usage or history of. - Family history:: not pertinent. - Hospitalizations: : No recent hospitalization is reported. ROS: 10:00 Constitutional: Negative for fever, chills, and weight loss, Cardiovascular: Negative rn for chest pain, and edema, Respiratory: Positive for shortness of breath Abdomen/GI: Negative for abdominal pain, nausea, vomiting, diarrhea, and constipation, Back: Negative for injury and pain, MS/Extremity: Negative for injury and deformity, Skin: Negative for injury, rash, and discoloration, Neuro: Negative for headache, weakness, numbness, tingling, and seizure, Exam: 10:00 Constitutional: This is a well developed, well nourished patient who is awake, alert, rn and in no acute distress. Cardiovascular: Regular rate and rhythm. No pulse deficits. Respiratory: Positive for intermittent shortness of breath Abdomen/GI: Soft, non-tender, with normal bowel sounds. No distension or tympany. No guarding or rebound. No evidence of tenderness throughout. MS/ Extremity: Pulses equal, no cyanosis. Neurovascular intact. Full, normal range of motion. Equal circumference. Neuro: Awake and alert, GCS 15 10:27 ECG was reviewed by the Attending Physician. rn Vital Signs: 09:53 BP 174 / 96; Pulse 71; Resp 18; Temp 97.6; Pulse Ox 100% on R/A; Weight 94.8 kg; Height ll1 5 ft. 4 in. ; Pain 0/10; 10:45 BP 127 / 68; Pulse 69; Resp 16; Pulse Ox 97% on R/A; jb4 09:53 Body Mass Index 35.87 (94.80 kg, 162.56 cm) ll1 09:53 Pain Scale: Adult ll1 MDM: 09:47 Medical Screening Exam initiated rn 11:08 Differential diagnosis: arrythmia, dehydration, stress disorder, pulmonary edema, CHF. rn Data reviewed: vital signs, nurses notes, lab test result(s), EKG, radiologic studies, CT scan, plain films, and as a result, I will discharge patient. Consideration of Admission/Observation Escalation of care including admission/observation considered. Escalation considered for further workup but patient states just saw her industrial service technician and had a negative echo and stress test.. Independent interpretation of the following test(s) in the Emergency Department EKG: See my EKG interpretation above X-Ray: My interpretation is Chest x-ray images negative for pneumonia or pneumothorax per my interpretation. glassworker: rate is 71 beats/min, Rhythm is normal sinus rhythm, regular, with no ectopy, Interpretation: normal rate, normal rhythm. Care significantly affected by the following chronic conditions: Chronic anemia, hypertension, anxiety. Counseling: I had a detailed discussion with the patient and/or guardian regarding the historical points, exam findings, and any diagnostic results supporting the discharge/admit diagnosis, lab results, radiology results, the need for outpatient follow up, to return to the emergency department if symptoms worsen or persist or if there are any questions or concerns that arise at home. Special discussion: I discussed with the patient/guardian in detail that at this point there is no indication for admission to the hospital. It is understood, however, that if the symptoms persist or worsen the patient needs to return immediately for re-evaluation. Based on the history and exam findings, there is no indication for further emergent testing or inpatient evaluation. I discussed with the patient/guardian the need to see the industrial service technician for further evaluation of the symptoms. I discussed with the patient/guardian the need to see the primary care provider for further evaluation of the symptoms. ED course: Mild cardiomegaly and pulmonary edema on CT PE protocol but otherwise negative workup. Normal troponin and BNP. Patient states recently had normal echo and stress test. Recommend follow-up with cardiology once again and we will put her on 3 days of Lasix p.o. I have personally reviewed all of the results, including but not limited to blood tests and imaging deemed necessary to safely discharge this patient at this time. All results given to and printed out for patient. I personally went over all the results with the patient and answered all questions. Patient will follow-up with PCP and or specialist as discussed. Return precautions given and understood.. 06/04 09:48 Order name: Basic Metabolic Panel; Complete Time: 10:35 rn 06/04 09:48 Order name: CBC with Diff; Complete Time: : rn 06/04 09:48 Order name: NT PRO-BNP; Complete Time: 10:35 rn 06/04 09:48 Order name: Troponin HS; Complete Time: 10:35 rn 06/04 09:48 Order name: XRAY Chest (1 view); Complete Time: : rn 06/04 09:57 Order name: CT Chest For PE Angio; Complete Time: 11:03 rn 06/04 09:48 Order name: EKG; Complete Time: 09:48 rn 06/04 09:48 Order name: Cardiac monitoring; Complete Time: :57 rn 06/04 09:48 Order name: EKG - Nurse/Tech; Complete Time: 10: rn 06/04 09:48 Order name: IV Saline Lock; Complete Time: 10: rn 06/04 09:48 Order name: Labs collected and sent; Complete Time: : rn 06/04 09:48 Order name: O2 Per Protocol; Complete Time: :57 rn 06/04 09:48 Order name: O2 Sat Monitoring; Complete Time: :57 rn EC:27 Rate is 68 beats/min. Rhythm is regular. QRS [place] is Normal. MI interval is normal. QRS rn interval is normal. QT interval is normal. No Q waves. T waves are Normal. No ST changes noted. Clinical impression: Normal ECG. Interpreted by me. Reviewed by me. Administered Medications: 11:30 Drug: Furosemide IVP 20 mg IVP once; give over 2 minutes Route: IVP; Site: right jb4 antecubital; 11:30 Follow up: Response: Medication administered at discharge. 4 Disposition Summary: 06/04/25 11:10 Discharge Ordered Notes: Location: Home rn Problem: new rn Symptoms: have improved rn Condition: Stable rn Diagnosis - Acute pulmonary edema rn - Dyspnea, unspecified rn - Palpitations rn Followup: rn - With: Private Physician - When: 5 - 6 days - Reason: Recheck today's complaints, Re-evaluation by your physician Discharge Instructions: - Discharge Summary Sheet rn - Palpitations rn - Pulmonary Edema rn - Shortness of Breath, Adult rn Forms: - Medication Reconciliation Form rn - Antibiotic broomcorn thresher - Prescription Opioid Use rn - Patient Portal Instructions rn - Leadership Thank You Letter rn Prescriptions: - Lasix 20 mg Oral tablet - take 1 tablet ORAL route once daily for 3 days; 3 tablet; Refills: 0, Product rn Selection Permitted Signatures: Dispatcher [employer] EDMS Avila Bernard MD MD rn Bryson, James, RN RN jb4 Vazquez Robert RN RN ll1 Corrections: (The following items were deleted from the chart) 09:48 09:48 BASIC METABOLIC PANEL+C.LAB.BRZ ordered. EDMS EDMS 09:48 09:48 CBC+H.LAB.BRZ ordered. EDMS EDMS 09:48 09:48 PROBNP+C.LAB.BRZ ordered. EDOR EDMS 09:48 09:48 Troponin High Sensitivity+C.LAB.BRZ ordered. EDOR EDMS 10:02 10:00 Patient reports palpitations and mild shortness of breath. Has been having rn palpitations for 1 month. Started on Nebivolol. No history of heart arrhythmia. Not having chest pain. Reports intermittent episodes that last for few minutes associated with intermittent episodes of shortness of breath. Denies fever chills or productive cough. No abdominal pain.. rn
[2025-06-04] MEDS ORDERED: FUROSEMIDE 20 MG/ 2ML VIAL ONE (11:24)
[2025-06-04 11:45] VITALS: TEMP 97.6
[2025-06-04 11:46] VITALS: BP 127/68; O2SAT 97
== END 2025-06-04 11:32 | disposition home or self-care (01) ==
LOC: ER 09:43
DX: J81.0 Acute pulmonary edema (principal); R00.2 Palpitations; I10 Essential (primary) hypertension
CPT/HCPCS: 93005; 85025; 80048; 36415; 84484; 83880; 71275; 71045; 96374; 99284; Q9967; J1938